=== PATIENT | female | born 2000 | race American Indian/Alaskan Native ===

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

== ENCOUNTER 2019-05-17 10:19 | Emergency (ER) | payer OTHER ==
[2019-05-17 11:22] LABS: Bacteria,Urine 1+ /HPF (Negative); Bilirubin,Urine NEG (Negative); Blood,Urine LG (Negative); Color,Urine Yellow (Yellow); Mucus,Urine 1+ /HPF; Urobilinogen,Urine < 2.0 mg/dL (<2.0)
[2019-05-17 11:28] LABS: HCG Qualitative,Urine Negative (Negative)
[2019-05-17 11:42] LABS: RBC,Urine > 182.0 /HPF (0.0-6.0)
[2019-05-17] MEDS ORDERED: TORADOL IM ONE (11:57)
[2019-05-17] MEDS ORDERED: PEPCID PO ONE (11:58)
[2019-05-17] MEDS ORDERED: CARAFATE PO ONE (11:58)
--- NOTE | 2019-05-17 11:59 | Emergency Department Report ---
ED Abdominal Pain HPI - General Chief Complaint: Extremity Injury, Lower Stated Complaint: PAIN/WEAKNESS Time Seen by Provider: 05/17/19 11:46 Source: patient, RN notes reviewed, old records reviewed Mode of arrival: Ambulatory Limitations: No Limitations - History of Present Illness Initial Comments: This is a 18-year-old female. Patient has been evaluated by myself in the past. The patient typically follows with "family practice." The patient presents to the ER today with a complaint of left lower quadrant pain. This pain is present since 4:00 in the morning. It is sharp and throbbing. It does not radiate anywhere. It does not have exacerbating or relieving factors. Patient reports seeing her final touch up painter yesterday, and reports having had a full gynecologic exam yesterday, including smears, and STI screening. She denies headache, neck pain, chest pain, right-sided abdominal pain, shortness of breath and urinary symptoms. The patient denies DVT, pulmonary embolus risk factors. Patient treated in the ER with intramuscular ketorolac, which improved her symptoms. In the past, patient has had pelvic ultrasounds, demonstrating co mplex cysts, with arterial blood flow present. MD Complaint: abdominal pain -: Gradual Location: LLQ Radiation: none Migration to: no migration Severity scale (0 -10): 0 Quality: cramping Consistency: intermittent Improves With: other Worsens With: other - Related Data Home Medications Medication Instructions Recorded Confirmed Last Taken Cetirizine HCl [Zyrtec] 10 mg PO DAILY 07/18/13 07/18/13 Unknown Previous Rx's Medication Instructions Recorded Last Taken Type Fluticasone Propionate [Flonase] 2 sprays NS QDAY #1 bottle 09/25/14 Unknown Rx predniSONE [Deltasone] 40 mg PO QDAY #10 tab 04/10/15 Unknown Rx Acetaminophen [Tylenol Arthritis] 650 mg PO Q6HR PRN #30 tablet.er 02/16/18 Unknown Rx Ibuprofen [Motrin] 600 mg PO Q8H PRN #30 tablet 02/16/18 Unknown Rx Ibuprofen [Motrin] 800 mg PO Q8HR PRN #20 tablet 03/17/18 Unknown Rx Ondansetron [Zofran Odt] 4 mg PO Q8HR PRN #10 tab.rapdis 03/17/18 Unknown Rx Dicyclomine [Bentyl] 10 mg PO BID #20 capsule 08/29/18 Unknown Rx Ondansetron [Zofran ODT TAB] 8 mg PO Q12HR #30 tab.rapdis 08/29/18 Unknown Rx Naproxen [Naprosyn] 500 mg PO BID #14 tablet 08/31/18 Unknown Rx 21/Iron Fu/Folic Acid 1 each PO DAILY #30 tablet 11/08/18 Unknown Rx [ Complete Caplet] Acetaminophen [Non-Aspirin Extra 500 mg PO Q6HR PRN #30 tablet 05/17/19 Unknown Rx Strength] Dicyclomine [Bentyl] 10 mg PO QID PRN #20 capsule 05/17/19 Unknown Rx Ibuprofen [Motrin] 600 mg PO Q8H PRN #30 tablet 05/17/19 Unknown Rx Allergies Allergy/AdvReac Type Severity Reaction Status Date / Time No Known Allergies Allergy Verified 09/24/14 20:10 ED Review of Systems ROS: Stated complaint: PAIN/WEAKNESS Other details as noted in HPI Constitutional: denies: fever, malaise Eyes: denies: vision change ENT: denies: epistaxis Respiratory: denies: cough Cardiovascular: denies: chest pain Gastrointestinal: abdominal pain. denies: nausea, vomiting Genitourinary: denies: dysuria Musculoskeletal: denies: back pain Skin: denies: lesions Psychiatric: denies: as per HPI Hematological/Lymphatic: denies: easy bleeding ED Past Medical Hx - Past Medical History Hx Asthma: Yes Additional medical history: sinus - Surgical History Past Surgical History?: No - Social History Smoking Status: Never Smoker Substance Use Type: None - Medications Home Medications: Home Medications Medication Instructions Recorded Confirmed Last Taken Type Cetirizine HCl [Zyrtec] 10 mg PO DAILY 07/18/13 07/18/13 Unknown History Fluticasone Propionate [Flonase] 2 sprays NS QDAY #1 bottle 09/25/14 Unknown Rx predniSONE [Deltasone] 40 mg PO QDAY #10 tab 04/10/15 Unknown Rx Acetaminophen [Tylenol Arthritis] 650 mg PO Q6HR PRN #30 tablet.er 02/16/18 Unknown Rx Ibuprofen [Motrin] 600 mg PO Q8H PRN #30 tablet 02/16/18 Unknown Rx Ibuprofen [Motrin] 800 mg PO Q8HR PRN #20 tablet 03/17/18 Unknown Rx Ondansetron [Zofran Odt] 4 mg PO Q8HR PRN #10 tab.rapdis 03/17/18 Unknown Rx Dicyclomine [Bentyl] 10 mg PO BID #20 capsule 08/29/18 Unknown Rx Ondansetron [Zofran ODT TAB] 8 mg PO Q12HR #30 tab.rapdis 08/29/18 Unknown Rx Naproxen [Naprosyn] 500 mg PO BID #14 tablet 08/31/18 Unknown Rx 21/Iron Fu/Folic Acid 1 each PO DAILY #30 tablet 11/08/18 Unknown Rx [ Complete Caplet] Acetaminophen [Non-Aspirin Extra 500 mg PO Q6HR PRN #30 tablet 05/17/19 Unknown Rx Strength] Dicyclomine [Bentyl] 10 mg PO QID PRN #20 capsule 05/17/19 Unknown Rx Ibuprofen [Motrin] 600 mg PO Q8H PRN #30 tablet 05/17/19 Unknown Rx ED Physical Exam - General Limitations: No Limitations General appearance: alert, in no apparent distress, obese - Head Head exam: Present: atraumatic, normocephalic - Eye Eye exam: Present: normal appearance, EOMI. Absent: nystagmus - ENT ENT exam: Present: normal exam, normal orophraynx, mucous membranes moist, normal external ear exam - Neck Neck exam: Present: normal inspection, full ROM. Absent: tenderness, meningismus - Respiratory Respiratory exam: Present: normal lung sounds bilaterally. Absent: respiratory distress - Cardiovascular Cardiovascular Exam: Present: regular rate, normal rhythm, normal heart sounds. Absent: bradycardia, tachycardia, irregular rhythm, systolic murmur, diastolic murmur, rubs, gallop - GI/Abdominal GI/Abdominal exam: Present: soft. Absent: distended, tenderness, guarding, rebound, rigid, pulsatile mass - Extremities Exam Extremities exam: Present: normal inspection, full ROM, other (2+ pulses noted in the bilateral upper, lower extremities. Compartments soft. No long bony tenderness. The pelvis is stable.). Absent: pedal edema, joint swelling, calf tenderness - Back Exam Back exam: Present: normal inspection, full ROM. Absent: tenderness, CVA tenderness (R), CVA tenderness (L), paraspinal tenderness, vertebral tenderness - Neurological Exam Neurological exam: Present: alert, other (Extraocular movements intact. Tongue midline. No facial droop. Facial sensation intact to light touch in the V1, V2, V3 distribution bilaterally. 5 and 5 strength in 4 extremities.. Sensation is intact to light touch in 4 extremities.). Absent: motor sensory deficit - Psychiatric Psychiatric exam: Present: normal affect, normal mood - Skin Skin exam: Present: warm, dry, intact, normal color. Absent: rash ED Course Vital Signs 05/17/19 05/17/19 05/17/19 10:28 11:40 13:22 Temperature 97.9 F Pulse Rate 109 H 87 68 Respiratory 22 16 18 Rate Blood Pressure 133/73 Blood Pressure 126/63 123/80 [Left] O2 Sat by Pulse 100 99 99 Oximetry - Reevaluation(s) Reevaluation #1: 05/17/19 14:07 Differential diagnosis, including but not limited to: Ovarian cyst, urinary tract infection, dysmenorrhea, dysfunctional uterine bleeding, constipation Assessment and plan: This is a 18-year-old female with recurrent abdominal pain. The patient is afebrile with reassuring vital signs. 08 tachycardia has resolved. I have evaluated this patient in the past for similar symptoms. Laboratory studies unremarkable. Patient nurses having a gynecologic examination yesterday. She is nontender, and does not appear to be in any acute distress, therefore, ovarian torsion is quite unlikely. X-ray of the abdomen negative for acute disease, pelvic ultrasound ordered and pending at this time. 14:10 Reevaluation #2: 05/17/19 14:22 Patient noted to be playing on cell phone, and perusing social media. She is requesting to eat and drink. Belly soft on repeat exam. Ultrasound negative for acute disease. ED Medical Decision Making - Lab Data Result diagrams: 05/17/19 12:27 05/17/19 12:27 Vital Signs 05/17/19 05/17/19 05/17/19 10: 11:40 13:22 Temperature 97.9 F Pulse Rate 109 H 87 68 Respiratory 22 16 18 Rate Blood Pressure 133/73 Blood Pressure 126/63 123/80 [Left] O2 Sat by Pulse 100 99 99 Oximetry Lab Results 05/17/19 05/17/19 05/17/19 Range/Units 10:41 12:27 12:27 WBC 9.6 (4.5-11.0) K/mm3 RBC 4.23 (3.65-5.03) M/mm3 Hgb 12.3 (10.1-14.3) gm/dl Hct 37.7 (30.3-42.9) % MCV 89 (79-97) fl MCH 29 (28-32) pg MCHC 33 (30-34) % RDW 13.4 (13.2-15.2) % Plt Count 349 (140-440) K/mm3 Sodium 143 (137-145) mmol/L Potassium 4.1 (3.6-5.0) mmol/L Chloride 103.5 (98-107) mmol/L Carbon Dioxide 28 (22-30) mmol/L Anion Gap 16 mmol/L BUN 10 (7-17) mg/dL Creatinine 0.7 (0.7-1.2) mg/dL Estimated GFR > 60 ml/min BUN/Creatinine Ratio 14 % Glucose 106 H (65-100) mg/dL Calcium 9.5 (8.4-10.2) mg/dL Magnesium (1.7-2.3) mg/dL Total Bilirubin 0.30 (0.1-1.2) mg/dL AST 15 (5-40) units/L ALT 10 (7-56) units/L Alkaline Phosphatase 86 (35-129) units/L Total Creatine Kinase (30-135) units/L Total Protein 8.0 (6.3-8.2) g/dL Albumin 4.4 (3.9-5) g/dL Albumin/Globulin Ratio 1.2 % Lipase 14 (13-60) units/L Urine Color Yellow (Yellow) Urine Turbidity Clear (Clear) Urine pH 6.0 (5.0-7.0) Ur Specific Cardale 1.012 (1.003-1.030) Urine Protein 30 mg/dl (Negative) mg/dL Urine Glucose (UA) Neg (Negative) mg/dL Urine Ketones Neg (Negative) mg/dL Urine Blood Lg (Negative) Urine Nitrite Neg (Negative) Urine Bilirubin Neg (Negative) Urine Urobilinogen < 2.0 (<2.0) mg/dL Ur Leukocyte Esterase Sm (Negative) Urine WBC (Auto) 5.0 (0.0-6.0) /HPF Urine RBC (Auto) > 182.0 (0.0-6.0) /HPF U Epithel Cells (Auto) 3.0 (0-13.0) /HPF Urine Bacteria (Auto) 1+ (Negative) /HPF Urine Mucus 1+ /HPF Urine HCG, Qual Negative (Negative) 05/17/19 Range/Units 12:27 WBC (4.5-11.0) K/mm3 RBC (3.65-5.03) M/mm3 Hgb (10.1-14.3) gm/dl Hct (30.3-42.9) % MCV (79-97) fl MCH (28-32) pg MCHC (30-34) % RDW (13.2-15.2) % Plt Count (140-440) K/mm3 Sodium (137-145) mmol/L Potassium (3.6-5.0) mmol/L Chloride (98-107) mmol/L Carbon Dioxide (22-30) mmol/L Anion Gap mmol/L BUN (7-17) mg/dL Creatinine (0.7-1.2) mg/dL Estimated GFR ml/min BUN/Creatinine Ratio % Glucose (65-100) mg/dL Calcium (8.4-10.2) mg/dL Magnesium 1.90 (1.7-2.3) mg/dL Total Bilirubin (0.1-1.2) mg/dL AST (5-40) units/L ALT (7-56) units/L Alkaline Phosphatase (35-129) units/L Total Creatine Kinase 220 H (30-135) units/L Total Protein (6.3-8.2) g/dL Albumin (3.9-5) g/dL Albumin/Globulin Ratio % Lipase (13-60) units/L Urine Color (Yellow) Urine Turbidity (Clear) Urine pH (5.0-7.0) Ur Specific Cardale (1.003-1.030) Urine Protein (Negative) mg/dL Urine Glucose (UA) (Negative) mg/dL Urine Ketones (Negative) mg/dL Urine Blood (Negative) Urine Nitrite (Negative) Urine Bilirubin (Negative) Urine Urobilinogen (<2.0) mg/dL Ur Leukocyte Esterase (Negative) Urine WBC (Auto) (0.0-6.0) /HPF Urine RBC (Auto) (0.0-6.0) /HPF U Epithel Cells (Auto) (0-13.0) /HPF Urine Bacteria (Auto) (Negative) /HPF Urine Mucus /HPF Urine HCG, Qual (Negative) - Radiology Data Radiology results: report reviewed, image reviewed Ordering Physician: MARIBEL ROMANO MD Date of Service: 05/17/19 Procedure(s): XR abdomen 2V Accession Number(s): [id number] cc: MARIBEL ROMANO MD Fluoro Time In Minutes: SUPINE AND UPRIGHT ABDOMEN 05/17/2019 12:10 PM HISTORY: Abdominal Pain. FINDINGS: There is a normal bowel gas pattern without evidence of obstruction. No free air is identified. No abnormal calcifications or organomegaly. No osseous abnormality. A metal piercing in the umbilicus. IMPRESSION: Negative 2 views of the abdomen. Signer Name: Ledy Frazier MD Signed: 05/17/2019 12:31 PM Workstation Name: [id number] Transcribed By: REF Dictated By: LEDY FRAZIER MD Electronically Authenticated By: LEDY FRAZIER MD Signed Date/Time: 05/17/19 1231 Patient Name: DUNIA WATT Gender: Female Date of : 2000 Referring Provider: MARIBEL ROMAON Organization: [facility] Accession Number: [id number] Requested Date: May 17, 2019 11:57 Report Status: Final Requested Procedure: 1 Procedure Description: US transvaginal Modality: US Findings Reporting MD: Nathan Patel Dictation Time: May 17, 2019 12:36 Parasitologist: Not available Regional [facility]ster Date: Pelvic Ultrasound HISTORY: lower abd pain. Acute lower abdominal pain TECHNIQUE: Grayscale and color Doppler imaging performed. COMPARISON: Pelvic ultrasound from 10/10/2018 FINDINGS: Transabdominal and endovaginal imaging was performed. Uterus measures 7.2 x 2.6 x 3.8 cm in AP, transverse, and craniocaudal dimensions. The endometrial echo complex measures 3 mm. Uterus appears normal in echogenicity. Both ovaries are normal in size with small bilateral ovarian follicles. No appreciable pelvic free fluid. There is retained normal blood flow within the ovaries. IMPRESSION: Unremarkable exam. Signer Name: Nathan Patel MD Signed: 05/17/2019 12:36 PM Workstation Name: [id number] HISTORY: lower abd pain. Acute lower abdominal pain TECHNIQUE: Grayscale and color Doppler imaging performed. COMPARISON: Pelvic ultrasound from 10/10/2018 FINDINGS: Transabdominal and endovaginal imaging was performed. Uterus measures 7.2 x 2.6 x 3.8 cm in AP, transverse, and craniocaudal dimensions. The endometrial echo complex measures 3 mm. Uterus appears normal in echogenicity. Both ovaries are normal in size with small bilateral ovarian follicles. No appreciable pelvic free fluid. There is retained normal blood flow within the ovaries. IMPRESSION: Unremarkable exam. Critical care attestation.: If time is entered above; I have spent that time in minutes in the direct care of this critically ill patient, excluding procedure time. ED Disposition Clinical Impression: Left sided abdominal pain Disposition: DC-01 TO HOME OR SELFCARE Is pt being admited?: No Does the pt Need Aspirin: No Condition: Stable Instructions: Abdominal Pain (ED) Additional Instructions: Take the pain medications as needed/directed. Rest, avoid heavy lifting, and avoid strenuous physical activities. Please follow up with a primary care doctor or [employer] physician within the next few weeks. Return to the emergency room right away with projectile vomiting, change in mental status, confusion, inability to tolerate liquid feeds, new, worsening or different symptoms not present on initial emergency room evaluation. Avoid consumption of heavy, spicy foods, drink 4-6 cups of water per day, and eat plenty of fiber and vegetables. Prescriptions: Dicyclomine [Bentyl] 10 mg PO QID PRN #20 capsule PRN Reason: Pain Ibuprofen [Motrin] 600 mg PO Q8H PRN #30 tablet PRN Reason: Pain Acetaminophen [Non-Aspirin Extra Strength] 500 mg PO Q6HR PRN #30 tablet PRN Reason: Pain , Severe (7-10) Referrals: CORY JEFF MD [Primary Care Provider] - 3-5 Days
--- NOTE | 2019-05-17 12:36 | XRay Report ---
SUPINE AND UPRIGHT ABDOMEN 05/17/2019 12:10 PM HISTORY: Abdominal Pain. FINDINGS: There is a normal bowel gas pattern without evidence of obstruction. No free air is identi fied. No abnormal calcifications or organomegaly. No osseous abnormality. A metal piercing in the umbilicus. IMPRESSION: Negative 2 views of the abdomen. Signer Name: Salvador Boudreaux MD Signed: 05/17/2019 12:31 PM Workstation Name: [id number]
[2019-05-17 12:43] LABS: Hematocrit 37.7 % (30.3-42.9); Hemoglobin 12.3 gm/dl (10.1-14.3); Mean Corpuscular HGB Conc 33 % (30-34); Mean Corpuscular Volume 89 fl (79-97); Platelet Count 349 K/mm3 (140-440); Red Blood Count 4.23 M/mm3 (3.65-5.03); Red Cell Distribution Width 13.4 % (13.2-15.2)
[2019-05-17 12:57] LABS: Alanine Aminotransferase 10 units/L (7-56); Albumin 4.4 g/dL (3.9-5); BUN/Creatinine Ratio 14; Blood Urea Nitrogen 10 mg/dL (7-17); Calcium 9.5 mg/dL (8.4-10.2); Hemolysis Index 4
[2019-05-17 14:30] VITALS: BP 102/53
--- NOTE | 2019-05-18 08:11 | Ultrasound Report ---
Pelvic Ultrasound HISTORY: lower abd pain. Acute lower abdominal pain TECHNIQUE: Grayscale and color Doppler imaging performed. COMPARISON: Pelvic ultrasound from 10/10/2018 FINDINGS: Transabdominal and endovaginal imaging was performed. Uterus measures 7.2 x 2.6 x 3.8 cm in AP, transverse, and craniocaudal dimensions. The endometrial ec ho complex measures 3 mm. Uterus appears normal in echogenicity. Both ovaries are normal in size with small bilateral ovarian follicles. No appreciable pelvic free fluid. There is retained normal blood flow within the ovaries. IMPRESSION: Unremarkable exam. Signer Name: Nathan Patel MD Signed: 05/17/2019 1:36 PM Workstation Name: [id number]
== END 2019-05-17 14:30 | disposition home or self-care (01) ==
LOC: ED 10:19
DX: R10.32 Left lower quadrant pain (principal); J45.909 Unspecified asthma, uncomplicated; Z79.1 Long term (current) use of non-steroidal anti-inflammatories (NSAID); Z79.899 Other long term (current) drug therapy
CPT/HCPCS: 36415; 74019; 76830; 80053; 81001; 81025; 82550; 83690; 83735; 85027; 93975; 96372; 99284; J1885

== ENCOUNTER 2019-07-16 16:33 | Emergency (ER) | payer OTHER ==
--- NOTE | 2019-07-16 16:39 | Event Note ---
ED Screening Note ED Screening Note: lower abd pain for a qweek lower back pain states having "heart burn" intermittent n/v no diarrhea +urinary frequency LNMP: june 11 PMHx asthma no allergies to meds This initial assessment/diagnostic orders/clinical plan/treatment(s) is/are subject to change based on patients health status, clinical progression and re- assessment by fellow clinical providers in the ED. Further treatment and workup at subsequent clinical providers discretion. Patient/guardian urged not to elope from the ED as their condition may be serious if not clinically assessed and managed. Initial orders include: labs, UA
[2019-07-16 17:05] LABS: Bacteria,Urine 1+ /HPF (Negative); Bilirubin,Urine NEG (Negative); Blood,Urine NEG (Negative); Color,Urine Yellow (Yellow); Mucus,Urine FEW /HPF; Protein,Urine <15 mg/dL mg/dL (Negative); Urobilinogen,Urine < 2.0 mg/dL (<2.0); WBC,Urine < 1.0 /HPF (0.0-6.0)
[2019-07-16 17:19] LABS: Basophils % (Auto) 0.4 % (0.0-1.8); Eosinophils # (Auto) 0.1 K/mm3 (0.0-0.4); Eosinophils % (Auto) 0.6 % (0.0-4.3); Hematocrit 34.5 % (30.3-42.9); Hemoglobin 11.4 gm/dl (10.1-14.3); Lymphocytes # (Auto) 3.7 K/mm3 (1.2-5.4); Mean Corpuscular HGB Conc 33 % (30-34); Mean Corpuscular Volume 91 fl (79-97); Monocytes # (Auto) 0.7 K/mm3 (0.0-0.8); Monocytes % (Auto) 6.2 % (0.0-7.3); Platelet Count 287 K/mm3 (140-440); Red Blood Count 3.81 M/mm3 (3.65-5.03); Red Cell Distribution Width 13.7 % (13.2-15.2)
[2019-07-16 17:37] LABS: Alanine Aminotransferase 10 units/L (7-56); Albumin 4.2 g/dL (3.9-5); BUN/Creatinine Ratio 11; Blood Urea Nitrogen 9 mg/dL (7-17); Calcium 9.1 mg/dL (8.4-10.2); Hemolysis Index 3
[2019-07-16] MEDS ORDERED: DICYCLOMINE 20 MG/2 ML INJ IM ONE (17:55)
[2019-07-16] MEDS ORDERED: ONDANSETRON 4 MG/2 ML INJ IM ONE (17:55)
[2019-07-16] MEDS ORDERED: KETOROLAC 60 MG/2 ML INJ IM ONE (17:55)
--- NOTE | 2019-07-16 18:19 | Emergency Department Report ---
ED Abdominal Pain HPI - General Chief Complaint: Abdominal Pain Stated Complaint: ABD PAIN/VOMITING Time Seen by Provider: 07/16/19 16:38 Source: patient Mode of arrival: Ambulatory Limitations: No Limitations - History of Present Illness MD Complaint: abdominal pain -: Gradual, week(s) (1) Location: RUQ, epigastric Radiation: back Migration to: no migration Severity scale (0 -10): 7 Quality: cramping, aching Consistency: intermittent, colicky Improves With: rest Worsens With: eating Context: other (patient believes that her symptoms are coming from eating spicy foods. Despite having worsening symptoms after eating potato chips patient is continued) Associated Symptoms: nausea, vomiting. denies: diarrhea, fever, chills, constipation, dysuria, hematemesis - Related Data Home Medications Medication Instructions Recorded Confirmed Last Taken Cetirizine HCl [Zyrtec] 10 mg PO DAILY 07/18/13 07/18/13 Unknown Previous Rx's Medication Instructions Recorded Last Taken Type Fluticasone Propionate [Flonase] 2 sprays NS QDAY #1 bottle 09/25/14 Unknown Rx predniSONE [Deltasone] 40 mg PO QDAY #10 tab 04/10/15 Unknown Rx Acetaminophen [Tylenol Arthritis] 650 mg PO Q6HR PRN #30 tablet.er 02/16/18 U nknown Rx Ibuprofen [Motrin] 600 mg PO Q8H PRN #30 tablet 02/16/18 Unknown Rx Ibuprofen [Motrin] 800 mg PO Q8HR PRN #20 tablet 03/17/18 Unknown Rx Ondansetron [Zofran Odt] 4 mg PO Q8HR PRN #10 tab.rapdis 03/17/18 Unknown Rx Dicyclomine [Bentyl] 10 mg PO BID #20 capsule 08/29/18 Unknown Rx Ondansetron [Zofran ODT TAB] 8 mg PO Q12HR #30 tab.rapdis 08/29/18 Unknown Rx Naproxen [Naprosyn] 500 mg PO BID #14 tablet 08/31/18 Unknown Rx 21/Iron Fu/Folic Acid 1 each PO DAILY #30 tablet 11/08/18 Unknown Rx [ Complete Caplet] Acetaminophen [Non-Aspirin Extra 500 mg PO Q6HR PRN #30 tablet 05/17/19 Unknown Rx Strength] Dicyclomine [Bentyl] 10 mg PO QID PRN #20 capsule 05/17/19 Unknown Rx Ibuprofen [Motrin] 600 mg PO Q8H PRN #30 tablet 05/17/19 Unknown Rx Ondansetron [Zofran Odt] 4 mg PO Q8HR #10 tab.rapdis 07/16/19 Unknown Rx Pantoprazole [Protonix] 40 mg PO QDAY #30 tablet 07/16/19 Unknown Rx traMADol [Ultram] 50 mg PO Q6HR PRN #12 tablet 07/16/19 Unknown Rx Allergies Allergy/AdvReac Type Severity Reaction Status Date / Time No Known Allergies Allergy Verified 09/24/14 20:10 ED Review of Systems ROS: Stated complaint: ABD PAIN/VOMITING Other details as noted in HPI ED Past Medical Hx - Past Medical History Previous Medical History?: Yes Hx Asthma: Yes Additional medical history: sinus - Surgical History Past Surgical History?: No - Social History Smoking Status: Never Smoker Substance Use Type: None - Medications Home Medications: Home Medications Medication Instructions Recorded Confirmed Last Taken Type Cetirizine HCl [Zyrtec] 10 mg PO DAILY 07/18/13 07/18/13 Unknown History Fluticasone Propionate [Flonase] 2 sprays NS QDAY #1 bottle 09/25/14 Unknown Rx predniSONE [Deltasone] 40 mg PO QDAY #10 tab 04/10/15 Unknown Rx Acetaminophen [Tylenol Arthritis] 650 mg PO Q6HR PRN #30 tablet.er 02/16/18 Unknown Rx Ibuprofen [Motrin] 600 mg PO Q8H PRN #30 tablet 02/16/18 Unknown Rx Ibuprofen [Motrin] 800 mg PO Q8HR PRN #20 tablet 03/17/18 Unknown Rx Ondansetron [Zofran Odt] 4 mg PO Q8HR PRN #10 tab.rapdis 03/17/18 Unknown Rx Dicyclomine [Bentyl] 10 mg PO BID #20 capsule 08/29/18 Unknown Rx Ondansetron [Zofran ODT TAB] 8 mg PO Q12HR #30 tab.rapdis 08/29/18 Unknown Rx Naproxen [Naprosyn] 500 mg PO BID #14 tablet 08/31/18 Unknown Rx 21/Iron Fu/Folic Acid 1 each PO DAILY #30 tablet 11/08/18 Unknown Rx [ Complete Caplet] Acetaminophen [Non-Aspirin Extra 500 mg PO Q6HR PRN #30 tablet 05/17/19 Unknown Rx Strength] Dicyclomine [Bentyl] 10 mg PO QID PRN #20 capsule 05/17/19 Unknown Rx Ibuprofen [Motrin] 600 mg PO Q8H PRN #30 tablet 05/17/19 Unknown Rx Ondansetron [Zofran Odt] 4 mg PO Q8HR #10 tab.rapdis 07/16/19 Unknown Rx Pantoprazole [Protonix] 40 mg PO QDAY #30 tablet 07/16/19 Unknown Rx traMADol [Ultram] 50 mg PO Q6HR PRN #12 tablet 07/16/19 Unknown Rx ED Physical Exam - General Limitations: No Limitations ED Course Vital Signs 07/16/19 16:35 Temperature 98.7 F Pulse Rate 98 H Respiratory 18 Rate Blood Pressure 152/93 O2 Sat by Pulse 96 Oximetry ED Medical Decision Making - Lab Data Result diagrams: 07/16/19 16:57 07/16/19 16:57 - Radiology Data [facility] [address] [place] [address] Ultrasound Report Signed Patient: DUNIA WATT MR#: [id number] : 2000 Acct:[id number] Age/Sex: 18 / F ADM Date: 07/16/19 Loc: ED Attending Dr: Ordering Physician: PRANEETH BRUNER MD Date of Service: 07/16/19 Procedure(s): US abdomen limited Accession Number(s): [id number] cc: PRANEETH BRUNER MD ULTRASOUND ABDOMEN, LIMITED (RIGHT UPPER QUADRANT) INDICATION: RUQ pain with nausea and vomiting for 1 week. COMPARISON: None available. FINDINGS: PANCREAS: Visualized portion shows no significant abnormality. LIVER: 15.5 cm in length with a normal echo pattern compared to the right renal cortex. No focal lesion. GALLBLADDER: Mildly contracted and thick-walled without visible gallstones. BILE DUCTS: No significant abnormality. Common bile duct measures 3.6 mm. FREE FLUID: None. ADDITIONAL FINDINGS: Images of the right kidney are unremarkable. IMPRESSION: Mildly contracted gallbladder without gallstones. Signer Name: Krzysztof Hurst MD Signed: 07/16/2019 7:52 PM Workstation Name: [id number] Transcribed By: RT Dictated By: Krzysztof Hurst MD Electronically Authenticated By: Krzysztof Hurst MD Signed Date/Time: 07/16/191951 - Medical Decision Making Patient's pleasant differential diagnosis which includes cholelithiasis cholecystitis pancreatitis gastric or duodenal ulcers hiatal hernia and GERD. Patient's ultrasound is not consistent with gallstones. Patient will be referred to gastroenterology for possible EGD. Patient will be discharged home with medications for symptomatic relief. Critical care attestation.: If time is entered above; I have spent that time in minutes in the direct care of this critically ill patient, excluding procedure time. ED Disposition Clinical Impression: PUD (peptic ulcer disease) Disposition: DC-01 TO HOME OR SELFCARE Is pt being admited?: No Does the pt Need Aspirin: No Condition: Stable Instructions: Abdominal Pain (ED), Peptic Ulcer (ED), Gastritis (ED) Referrals: [facility] [Provider Group] - 3-5 Days Time of Disposition: 20:18
--- NOTE | 2019-07-16 19:57 | Ultrasound Report ---
ULTRASOUND ABDOMEN, LIMITED (RIGHT UPPER QUADRANT) INDICATION: RUQ pain with nausea and vomiting for 1 week. COMPARISON: None available. FINDINGS: PANCREAS: Visualized portion shows no significant abnormality. LIVER: 15.5 cm in length with a normal echo pattern compared to the right renal cortex. No focal lesi on. GALLBLADDER: Mildly contracted and thick-walled without visible gallstones. BILE DUCTS: No significant abnormality. Common bile duct measures 3.6 mm. FREE FLUID: None. ADDITIONAL FINDINGS: Images of the right kidney are unremarkable. IMPRESSION: Mildly contracted gallbladder without gallstones. Signer Name: Krzysztof Hurst MD Signed: 07/16/2019 7:52 PM Workstation Name: [id number]
[2019-07-16 20:40] VITALS: BP 138/88
== END 2019-07-16 20:34 | disposition home or self-care (01) ==
LOC: ED 16:33
DX: K27.9 Peptic ulcer, site unspecified, unspecified as acute or chronic, without hemorrhage or perforation (principal); J45.909 Unspecified asthma, uncomplicated; Z79.899 Other long term (current) drug therapy
CPT/HCPCS: 36415; 76705; 80053; 81001; 83690; 84702; 85025; 96372; 99284; J0500; J1885; J2405

== ENCOUNTER 2019-08-29 03:33 | Emergency (ER) | payer SELFPAY ==
[2019-08-29] MEDS ORDERED: ACETAMINOPHEN 325 MG TAB PO ONE (04:00)
[2019-08-29 04:30] LABS: Basophils % (Auto) 0.2 % (0.0-1.8); Eosinophils % (Auto) 0.2 % (0.0-4.3); Hematocrit 36.2 % (30.3-42.9); Hemoglobin 12.1 gm/dl (10.1-14.3); Lymphocytes # (Auto) 2.5 K/mm3 (1.2-5.4); Lymphocytes % (Auto) 17.4 % (13.4-35.0); Mean Corpuscular HGB Conc 33 % (30-34); Mean Corpuscular Volume 90 fl (79-97); Monocytes # (Auto) 0.6 K/mm3 (0.0-0.8); Monocytes % (Auto) 4.5 % (0.0-7.3); Platelet Count 335 K/mm3 (140-440); Red Blood Count 4.05 M/mm3 (3.65-5.03); Red Cell Distribution Width 13.3 % (13.2-15.2)
[2019-08-29 04:30] LABS: Bacteria,Urine 1+ /HPF (Negative); Bilirubin,Urine NEG (Negative); Blood,Urine NEG (Negative); Color,Urine Yellow (Yellow); Mucus,Urine FEW /HPF; Protein,Urine <15 mg/dL mg/dL (Negative); Urobilinogen,Urine < 2.0 mg/dL (<2.0)
[2019-08-29 04:53] LABS: Alanine Aminotransferase 14 units/L (7-56); Albumin 4.5 g/dL (3.9-5); BUN/Creatinine Ratio 13; Blood Urea Nitrogen 9 mg/dL (7-17); Calcium 9.7 mg/dL (8.4-10.2); Hemolysis Index 4
[2019-08-29] MEDS ORDERED: SODIUM CHLORIDE 0.9% 1000 ML 1,000 ML IV ONE (05:58)
[2019-08-29] MEDS ORDERED: ONDANSETRON 4 MG/2 ML INJ IV ONE (05:58)
[2019-08-29] MEDS ORDERED: MORPHINE 4 MG/1 ML INJ IV ONE (05:58)
--- NOTE | 2019-08-29 06:12 | Emergency Department Report ---
ED Abdominal Pain HPI - General Chief Complaint: Abdominal Pain Stated Complaint: PAIN, UNABLE TO SLEEP Time Seen by Provider: 08/29/19 05:35 Source: patient Mode of arrival: Ambulatory Limitations: No Limitations - History of Present Illness Initial Comments: Patient is a 18-year-old female presents emergency room with complaints of right sided abdominal pain and right lower back pain that began last night. She states she has not had a bowel movement in approximately 4-5 days. She states she has associated nausea and 2 episodes of vomiting. She denies any diarrhea, fever, urinary symptoms, any other symptoms. She states her last menstrual cyc le was 08/14/2019. She denies any past medical history or allergies medications. - Related Data Home Medications Medication Instructions Recorded Confirmed Last Taken Cetirizine HCl [Zyrtec] 10 mg PO DAILY 07/18/13 07/18/13 Unknown Previous Rx's Medication Instructions Recorded Last Taken Type Fluticasone Propionate [Flonase] 2 sprays NS QDAY #1 bottle 09/25/14 Unknown Rx predniSONE [Deltasone] 40 mg PO QDAY #10 tab 04/10/15 Unknown Rx Acetaminophen [Tylenol Arthritis] 650 mg PO Q6HR PRN #30 tablet.er 02/16/18 Un known Rx Ibuprofen [Motrin] 600 mg PO Q8H PRN #30 tablet 02/16/18 Unknown Rx Ibuprofen [Motrin] 800 mg PO Q8HR PRN #20 tablet 03/17/18 Unknown Rx Ondansetron [Zofran Odt] 4 mg PO Q8HR PRN #10 tab.rapdis 03/17/18 Unknown Rx Dicyclomine [Bentyl] 10 mg PO BID #20 capsule 08/29/18 Unknown Rx Ondansetron [Zofran ODT TAB] 8 mg PO Q12HR #30 tab.rapdis 08/29/18 Unknown Rx Naproxen [Naprosyn] 500 mg PO BID #14 tablet 08/31/18 Unknown Rx 21/Iron Fu/Folic Acid 1 each PO DAILY #30 tablet 11/08/18 Unknown Rx [ Complete Caplet] Acetaminophen [Non-Aspirin Extra 500 mg PO Q6HR PRN #30 tablet 05/17/19 Unknown Rx Strength] Dicyclomine [Bentyl] 10 mg PO QID PRN #20 capsule 05/17/19 Unknown Rx Ibuprofen [Motrin] 600 mg PO Q8H PRN #30 tablet 05/17/19 Unknown Rx Ondansetron [Zofran Odt] 4 mg PO Q8HR #10 tab.rapdis 07/16/19 Unknown Rx Pantoprazole [Protonix] 40 mg PO QDAY #30 tablet 07/16/19 Unknown Rx traMADoL [Ultram] 50 mg PO Q6HR PRN #12 tablet 07/16/19 Unknown Rx Famotidine [Pepcid] 40 mg PO QHS #30 tablet 08/29/19 Unknown Rx Polyethylene Glycol 3350 [Miralax] 7 gm PO DAILY PRN #1 powder 08/29/19 Unknown Rx Sucralfate [Carafate] 1 gm PO ACHS #21 tablet 08/29/19 Unknown Rx Allergies Allergy/AdvReac Type Severity Reaction Status Date / Time No Known Allergies Allergy Verified 09/24/14 20:10 ED Review of Systems ROS: Stated complaint: PAIN, UNABLE TO SLEEP Other details as noted in HPI Comment: All other systems reviewed and negative ED Past Medical Hx - Past Medical History Previous Medical History?: Yes Hx Asthma: Yes Additional medical history: sinus - Surgical History Past Surgical History?: No - Social History Smoking Status: Never Smoker Substance Use Type: None - Medications Home Medications: Home Medications Medication Instructions Recorded Confirmed Last Taken Type Cetirizine HCl [Zyrtec] 10 mg PO DAILY 07/18/13 07/18/13 Unknown History Fluticasone Propionate [Flonase] 2 sprays NS QDAY #1 bottle 09/25/14 Unknown Rx predniSONE [Deltasone] 40 mg PO QDAY #10 tab 04/10/15 Unknown Rx Acetaminophen [Tylenol Arthritis] 650 mg PO Q6HR PRN #30 tablet.er 02/16/18 Unknown Rx Ibuprofen [Motrin] 600 mg PO Q8H PRN #30 tablet 02/16/18 Unknown Rx Ibuprofen [Motrin] 800 mg PO Q8HR PRN #20 tablet 03/17/18 Unknown Rx Ondansetron [Zofran Odt] 4 mg PO Q8HR PRN #10 tab.rapdis 03/17/18 Unknown Rx Dicyclomine [Bentyl] 10 mg PO BID #20 capsule 08/29/18 Unknown Rx Ondansetron [Zofran ODT TAB] 8 mg PO Q12HR #30 tab.rapdis 08/29/18 Unknown Rx Naproxen [Naprosyn] 500 mg PO BID #14 tablet 08/31/18 Unknown Rx 21/Iron Fu/Folic Acid 1 each PO DAILY #30 tablet 11/08/18 Unknown Rx [ Complete Caplet] Acetaminophen [Non-Aspirin Extra 500 mg PO Q6HR PRN #30 tablet 05/17/19 Unknown Rx Strength] Dicyclomine [Bentyl] 10 mg PO QID PRN #20 capsule 05/17/19 Unknown Rx Ibuprofen [Motrin] 600 mg PO Q8H PRN #30 tablet 05/17/19 Unknown Rx Ondansetron [Zofran Odt] 4 mg PO Q8HR #10 tab.rapdis 07/16/19 Unknown Rx Pantoprazole [Protonix] 40 mg PO QDAY #30 tablet 07/16/19 Unknown Rx traMADoL [Ultram] 50 mg PO Q6HR PRN #12 tablet 07/16/19 Unknown Rx Famotidine [Pepcid] 40 mg PO QHS #30 tablet 08/29/19 Unknown Rx Polyethylene Glycol 3350 [Miralax] 7 gm PO DAILY PRN #1 powder 08/29/19 Unknown Rx Sucralfate [Carafate] 1 gm PO ACHS #21 tablet 08/29/19 Unknown Rx ED Physical Exam - General Limitations: No Limitations General appearance: alert, in no apparent distress - Head Head exam: Present: atraumatic, normocephalic - Eye Eye exam: Present: normal appearance - ENT ENT exam: Present: mucous membranes moist - Respiratory Respiratory exam: Present: normal lung sounds bilaterally. Absent: respiratory distress, wheezes, rales, rhonchi, stridor, chest wall tenderness, accessory muscle use, decreased breath sounds, prolonged expiratory - Cardiovascular Cardiovascular Exam: Present: regular rate, normal rhythm, normal heart sounds. Absent: systolic murmur, diastolic murmur, rubs, gallop - GI/Abdominal GI/Abdominal exam: Present: soft, tenderness (mild generalized), normal bowel sounds. Absent: distended, guarding, rebound, rigid - Neurological Exam Neurological exam: Present: alert, oriented X3 - Psychiatric Psychiatric exam: Present: normal affect, normal mood - Skin Skin exam: Present: warm, dry, intact ED Course Vital Signs 08/29/19 08/29/1919 03:48 04:00 05:00 Temperature 98.6 F Pulse Rate 128 H Respiratory 18 18 18 Rate Blood Pressure 156/86 Blood Pressure [Right] O2 Sat by Pulse 98 Oximetry 08/29/19 06:37 Temperature Pulse Rate 84 Respiratory 16 Rate Blood Pressure Blood Pressure 111/68 [Right] O2 Sat by Pulse 100 Oximetry ED Medical Decision Making - Lab Data Result diagrams: 08/29/19 04:05 08/29/19 04:05 Lab Results 08/29/19 08/29/19 08/29/19 Range/Units 03:52 04:05 04:05 WBC 14.3 H (4.5-11.0) K/mm3 RBC 4.05 (3.65-5.03) M/mm3 Hgb 12.1 (10.1-14.3) gm/dl Hct 36.2 (30.3-42.9) % MCV 90 (79-97) fl MCH 30 (28-32) pg MCHC 33 (30-34) % RDW 13.3 (13.2-15.2) % Plt Count 335 (140-440) K/mm3 Lymph % (Auto) 17.4 (13.4-35.0) % [place] % (Auto) 4.5 (0.0-7.3) % Eos % (Auto) 0.2 (0.0-4.3) % Baso % (Auto) 0.2 (0.0-1.8) % Lymph # 2.5 (1.2-5.4) K/mm3 [place] # 0.6 (0.0-0.8) K/mm3 Eos # 0.0 (0.0-0.4) K/mm3 Baso # 0.0 (0.0-0.1) K/mm3 Seg Neutrophils % 77.7 H (40.0-70.0) % Seg Neutrophils # 11.1 H (1.8-7.7) K/mm3 Sodium 144 (137-145) mmol/L Potassium 4.2 (3.6-5.0) mmol/L Chloride 98.5 (98-107) mmol/L Carbon Dioxide 25 (22-30) mmol/L Anion Gap 25 mmol/L BUN 9 (7-17) mg/dL Creatinine 0.7 (0.7-1.2) mg/dL Estimated GFR > 60 ml/min BUN/Creatinine Ratio 13 % Glucose 126 H (65-100) mg/dL Calcium 9.7 (8.4-10.2) mg/dL Total Bilirubin 0.20 (0.1-1.2) mg/dL AST 15 (5-40) units/L ALT 14 (7-56) units/L Alkaline Phosphatase 84 (35-129) units/L Total Protein 7.8 (6.3-8.2) g/dL Albumin 4.5 (3.9-5) g/dL Albumin/Globulin Ratio 1.4 % HCG, Qual (Negative) Urine Color Yellow (Yellow) Urine Turbidity Slightly-cloudy (Clear) Urine pH 6.0 (5.0-7.0) Ur Specific [place] 1.016 (1.003-1.030) Urine Protein <15 mg/dl (Negative) mg/dL Urine Glucose (UA) Neg (Negative) mg/dL Urine Ketones Neg (Negative) mg/dL Urine Blood Neg (Negative) Urine Nitrite Neg (Negative) Urine Bilirubin Neg (Negative) Urine Urobilinogen < 2.0 (<2.0) mg/dL Ur Leukocyte Esterase Neg (Negative) Urine WBC (Auto) 1.0 (0.0-6.0) /HPF Urine RBC (Auto) 2.0 (0.0-6.0) /HPF U Epithel Cells (Auto) 14.0 H (0-13.0) /HPF Urine Bacteria (Auto) 1+ (Negative) /HPF Urine Mucus Few /HPF 08/29/19 Range/Units 04:05 WBC (4.5-11.0) K/mm3 RBC (3.65-5.03) M/mm3 Hgb (10.1-14.3) gm/dl Hct (30.3-42.9) % MCV (79-97) fl MCH (28-32) pg MCHC (30-34) % RDW (13.2-15.2) % Plt Count (140-440) K/mm3 Lymph % (Auto) (13.4-35.0) % [place] % (Auto) (0.0-7.3) % Eos % (Auto) (0.0-4.3) % Baso % (Auto) (0.0-1.8) % Lymph # (1.2-5.4) K/mm3 [place] # (0.0-0.8) K/mm3 Eos # (0.0-0.4) K/mm3 Baso # (0.0-0.1) K/mm3 Seg Neutrophils % (40.0-70.0) % Seg Neutrophils # (1.8-7.7) K/mm3 Sodium (137-145) mmol/L Potassium (3.6-5.0) mmol/L Chloride (98-107) mmol/L Carbon Dioxide (22-30) mmol/L Anion Gap mmol/L BUN (7-17) mg/dL Creatinine (0.7-1.2) mg/dL Estimated GFR ml/min BUN/Creatinine Ratio % Glucose (65-100) mg/dL Calcium (8.4-10.2) mg/dL Total Bilirubin (0.1-1.2) mg/dL AST (5-40) units/L ALT (7-56) units/L Alkaline Phosphatase (35-129) units/L Total Protein (6.3-8.2) g/dL Albumin (3.9-5) g/dL Albumin/Globulin Ratio % HCG, Qual Negative (Negative) Urine Color (Yellow) Urine Turbidity (Clear) Urine pH (5.0-7.0) Ur Specific [place] (1.003-1.030) Urine Protein (Negative) mg/dL Urine Glucose (UA) (Negative) mg/dL Urine Ketones (Negative) mg/dL Urine Blood (Negative) Urine Nitrite (Negative) Urine Bilirubin (Negative) Urine Urobilinogen (<2.0) mg/dL Ur Leukocyte Esterase (Negative) Urine WBC (Auto) (0.0-6.0) /HPF Urine RBC (Auto) (0.0-6.0) /HPF U Epithel Cells (Auto) (0-13.0) /HPF Urine Bacteria (Auto) (Negative) /HPF Urine Mucus /HPF - Radiology Data Radiology results: report reviewed CT ABDOMEN AND PELVIS WITH CONTRAST INDICATION: Right abdominal pain. Nausea with vomiting. Leukocytosis. COMPARISON: No relevant prior imaging study available. TECHNIQUE: Axial, coronal and sagittal CT imaging of the abdomen and pelvis was performed after injection of 100 cc Omnipaque [address] scans at this location are performed using CT dose reduction for ALARA by means of automated exposure control. FINDINGS: LOWER CHEST: No significant abnormality. LIVER: No significant abnormality. BILIARY: No significant abnormality. PANCREAS: No significant abnormality. SPLEEN: No significant abnormality. ADRENALS: No significant abnormality. KIDNEYS AND URETERS: No significant abnormality. GI TRACT: No significant abnormality of the stomach, small bowel or colon. Unremarkable appendix. PERITONEUM: No free fluid. No free air. No fluid collection. LYMPH NODES: No significant adenopathy. VASCULATURE: No significant abnormality. URINARY BLADDER: No significant abnormality. REPRODUCTIVE ORGANS: No significant abnormality. ADDITIONAL FINDINGS: None. SKELETAL SYSTEM: No significant abnormality. IMPRESSION: No acute abnormality of the abdomen or pelvis. Signer Name: Sean Akbar MD Signed: 08/29/2019 6:53 AM Workstation Name: [id number] Transcribed By: CIRILO Dictated By: Sean Akbar MD Electronically Authenticated By: Sean Akbar MD Signed Date/Time: 08/29/19 0653 - Medical Decision Making Patient is a 18-year-old female presents emergency room with complaints of right sided abdominal pain and right lower back pain that began last night. She states she has not had a bowel movement in approximately 4-5 days. She states she has associated nausea and 2 episodes of vomiting. She denies any diarrhea, fever, urinary symptoms, any other symptoms. She states her last menstrual cycle was 08/14/2019. She denies any past medical history or allergies medications. On exam mild generalized abdominal tenderness to palpation. Initial vitals with tachycardia which improved upon repeat. labs significant for white blood cell count of 14.3. UA without signs of UTI. CT abd pelvis: No acute abnormality of the abdomen or pelvis. Patient given fluids, nausea medication, pain medication which improved her symptoms. Patient given prescription for MiraLAX, Pepcid, Carafate. advised pt to please take medication as prescribed. Increase your water intake over the next several days. Follow- up with a primary care doctor in a GI doctor in the next 2-3 days. Return to the emergency room for any new or worsening symptoms. - Differential Diagnosis diverticulitis, appendicitis, colitis, cholecystitis, constipation Critical care attestation.: If time is entered above; I have spent that time in minutes in the direct care of this critically ill patient, excluding procedure time. ED Disposition Clinical Impression: Abdominal pain Qualifiers: Abdominal location: generalized Qualified Code(s): R10.84 - Generalized abdominal pain Constipation Qualifiers: Constipation type: unspecified constipation type Qualified Code(s): K59.00 - Constipation, unspecified Disposition: - TO HOME OR SELFCARE Is pt being admited?: No Does the pt Need Aspirin: No Condition: Stable Instructions: Constipation (ED), High Fiber Diet (ED), Abdominal Pain (ED) Additional Instructions: Please take medication as prescribed. Increase your water intake over the next several days. Follow-up with a primary care doctor in a GI doctor in the next 2-3 days. Return to the emergency room for any new or worsening symptoms. Prescriptions: Famotidine [Pepcid] 40 mg PO QHS #30 tablet Sucralfate [Carafate] 1 gm PO ACHS #21 tablet Polyethylene Glycol 3350 [Miralax] 7 gm PO DAILY PRN #1 powder PRN Reason: constipation Referrals: ALEXYS DURAN MD [Staff Physician] - 2-3 Days [facility] [Provider Group] - 2-3 Days Forms: Work/School Release Form(ED) Time of Disposition: 07:04 Print Language: PORTUGUESE
[2019-08-29 06:48] VITALS: BP 111/68
--- NOTE | 2019-08-29 06:57 | Cat Scan Report ---
CT ABDOMEN AND PELVIS WITH CONTRAST INDICATION: Right abdominal pain. Nausea with vomiting. Leukocytosis. COMPARISON: No relevant prior imaging study available. TECHNIQUE: Axial, coronal and sagittal CT imaging of the abdomen and pelvis was performed after inje ction of 100 cc Omnipaque [address] scans at this location are performed using CT dose re duction for ALARA by means of automated exposure control. FINDINGS: LOWER CHEST: No significant abnormality. LIVER: No significant abnormality. BILIARY: No significant abnormality. PANCREAS: No significant abnormality. SPLEEN: No significant abnormality. ADRENALS: No significant abnormality. KIDNEYS AND URETERS: No significant abnormality. GI TRACT: No significant abnormality of the stomach, small bowel or colon. Unremarkable appendix. PERITONEUM: No free fluid. No free air. No fluid collection. LYMPH NODES: No significant adenopathy. VASCULATURE: No significant abnormality. URINARY BLADDER: No significant abnormality. REPRODUCTIVE ORGANS: No significant abnormality. ADDITIONAL FINDINGS: None. SKELETAL SYSTEM: No significant abnormality. IMPRESSION: No acute abnormality of the abdomen or pelvis. Signer Name: Sean Akbar MD Signed: 08/29/2019 6:53 AM Workstation Name: [id number]
[2019-08-29] MEDS ORDERED: MAGNESIUM CITRATE 300 ML ORAL LIQD PO ONE (07:03)
== END 2019-08-29 07:33 | disposition home or self-care (01) ==
LOC: ED 03:33
DX: K59.00 Constipation, unspecified (principal); M54.5 Low back pain; R11.2 Nausea with vomiting, unspecified; J45.909 Unspecified asthma, uncomplicated; Z79.899 Other long term (current) drug therapy
CPT/HCPCS: 36415; 74177; 80053; 81001; 84703; 85025; 96361; 96374; 96375; 99284; J2270; J2405; J7030; Q9967

== ENCOUNTER 2019-09-21 16:15 | Emergency (ER) | payer SELFPAY ==
--- NOTE | 2019-09-21 19:33 | Event Note ---
ED Screening Note Date of service: 09/21/19 Time: 19:32 ED Screening Note: 18 y o female with n/v and flank pain x 2 days LMP: 08/01/19 This initial assessment/diagnostic orders/clinical plan/treatment(s) is/are subject to change based on patients health status, clinical progression and re-assessment by fellow clinical providers in the ED. Further treatment and workup at subsequent clinical providers discretion. Patient/guardian urged not to elope from the ED as their condition may be serious if not clinically assessed and managed. Initial orders include: ua,upt
[2019-09-21] MEDS ORDERED: ALUM-MAG HYDROXIDE-SIMETHICONE 200-200-20MG/5ML ORAL LIQD 30 ML PO ONE (21:44)
[2019-09-21] MEDS ORDERED: LIDOCAINE VISCOUS 2% 15 ML ORAL LIQD PO ONE (21:44)
--- NOTE | 2019-09-21 21:54 | Emergency Department Report ---
HPI - General Chief Complaint: Abdominal Pain Time Seen by Provider: 09/21/19 21:37 - HPI HPI: Room 35 The patient is a 18-year-old female presenting with chief complaint of abdominal pain. Patient states for one week she's had intermittent abdominal pain in the midepigastric and left side. Patient describes the pain as a pressure. Patient is to nausea and vomiting. Patient denies dysuria, hematuria or vaginal discharge. The patient states her LMP was 12 days late. The patient states she saw her career resource technician 2 days ago had a pelvic exam and was told her workup was negative. The patient gives her pain a score of 6/10 Location: [See above] Duration: [See above] Quality: [See above] Severity: [See above] Timing: [See above] Context: [See above] Modifying factors: [See above] Associated signs and symptoms: [see above] ED Past Medical Hx - Past Medical History Previous Medical History?: Yes Hx Asthma: Yes Additional medical history: sinus - Surgical History Past Surgical History?: No - Family History Family history: no significant - Social History Smoking Status: Never Smoker Substance Use Type: None (denies illicit drug use) - Medications Home Medications: Home Medications Medication Instructions Recorded Confirmed Last Taken Type Cetirizine HCl [Zyrtec] 10 mg PO DAILY 07/18/13 07/18/13 Unknown History Fluticasone Propionate [Flonase] 2 sprays NS QDAY #1 bottle 09/25/14 Unknown Rx predniSONE [Deltasone] 40 mg PO QDAY #10 tab 04/10/15 Unknown Rx Acetaminophen [Tylenol Arthritis] 650 mg PO Q6HR PRN #30 tablet.er 02/16/18 Unknown Rx Ibuprofen [Motrin] 600 mg PO Q8H PRN #30 tablet 02/16/18 Unknown Rx Ibuprofen [Motrin] 800 mg PO Q8HR PRN #20 tablet 03/17/18 Unknown Rx Ondansetron [Zofran Odt] 4 mg PO Q8HR PRN #10 tab.rapdis 03/17/18 Unknown Rx Dicyclomine [Bentyl] 10 mg PO BID #20 capsule 08/29/18 Unknown Rx Ondansetron [Zofran ODT TAB] 8 mg PO Q12HR #30 tab.rapdis 08/29/18 Unknown Rx Naproxen [Naprosyn] 500 mg PO BID #14 tablet 12/12/18 Unknown Rx 21/Iron Fu/Folic Acid 1 each PO DAILY #30 tablet 11/08/18 Unknown Rx [ Complete Caplet] Acetaminophen [Non-Aspirin Extra 500 mg PO Q6HR PRN #30 tablet 05/17/19 Unknown Rx Strength] Dicyclomine [Bentyl] 10 mg PO QID PRN #20 capsule 05/17/19 Unknown Rx Ibuprofen [Motrin] 600 mg PO Q8H PRN #30 tablet 05/17/19 Unknown Rx Ondansetron [Zofran Odt] 4 mg PO Q8HR #10 tab.rapdis 07/16/19 Unknown Rx Pantoprazole [Protonix] 40 mg PO QDAY #30 tablet 07/16/19 Unknown Rx traMADoL [Ultram] 50 mg PO Q6HR PRN #12 tablet 07/16/19 Unknown Rx Famotidine [Pepcid] 40 mg PO QHS #30 tablet 08/29/19 Unknown Rx Polyethylene Glycol 3350 [Miralax] 7 gm PO DAILY PRN #1 powder 08/29/19 Unknown Rx Sucralfate [Carafate] 1 gm PO ACHS #21 tablet 08/29/19 Unknown Rx Famotidine [Pepcid] 20 mg PO BID #30 tablet 09/22/19 Unknown Rx Ondansetron [Zofran ODT TAB] 8 mg PO Q8HR #20 tab.rapdis 09/22/19 Unknown Rx traMADoL [Ultram] 50 mg PO Q6HR PRN #10 tablet 09/22/19 Unknown Rx ED Review of Systems ROS: Stated complaint: LOW BACK/ABD PX/VOMITING Other details as noted in HPI Constitutional: denies: fever Eyes: denies: eye pain ENT: denies: throat pain Respiratory: no symptoms reported Cardiovascular: denies: chest pain Endocrine: no symptoms reported Gastrointestinal: abdominal pain, nausea, vomiting Genitourinary: abnormal menses. denies: dysuria, hematuria, discharge Musculoskeletal: back pain Neurological: denies: headache Physical Exam - Physical Exam Vital Signs: Vital Signs 09/21/19 19:29 Temperature 98 F Pulse Rate 85 Respiratory 18 Rate Blood Pressure 137/66 O2 Sat by Pulse 100 Oximetry Physical Exam: GENERAL: The patient is well-developed well-nourished female lying on stretcher not appearing to be in acute distress. [] HEENT: Normocephalic. Atraumatic. Extraocular motions are intact. Patient has moist mucous membranes. NECK: Supple. Trachea midline CHEST/LUNGS: Clear to auscultation. There is no respiratory distress noted. HEART/CARDIOVASCULAR: Regular. There is no tachycardia. There is no gallop rub or murmur. ABDOMEN: Abdomen is soft, with mild discomfort to palpation in the suprapubic region and left upper quadrant. Patient has normal bowel sounds. There is no abdominal distention. SKIN: There is no rash. There is no edema. There is no diaphoresis. NEURO: The patient is awake, alert, and oriented. The patient is cooperative. T he patient has normal speech MUSCULOSKELETAL: There is left CVA tenderness. There is no evidence of acute injury. ED Course Vital Signs 09/21/19 19:29 Temperature 98 F Pulse Rate 85 Respiratory 18 Rate Blood Pressure 137/66 O2 Sat by Pulse 100 Oximetry ED Medical Decision Making - Lab Data Result diagrams: 09/21/19 21:49 09/21/19 21:49 Laboratory Tests 09/21/19 09/21/19 09/21/19 19:50 21:49 21:49 WBC 12.5 H RBC 4.16 Hgb 12.2 Hct 36.9 MCV 89 MCH 29 MCHC 33 RDW 13.3 Plt Count 335 Lymph # Senior Planning Analyst Add Manual Diff Complete Total Counted 100 Seg Neuts % (Manual) 54.0 Band Neutrophils % 0 Lymphocytes % (Manual) 40.0 H Reactive Lymphs % (Man) 0 Monocytes % (Manual) 6.0 Eosinophils % (Manual) 0 Basophils % (Manual) 0 Metamyelocytes % 0 Myelocytes % 0 Promyelocytes % 0 Blast Cells % 0 Nucleated RBC % Not Reportable Seg Neutrophils # Man 6.8 Band Neutrophils # 0.0 Lymphocytes # (Manual) 5.0 Abs React Lymphs (Man) 0.0 Monocytes # (Manual) 0.8 Eosinophils # (Manual) 0.0 Basophils # (Manual) 0.0 Metamyelocytes # 0.0 Myelocytes # 0.0 Promyelocytes # 0.0 Blast Cells # 0.0 WBC Morphology Not Reportable Hypersegmented Neuts Not Reportable Hyposegmented Neuts Not Reportable Hypogranular Neuts Not Reportable Smudge Cells Not Reportable Toxic Granulation Not Reportable Toxic Vacuolation Not Reportable Dohle Bodies Not Reportable Pelger-Huet Anomaly Not Reportable Rolf Rods Not Reportable Platelet Estimate Not Reportable Clumped Platelets Not Reportable Plt Clumps, EDTA Not Reportable Large Platelets Not Reportable Giant Platelets Not Reportable Platelet Satelliting Not Reportable Plt Morphology Comment Not Reportable RBC Morphology Normal Dimorphic RBCs Not Reportable Polychromasia Not Reportable Hypochromasia Not Reportable Poikilocytosis Not Reportable Anisocytosis Not Reportable Microcytosis Not Reportable Macrocytosis Not Reportable Spherocytes Not Reportable Pappenheimer Bodies Not Reportable Sickle Cells Not Reportable Target Cells Not Reportable Tear Drop Cells Not Reportable Ovalocytes Not Reportable Helmet Cells Not Reportable Campbell-[place] Bodies Not Reportable Montchanin Rings Not Reportable Ovidio Cells Not Reportable Bite Cells Not Reportable Crenated Cell Not Reportable Elliptocytes Not Reportable Acanthocytes (Spur) Not Reportable Rouleaux Not Reportable Hemoglobin C Crystals Not Reportable Schistocytes Not Reportable Malaria parasites Not Reportable Ambrosio Bodies Not Reportable Hem Pathologist Commnt No Sodium 139 Potassium 4.3 Chloride 101.8 Carbon Dioxide 23 Anion Gap 19 BUN 9 Creatinine 0.6 L Estimated GFR > 60 BUN/Creatinine Ratio 15 Glucose 101 H Calcium 9.9 Total Bilirubin 0.20 AST 17 ALT 10 Alkaline Phosphatase 78 Total Protein 8.0 Albumin 4.4 Albumin/Globulin Ratio 1.2 Lipase HCG, Quant Urine Color Yellow Urine Turbidity Clear Urine pH 6.0 Ur Specific [place] 1.021 Urine Protein <15 mg/dl Urine Glucose (UA) Neg Urine Ketones Neg Urine Blood Neg Urine Nitrite Neg Urine Bilirubin Neg Urine Urobilinogen < 2.0 Ur Leukocyte Esterase Neg Urine WBC (Auto) < 1.0 Urine RBC (Auto) 1.0 U Epithel Cells (Auto) 4.0 Urine Mucus Few 09/21/19 09/21/19 21:49 21:49 WBC RBC Hgb Hct MCV MCH MCHC RDW Plt Count Lymph # Add Manual Diff Total Counted Seg Neuts % (Manual) Band Neutrophils % Lymphocytes % (Manual) Reactive Lymphs % (Man) Monocytes % (Manual) Eosinophils % (Manual) Basophils % (Manual) Metamyelocytes % Myelocytes % Promyelocytes % Blast Cells % Nucleated RBC % Seg Neutrophils # Man Band Neutrophils # Lymphocytes # (Manual) Abs React Lymphs (Man) Monocytes # (Manual) Eosinophils # (Manual) Basophils # (Manual) Metamyelocytes # Myelocytes # Promyelocytes # Blast Cells # WBC Morphology Hypersegmented Neuts Hyposegmented Neuts Hypogranular Neuts Smudge Cells Toxic Granulation Toxic Vacuolation Dohle Bodies Pelger-Huet Anomaly Rolf Rods Platelet Estimate Clumped Platelets Plt Clumps, EDTA Large Platelets Giant Platelets Platelet Satelliting Plt Morphology Comment RBC Morphology Dimorphic RBCs Polychromasia Hypochromasia Poikilocytosis Anisocytosis Microcytosis Macrocytosis Spherocytes Pappenheimer Bodies Sickle Cells Target Cells Tear Drop Cells Ovalocytes Helmet Cells Campbell-[place] Bodies Montchanin Rings Ovidio Cells Bite Cells Crenated Cell Elliptocytes Acanthocytes (Spur) Rouleaux Hemoglobin C Crystals Schistocytes Malaria parasites Ambrosio Bodies Hem Pathologist Commnt Sodium Potassium Chloride Carbon Dioxide Anion Gap BUN Creatinine Estimated GFR BUN/Creatinine Ratio Glucose Calcium Total Bilirubin AST ALT Alkaline Phosphatase Total Protein Albumin Albumin/Globulin Ratio Lipase 14 HCG, Quant < 2 Urine Color Urine Turbidity Urine pH Ur Specific [place] Urine Protein Urine Glucose (UA) Urine Ketones Urine Blood Urine Nitrite Urine Bilirubin Urine Urobilinogen Ur Leukocyte Esterase Urine WBC (Auto) Urine RBC (Auto) U Epithel Cells (Auto) Urine Mucus - Radiology Data Radiology results: report reviewed (CT abdomen and pelvis), image reviewed (CT abdomen and pelvis) [address] [address] Cat Scan Report Signed Patient: DUNIA WATT MR#: [id number] : 2000 Acct:[id number] Age/Sex: 18 / F ADM Date: 09/21/19 Loc: ED Attending Dr: Ordering Physician: PREET DAVIDSON MD Date of Service: 09/21/19 Procedure(s): CT abdomen pelvis w con Accession Number(s): [id number] cc: PREET DAVIDSON MD CT abdomen pelvis w con INDICATION: LEFT sided abdominal an epigastric pain w/ nausea and vomiting. TECHNIQUE: All CT scans at this location are performed using CT dose reduction for ALARA by means of automated exposure control. COMPARISON: 08/29/2019 FINDINGS: Lung bases are clear. Liver, gallbladder, spleen, pancreas, kidneys and adrenals are negative. Abdominal aorta is normal in size. No adenopathy. Pelvis Normal appendix. Uterus and ovaries are negative. Urinary bladder is mostly collapsed but unremarkable. No free fluid or inflammation. No significant bowel abnormalities. No acute skeletal lesions. IMPRESSION: 1. No acute abnormality and no interval change. Signer Name: Sai Kevin MD Signed: 09/22/2019 12:40 AM Workstation Name: [id number] Transcribed By: TM Dictated By: Sai Kevin MD Electronically Authenticated By: Sai Kevin MD Signed Date/Time: 09/22/1939 DD/ TD/TT: - Differential Diagnosis , peptic ulcer disease, pyelonephritis, UTI, Critical care attestation.: If time is entered above; I have spent that time in minutes in the direct care of this critically ill patient, excluding procedure time. ED Disposition Clinical Impression: Abdominal pain Disposition: DC- TO HOME OR SELFCARE Is pt being admited?: No Does the pt Need Aspirin: No Condition: Stable Instructions: Abdominal Pain (ED) Additional Instructions: Return to the emergency department should you develop worsening symptoms, inability to tolerate food or liquids, high fever or any other concerns Prescriptions: Famotidine [Pepcid] 20 mg PO BID #30 tablet traMADoL [Ultram] 50 mg PO Q6HR PRN #10 tablet PRN Reason: Pain Ondansetron [Zofran ODT TAB] 8 mg PO Q8HR #20 tab.rapdis Referrals: [facility] [place] MD SERENE [Primary Care Provider] - 3-5 Days WENDY GEORGE MD [Staff Physician] - 3-5 Days (Dr. George is a associate web developer. Please follow-up with him for further evaluation) Time of Disposition: 00:50
[2019-09-21 22:11] LABS: Bilirubin,Urine NEG (Negative); Blood,Urine NEG (Negative); Color,Urine Yellow (Yellow); Mucus,Urine FEW /HPF; Protein,Urine <15 mg/dL mg/dL (Negative); Urobilinogen,Urine < 2.0 mg/dL (<2.0); WBC,Urine < 1.0 /HPF (0.0-6.0)
[2019-09-21 22:14] LABS: Hematocrit 36.9 % (30.3-42.9); Hemoglobin 12.2 gm/dl (10.1-14.3); Mean Corpuscular HGB Conc 33 % (30-34); Mean Corpuscular Volume 89 fl (79-97); Platelet Count 335 K/mm3 (140-440); Red Blood Count 4.16 M/mm3 (3.65-5.03); Red Cell Distribution Width 13.3 % (13.2-15.2)
[2019-09-21 22:32] LABS: Alanine Aminotransferase 10 units/L (7-56); Albumin 4.4 g/dL (3.9-5); BUN/Creatinine Ratio 15; Blood Urea Nitrogen 9 mg/dL (7-17); Calcium 9.9 mg/dL (8.4-10.2); Hemolysis Index 5
[2019-09-21 22:57] LABS: Basophils % (Manual) 0 % (0.0-1.8); Eosinophils % (Manual) 0 % (0.0-4.3); RBC Morphology Normal; Total Cells Counted 100
--- NOTE | 2019-09-22 00:44 | Cat Scan Report ---
CT abdomen pelvis w con INDICATION: LEFT sided abdominal an epigastric pain w/ nausea and vomiting. TECHNIQUE: All CT scans at this location are performed using CT dose reduction for ALARA by means of automated e xposure control. COMPARISON: 08/29/2019 FINDINGS: Lung bases are clear. Liver, gallbladder, spleen, pancreas, kidneys and adrenals are negative. Abdomi nal aorta is normal in size. No adenopathy. Pelvis Normal appendix. Uterus and ovaries are negative. Urinary bladder is mostly collapsed but unremarkabl e. No free fluid or inflammation. No significant bowel abnormalities. No acute skeletal lesions. IMPRESSION: 1. No acute abnormality and no interval change. Signer Name: Sai Kevin MD Signed: 09/22/2019 12:40 AM Workstation Name: [id number]
[2019-09-22 01:05] VITALS: BP 130/74
== END 2019-09-22 01:01 | disposition home or self-care (01) ==
LOC: ED 16:15
DX: R10.13 Epigastric pain (principal); R11.2 Nausea with vomiting, unspecified; J45.909 Unspecified asthma, uncomplicated; Z79.899 Other long term (current) drug therapy
CPT/HCPCS: 36415; 74177; 80053; 81001; 83690; 84702; 85007; 85025; 99284; Q9967

== ENCOUNTER 2019-11-06 09:35 | Emergency (ER) | payer SELFPAY ==
[2019-11-06 09:50] VITALS: BP 126/77
[2019-11-06] MEDS ORDERED: IBUPROFEN 800 MG TAB PO ONE (11:17)
[2019-11-06] MEDS ORDERED: BENZONATATE 100 MG CAP PO ONE (11:17)
--- NOTE | 2019-11-06 11:49 | XRay Report ---
RIGHT ANKLE 3 VIEWS INDICATION: ankle pain. COMPARISON: None. IMPRESSION: Normal bone mineralization. On the AP view of the foot appears significantly inverted w ith respect to the ankle. Although this may be secondary to positioning, subluxation at the subtalar joint should be considered. The distal tibia and fibula and talar dome are intact and in appropriate alignment. There is no obvious fracture or bone lesion. Please correlate with the patient. Signer Name: Nicolas Lehman Jr, MD Signed: 11/06/2019 11:45 AM Workstation Name: [id number]
--- NOTE | 2019-11-06 11:55 | XRay Report ---
CHEST 2 VIEWS INDICATION: cough. COMPARISON: None FINDINGS: Support devices: None. Heart: Within normal limits. Lungs/pleura: No acute air space or interstitial disease. No pneumothorax. Additional findings: None. IMPRESSION: No acute findings. Signer Name: Nicolas Lehman Jr, MD Signed: 11/06/2019 11:51 AM Workstation Name: [id number]
--- NOTE | 2019-11-06 12:02 | Emergency Department Report ---
Upper Respiratory HPI - HPI Chief Complaint: Sore Throat Stated Complaint: CHEST PAIN,LEG PAIN, THROAT PAIN Time Seen by Provider: 11/06/19 11:05 URI Symptoms: Rhinorrhea: Yes, Sore Throat: Yes, Ear Pain: No, Cough: Yes, Shortness of Breath: No, Sick Contacts: No, Unable to Take Fluids: No, Urine Output Abnormal: No, Listless Behavior: No Other History: This is a 18-year-old female nontoxic, well nourished in [facility], no acute signs of distress presents to the ED with 2 complaints: 1)c/o of productive cough, sore throat, body aches, rhinorrhea, nasal congestion x3 days. Patient describes productive cough as yellow mucus production. Patient denies any sick contacts. Patient denies any recent travels, long car, recent hospital stays. Patient denies any calf pain or calf tenderness. Patient denies any ch est pain, short of breath, fever, chills, nausea, vomiting, hemoptysis, numbness, tingling, headache or stiff neck. 2) c/o of right ankle pain 1 week. Patient denies any trauma. Patient denies any numbness, tingling, fever, chills, nausea, vomiting, chest pain, shortness of breath, headache, stiff neck. Patient denies any joint swelling or joint redness. Patient denies decreased range of motion. Patient stated has decreased gait due to pain. Patient denies any allergies or signifcant PMH. - Home Meds and Allergies Home Medications: Home Medications Medication Instructions Recorded Confirmed Last Taken Cetirizine HCl [Zyrtec] 10 mg PO DAILY 07/18/13 07/18/13 Unknown Previous Rx's Medication Instructions Recorded Last Taken Type Fluticasone Propionate [Flonase] 2 sprays NS QDAY #1 bottle 09/25/14 Unknown Rx predniSONE [Deltasone] 40 mg PO QDAY #10 tab 04/10/15 Unknown Rx Acetaminophen [Tylenol Arthritis] 650 mg PO Q6HR PRN #30 tablet.er 02/16/18 Unknown Rx Ibuprofen [Motrin] 600 mg PO Q8H PRN #30 tablet 02/16/18 Unknown Rx Ibuprofen [Motrin] 800 mg PO Q8HR PRN #20 tablet 03/17/18 Unknown Rx Ondansetron [Zofran Odt] 4 mg PO Q8HR PRN #10 tab.rapdis 03/17/18 Unknown Rx Dicyclomine [Bentyl] 10 mg PO BID #20 capsule 08/29/18 Unknown Rx Ondansetron [Zofran ODT TAB] 8 mg PO Q12HR #30 tab.rapdis 08/29/18 Unknown Rx Naproxen [Naprosyn] 500 mg PO BID #14 tablet 08/31/18 Unknown Rx 21/Iron Fu/Folic Acid 1 each PO DAILY #30 tablet 11/08/18 Unknown Rx [ Complete Caplet] Acetaminophen [Non-Aspirin Extra 500 mg PO Q6HR PRN #30 tablet 05/17/19 Unknown Rx Strength] Dicyclomine [Bentyl] 10 mg PO QID PRN #20 capsule 05/17/19 Unknown Rx Ibuprofen [Motrin] 600 mg PO Q8H PRN #30 tablet 05/17/19 Unknown Rx Ondansetron [Zofran Odt] 4 mg PO Q8HR #10 tab.rapdis 07/16/19 Unknown Rx Pantoprazole [Protonix] 40 mg PO QDAY #30 tablet 07/16/19 Unknown Rx traMADoL [Ultram] 50 mg PO Q6HR PRN #12 tablet 07/16/19 Unknown Rx Famotidine [Pepcid] 40 mg PO QHS #30 tablet 08/29/19 Unknown Rx Polyethylene Glycol 3350 [Miralax] 7 gm PO DAILY PRN #1 powder 08/29/19 Unknown Rx Sucralfate [Carafate] 1 gm PO ACHS #21 tablet 08/29/19 Unknown Rx Famotidine [Pepcid] 20 mg PO BID #30 tablet 09/22/19 Unknown Rx Ondansetron [Zofran ODT TAB] 8 mg PO Q8HR #20 tab.rapdis 09/22/19 Unknown Rx traMADoL [Ultram] 50 mg PO Q6HR PRN #10 tablet 09/22/19 Unknown Rx Azithromycin [Zithromax Z-NELLI] 250 mg PO DAILY #6 tablet 11/06/19 Unknown Rx Benzonatate [Tessalon Perles] 100 mg PO Q8HR PRN #20 capsule 11/06/19 Unknown Rx Ibuprofen [Motrin] 600 mg PO Q8H PRN #20 tablet 11/06/19 Unknown Rx Allergies/Adverse Reactions: Allergies Allergy/AdvReac Type Severity Reaction Status Date / Time No Known Allergies Allergy Verified 09/24/14 20:10 ED Review of Systems ROS: Stated complaint: CHEST PAIN,LEG PAIN, THROAT PAIN Other details as noted in HPI Constitutional: denies: chills, fever Eyes: denies: eye pain, eye discharge, vision change ENT: throat pain, congestion. denies: ear pain Respiratory: cough. denies: shortness of breath, wheezing Cardiovascular: denies: chest pain, palpitations Endocrine: no symptoms reported Gastrointestinal: denies: abdominal pain, nausea, diarrhea Genitourinary: denies: urgency, dysuria, discharge Musculoskeletal: denies: back pain, joint swelling, arthralgia Skin: denies: rash, lesions Neurological: denies: headache, weakness, paresthesias Psychiatric: denies: anxiety, depression Hematological/Lymphatic: denies: easy bleeding, easy bruising ED Past Medical Hx - Past Medical History Previous Medical History?: Yes Hx Asthma: Yes Additional medical history: sinus - Surgical History Past Surgical History?: No - Social History Smoking Status: Never Smoker Substance Use Type: None - Medications Home Medications: Home Medications Medication Instructions Recorded Confirmed Last Taken Type Cetirizine HCl [Zyrtec] 10 mg PO DAILY 07/18/13 07/18/13 Unknown History Fluticasone Propionate [Flonase] 2 sprays NS QDAY #1 bottle 09/25/14 Unknown Rx predniSONE [Deltasone] 40 mg PO QDAY #10 tab 04/10/15 Unknown Rx Acetaminophen [Tylenol Arthritis] 650 mg PO Q6HR PRN #30 tablet.er 02/16/18 Unknown Rx Ibuprofen [Motrin] 600 mg PO Q8H PRN #30 tablet 02/16/18 Unknown Rx Ibuprofen [Motrin] 800 mg PO Q8HR PRN #20 tablet 03/17/18 Unknown Rx Ondansetron [Zofran Odt] 4 mg PO Q8HR PRN #10 tab.rapdis 03/17/18 Unknown Rx Dicyclomine [Bentyl] 10 mg PO BID #20 capsule 08/29/18 Unknown Rx Ondansetron [Zofran ODT TAB] 8 mg PO Q12HR #30 tab.rapdis 08/29/18 Unknown Rx Naproxen [Naprosyn] 500 mg PO BID #14 tablet 12/12/18 Unknown Rx 21/Iron Fu/Folic Acid 1 each PO DAILY #30 tablet 11/08/18 Unknown Rx [ Complete Caplet] Acetaminophen [Non-Aspirin Extra 500 mg PO Q6HR PRN #30 tablet 05/17/19 Unknown Rx Strength] Dicyclomine [Bentyl] 10 mg PO QID PRN #20 capsule 05/17/19 Unknown Rx Ibuprofen [Motrin] 600 mg PO Q8H PRN #30 tablet 05/17/19 Unknown Rx Ondansetron [Zofran Odt] 4 mg PO Q8HR #10 tab.rapdis 07/16/19 Unknown Rx Pantoprazole [Protonix] 40 mg PO QDAY #30 tablet 07/16/19 Unknown Rx traMADoL [Ultram] 50 mg PO Q6HR PRN #12 tablet 07/16/19 Unknown Rx Famotidine [Pepcid] 40 mg PO QHS #30 tablet 08/29/19 Unknown Rx Polyethylene Glycol 3350 [Miralax] 7 gm PO DAILY PRN #1 powder 08/29/19 Unknown Rx Sucralfate [Carafate] 1 gm PO ACHS #21 tablet 08/29/19 Unknown Rx Famotidine [Pepcid] 20 mg PO BID #30 tablet 09/22/19 Unknown Rx Ondansetron [Zofran ODT TAB] 8 mg PO Q8HR #20 tab.rapdis 09/22/19 Unknown Rx traMADoL [Ultram] 50 mg PO Q6HR PRN #10 tablet 09/22/19 Unknown Rx Azithromycin [Zithromax Z-NELLI] 250 mg PO DAILY #6 tablet 11/06/19 Unknown Rx Benzonatate [Tessalon Perles] 100 mg PO Q8HR PRN #20 capsule 11/06/19 Unknown Rx Ibuprofen [Motrin] 600 mg PO Q8H PRN #20 tablet 11/06/19 Unknown Rx ED Bronchiolitis Physical Exam - Exam General: Vital signs noted. No distress. Alert and acting appropriately. Neurologic: Alert and oriented, no deficits. Musculoskeletal: Unremarkable. ED Bronchiolitis Tests - Testing Testing: CXR: Normal/Negative ED Physical Exam - General Limitations: No Limitations General appearance: alert, in no apparent distress - Head Head exam: Present: atraumatic, normocephalic - Eye Eye exam: Present: normal appearance - Expanded ENT Exam Expanded Ear exam: Present: normal external inspection Mouth exam: Present: normal external inspection. Absent: drooling, trismus, muffled voice Teeth exam: Present: normal inspection Throat exam: Positive: tonsillar erythema, other (uvula midline). Negative: tonsillomegaly, tonsillar exudate, R peritonsillar mass, L peritonsillar mass - Neck Neck exam: Present: normal inspection, full ROM. Absent: tenderness, meningismus, lymphadenopathy - Respiratory Respiratory exam: Present: normal lung sounds bilaterally. Absent: respiratory distress, wheezes, rales, rhonchi, stridor, chest wall tenderness, accessory muscle use, decreased breath sounds, prolonged expiratory - Cardiovascular Cardiovascular Exam: Present: regular rate, normal rhythm, normal heart sounds. Absent: bradycardia, tachycardia, irregular rhythm, systolic murmur, diastolic murmur, rubs, gallop - GI/Abdominal GI/Abdominal exam: Present: soft, normal bowel sounds. Absent: distended, tenderness, guarding, rebound, rigid, diminished bowel sounds - Extremities Exam Extremities exam: Present: normal inspection, full ROM, tenderness, normal capillary refill. Absent: joint swelling - Expanded Lower Extremity Exam Right Hip exam: Present: normal inspection, full ROM. Absent: tenderness, swelling Upper Leg exam: Present: normal inspection, full ROM. Absent: tenderness, swelling Knee exam: Present: normal inspection, full ROM. Absent: tenderness, swelling Lower Leg exam: Present: normal inspection, full ROM. Absent: tenderness, swelling Ankle exam: Present: normal inspection, full ROM, tenderness. Absent: swelling, abrasion, laceration, ecchymosis, deformity, crepidus, dislocation, erythema, anterior draw sign Foot/Toe exam: Present: normal inspection, full ROM. Absent: tenderness, swelling Neuro vascular tendon exam: Present: no vascular compromise Gait: Positive: observed and limited by pain - Back Exam Back exam: Present: normal inspection, full ROM. Absent: tenderness, CVA tenderness (R), CVA tenderness (L), muscle spasm, paraspinal tenderness, vertebral tenderness, rash noted - Neurological Exam Neurological exam: Present: alert, oriented X3, normal gait - Psychiatric Psychiatric exam: Present: normal affect, normal mood - Skin Skin exam: Present: warm, dry, intact, normal color. Absent: rash ED Course Vital Signs 11/06/19 09:49 Temperature 98.2 F Pulse Rate 82 Respiratory 22 Rate Blood Pressure 126/77 O2 Sat by Pulse 100 Oximetry - Reevaluation(s) Reevaluation #1: 11/06/19 12:18 Patient is speaking in full sentences with no signs of distress noted. ED Medical Decision Making - Medical Decision Making This is a 18-year-old female that presents with right ankle strain, bronchitis, and pharyngitis. Patient is stable and was examined by me. I referred patient to an orthopedic doctor for further evaluation for possible MRI. X-rays has been obtained and dictated by the radiologist. Patient is notified of the x-ray report with noted by the patient. Patient does have normal gait with no tenderness and no joint swelling. No ecchymosis. no joint redness or swelling. Not warm to touch. No signs of cellulites present. Patient was instructed to increase hydration, rest and take Motrin for fever episodes. Vitals stable. Patient is nonfebrile and normal heart rate. Patient was instructed to RICE therapy. Patient is discharged with Motrin. At time of discharge, the patient does not seem toxic or ill in appearance. No acute signs of distress noted. Patient agrees to discharge treatment plan of care. No further questions noted by the patient. Critical care attestation.: If time is entered above; I have spent that time in minutes in the direct care of this critically ill patient, excluding procedure time. ED Disposition Clinical Impression: Bronchitis Right ankle sprain Qualifiers: Encounter type: initial encounter Pharyngitis Qualifiers: Pharyngitis/tonsillitis etiology: unspecified etiology Qualified Code(s): J02.9 - Acute pharyngitis, unspecified Disposition: DC-01 TO HOME OR SELFCARE Is pt being admited?: No Does the pt Need Aspirin: No Condition: Stable Instructions: Acute Bronchitis (ED), Ankle Sprain (ED), RICE Therapy (ED) Additional Instructions: Follow-up with a primary care and orthopedic doctor in 3-5 days or if symptoms w orsen and continue return to emergency room as soon as possible. Prescriptions: Ibuprofen [Motrin] 600 mg PO Q8H PRN #20 tablet PRN Reason: Pain Benzonatate [Tessalon Perles] 100 mg PO Q8HR PRN #20 capsule PRN Reason: Cough Azithromycin [Zithromax Z-NELLI] 250 mg PO DAILY #6 tablet Referrals: PRIMARY CAREMD [Primary Care Provider] - 3-5 Days ALEXYS DURAN MD [Staff Physician] - 3-5 Days [facility] [Outside] - 3-5 Days Forms: Work/School Release Form(ED)
== END 2019-11-06 13:05 | disposition home or self-care (01) ==
LOC: ED 09:35
DX: J40 Bronchitis, not specified as acute or chronic (principal); S93.401A Sprain of unspecified ligament of right ankle, initial encounter; X58.XXXA Exposure to other specified factors, initial encounter; Y93.89 Activity, other specified; Y92.89 Other specified places as the place of occurrence of the external cause; Y99.8 Other external cause status
CPT/HCPCS: 71046; 99283

== ENCOUNTER 2019-11-21 18:52 | Emergency (ER) | payer SELFPAY ==
--- NOTE | 2019-11-21 19:31 | Emergency Department Report ---
Blank Doc - Documentation Documentation: 18-year-old female that presents with vaginal bleeding and pelvic pain. Denies . This initial assessment/diagnostic orders/clinical plan/treatment(s) is/are subject to change based on patient's health status, clinical progression and re- assessment by fellow clinical providers in the ED. Further treatment and workup at subsequent clinical providers discretion. Patient/guardians urged not to elope from the ED as their condition may be serious if not clinically assessed and managed. Initial orders include: 1- Patient sent to [facility] for further evaluation and treatment 2- labs 3- UA
[2019-11-21 19:34] VITALS: BP 117/57
[2019-11-21 20:29] LABS: Basophils # (Auto) 0.1 K/mm3 (0.0-0.1); Eosinophils # (Auto) 0.1 K/mm3 (0.0-0.4); Eosinophils % (Auto) 0.6 % (0.0-4.3); Hematocrit 36.6 % (30.3-42.9); Lymphocytes % (Auto) 37.9 % (13.4-35.0); Mean Corpuscular HGB Conc 33 % (30-34); Mean Corpuscular Volume 88 fl (79-97); Monocytes # (Auto) 0.7 K/mm3 (0.0-0.8); Monocytes % (Auto) 6.5 % (0.0-7.3); Platelet Count 327 K/mm3 (140-440); Red Blood Count 4.14 M/mm3 (3.65-5.03); Red Cell Distribution Width 13.5 % (13.2-15.2)
[2019-11-21 20:49] LABS: BUN/Creatinine Ratio 13; Blood Urea Nitrogen 8 mg/dL (7-17); Calcium 9.3 mg/dL (8.4-10.2); Hemolysis Index 11
[2019-11-21] MEDS ORDERED: IBUPROFEN 600 MG TAB PO ONE (21:09)
[2019-11-22 01:11] LABS: Bilirubin,Urine NEG (Negative); Blood,Urine LG (Negative); Calcium Oxalate Crystals,Urine FEW; Color,Urine Amber (Yellow)
[2019-11-22 01:12] LABS: Bacteria,Urine 1+ /HPF (Negative); Mucus,Urine 1+ /HPF
[2019-11-22] MEDS ORDERED: KETOROLAC 30 MG/1 ML INJ IM ONE (01:33)
[2019-11-22] MEDS ORDERED: LIDOCAINE-MPF (1%) 10 MG/1 ML VIAL 5 ML INFILTRATI ONE (01:33)
[2019-11-22] MEDS ORDERED: oxyCODONE /ACETAMINOPHEN 5-325MG TAB PO ONE (01:33)
[2019-11-22] MEDS ORDERED: ONDANSETRON 4 MG ODT TAB PO ONE (01:33)
--- NOTE | 2019-11-22 01:33 | Emergency Department Report ---
ED Female HPI - General Chief complaint: Abdominal Pain Stated complaint: LIGHT BLEEDING/BAD PAIN Time Seen by Provider: 11/21/19 19:30 Source: patient Mode of arrival: Ambulatory Limitations: No Limitations - History of Present Illness Initial comments: Patient is a A0 18-year-old -[place] female with no past medical history except morbid obesity who presents to the ED with complaint of acute onset persistent severe suprapubic pain with dysuria, urinary frequency and urgency and vaginal discharge for the last 5 days. Patient denies vaginal bleeding, dizziness, chest pain, shortness of breath, dyspareunia, low back pain, diarrhea, nausea and vomiting. MD Complaint: dysuria, pelvic pain, other (Urinary frequency and urgency) -: Sudden, days(s) (5) Location: suprapubic Radiation: non-radiating Severity: severe Severity scale (0 -10): 8 Quality: sharp, crushing Consistency: constant Improves with: none Worsens with: none Are you Now?: No Associated Symptoms: denies other symptoms, abdominal pain, dysuria. denies: vaginal discharge, vaginal bleeding, nausea/vomiting, fever/chills, headaches, loss of appetite, hematuria, rash, seizure, shortness of breath, syncope, weakness - Related Data Sexually active: Yes : 1 Para: 1 A: 0 Home Medications Medication Instructions Recorded Confirmed Last Taken Cetirizine HCl [Zyrtec] 10 mg PO DAILY 07/18/13 07/18/13 Unknown Previous Rx's Medication Instructions Recorded Last Taken Type Fluticasone Propionate [Flonase] 2 sprays NS QDAY #1 bottle 09/25/14 Unknown Rx predniSONE [Deltasone] 40 mg PO QDAY #10 tab 04/10/15 Unknown Rx Acetaminophen [Tylenol Arthritis] 650 mg PO Q6HR PRN #30 tablet.er 02/16/18 Unknown Rx Ibuprofen [Motrin] 600 mg PO Q8H PRN #30 tablet 02/16/18 Unknown Rx Ondansetron [Zofran Odt] 4 mg PO Q8HR PRN #10 tab.rapdis 03/17/18 Unknown Rx Dicyclomine [Bentyl] 10 mg PO BID #20 capsule 08/29/18 Unknown Rx Ondansetron [Zofran ODT TAB] 8 mg PO Q12HR #30 tab.rapdis 08/29/18 Unknown Rx Naproxen [Naprosyn] 500 mg PO BID #14 tablet 08/31/18 Unknown Rx 21/Iron Fu/Folic Acid 1 each PO DAILY #30 tablet 11/08/18 Unknown Rx [ Complete Caplet] Acetaminophen [Non-Aspirin Extra 500 mg PO Q6HR PRN #30 tablet 05/17/19 Unknown Rx Strength] Dicyclomine [Bentyl] 10 mg PO QID PRN #20 capsule 05/17/19 Unknown Rx Ibuprofen [Motrin] 600 mg PO Q8H PRN #30 tablet 05/17/19 Unknown Rx Pantoprazole [Protonix] 40 mg PO QDAY #30 tablet 07/16/19 Unknown Rx traMADoL [Ultram] 50 mg PO Q6HR PRN #12 tablet 07/16/19 Unknown Rx Famotidine [Pepcid] 40 mg PO QHS #30 tablet 08/29/19 Unknown Rx Polyethylene Glycol 3350 [Miralax] 7 gm PO DAILY PRN #1 powder 08/29/19 Unknown Rx Sucralfate [Carafate] 1 gm PO ACHS #21 tablet 08/29/19 Unknown Rx Famotidine [Pepcid] 20 mg PO BID #30 tablet 09/22/19 Unknown Rx Ondansetron [Zofran ODT TAB] 8 mg PO Q8HR #20 tab.rapdis 09/22/19 Unknown Rx Azithromycin [Zithromax Z-NELLI] 250 mg PO DAILY #6 tablet 11/06/19 Unknown Rx Benzonatate [Tessalon Perles] 100 mg PO Q8HR PRN #20 capsule 11/06/19 Unknown Rx Ibuprofen [Motrin] 600 mg PO Q8H PRN #20 tablet 11/06/19 Unknown Rx Fluconazole [Diflucan TAB] 150 mg PO ONCE #1 tablet 11/22/19 Unknown Rx Ibuprofen [Motrin 800 MG tab] 800 mg PO Q8HR PRN #24 tablet 11/22/19 Unknown Rx Ondansetron [Zofran ODT TAB] 4 mg PO Q6HR PRN #15 tab.rapdis 11/22/19 Unknown Rx cephALEXin [Keflex] 500 mg PO Q6HR #40 capsule 11/22/19 Unknown Rx metroNIDAZOLE [Flagyl] 500 mg PO Q12HR #14 tab 11/22/19 Unknown Rx traMADoL [Ultram 50 MG tab] 50 mg PO Q6HR PRN #10 tablet 11/22/19 Unknown Rx Allergies Allergy/AdvReac Type Severity Reaction Status Date / Time No Known Allergies Allergy Verified 09/24/14 20:10 ED Review of Systems ROS: Stated complaint: LIGHT BLEEDING/BAD PAIN Other details as noted in HPI Constitutional: denies: chills, fever Eyes: denies: eye pain, eye discharge, vision change ENT: denies: ear pain, throat pain Respiratory: denies: cough, shortness of breath, wheezing Cardiovascular: denies: chest pain, palpitations Endocrine: no symptoms reported Gastrointestinal: abdominal pain (suprapubic). denies: nausea, diarrhea Genitourinary: urgency, dysuria, frequency. denies: discharge Musculoskeletal: denies: back pain, joint swelling, arthralgia Skin: denies: rash, lesions Neurological: denies: headache, weakness, paresthesias Psychiatric: denies: anxiety, depression Hematological/Lymphatic: denies: easy bleeding, easy bruising ED Past Medical Hx - Past Medical History Previous Medical History?: Yes Hx Asthma: Yes Additional medical history: sinus - Surgical History Past Surgical History?: No - Social History Smoking Status: Never Smoker Substance Use Type: None - Medications Home Medications: Home Medications Medication Instructions Recorded Confirmed Last Taken Type Cetirizine HCl [Zyrtec] 10 mg PO DAILY 07/18/13 07/18/13 Unknown History Fluticasone Propionate [Flonase] 2 sprays NS QDAY #1 bottle 09/25/14 Unknown Rx predniSONE [Deltasone] 40 mg PO QDAY #10 tab 04/10/15 Unknown Rx Acetaminophen [Tylenol Arthritis] 650 mg PO Q6HR PRN #30 tablet.er 02/16/18 Unknown Rx Ibuprofen [Motrin] 600 mg PO Q8H PRN #30 tablet 02/16/18 Unknown Rx Ondansetron [Zofran Odt] 4 mg PO Q8HR PRN #10 tab.rapdis 03/17/18 Unknown Rx Dicyclomine [Bentyl] 10 mg PO BID #20 capsule 08/29/18 Unknown Rx Ondansetron [Zofran ODT TAB] 8 mg PO Q12HR #30 tab.rapdis 08/29/18 Unknown Rx Naproxen [Naprosyn] 500 mg PO BID #14 tablet 08/31/18 Unknown Rx 21/Iron Fu/Folic Acid 1 each PO DAILY #30 tablet 11/08/18 Unknown Rx [ Complete Caplet] Acetaminophen [Non-Aspirin Extra 500 mg PO Q6HR PRN #30 tablet 05/17/19 Unknown Rx Strength] Dicyclomine [Bentyl] 10 mg PO QID PRN #20 capsule 05/17/19 Unknown Rx Ibuprofen [Motrin] 600 mg PO Q8H PRN #30 tablet 05/17/19 Unknown Rx Pantoprazole [Protonix] 40 mg PO QDAY #30 tablet 07/16/19 Unknown Rx traMADoL [Ultram] 50 mg PO Q6HR PRN #12 tablet 07/16/19 Unknown Rx Famotidine [Pepcid] 40 mg PO QHS #30 tablet 08/29/19 Unknown Rx Polyethylene Glycol 3350 [Miralax] 7 gm PO DAILY PRN #1 powder 08/29/19 Unknown Rx Sucralfate [Carafate] 1 gm PO ACHS #21 tablet 08/29/19 Unknown Rx Famotidine [Pepcid] 20 mg PO BID #30 tablet 09/22/19 Unknown Rx Ondansetron [Zofran ODT TAB] 8 mg PO Q8HR #20 tab.rapdis 09/22/19 Unknown Rx Azithromycin [Zithromax Z-NELLI] 250 mg PO DAILY #6 tablet 11/06/19 Unknown Rx Benzonatate [Tessalon Perles] 100 mg PO Q8HR PRN #20 capsule 11/06/19 Unknown Rx Ibuprofen [Motrin] 600 mg PO Q8H PRN #20 tablet 11/06/19 Unknown Rx Fluconazole [Diflucan TAB] 150 mg PO ONCE #1 tablet 11/22/19 Unknown Rx Ibuprofen [Motrin 800 MG tab] 800 mg PO Q8HR PRN #24 tablet 11/22/19 Unknown Rx Ondansetron [Zofran ODT TAB] 4 mg PO Q6HR PRN #15 tab.rapdis 11/22/19 Unknown Rx cephALEXin [Keflex] 500 mg PO Q6HR #40 capsule 11/22/19 Unknown Rx metroNIDAZOLE [Flagyl] 500 mg PO Q12HR #14 tab 11/22/19 Unknown Rx traMADoL [Ultram 50 MG tab] 50 mg PO Q6HR PRN #10 tablet 11/22/19 Unknown Rx ED Physical Exam - General Limitations: No Limitations General appearance: alert, in no apparent distress - Head Head exam: Present: atraumatic, normocephalic, normal inspection - Eye Eye exam: Present: normal appearance, PERRL, EOMI Pupils: Present: normal accommodation - ENT ENT exam: Present: normal exam, normal orophraynx, mucous membranes moist, TM's normal bilaterally, normal external ear exam - Neck Neck exam: Present: normal inspection, full ROM - Respiratory Respiratory exam: Present: normal lung sounds bilaterally. Absent: respiratory distress, wheezes, rales, rhonchi, stridor, decreased breath sounds, prolonged expiratory - Cardiovascular Cardiovascular Exam: Present: regular rate, normal rhythm, normal heart sounds. Absent: systolic murmur, diastolic murmur, rubs, gallop - GI/Abdominal GI/Abdominal exam: Present: soft, tenderness (suprapubic, mildly), normal bowel sounds. Absent: guarding, rebound, hyperactive bowel sounds, hypoactive bowel sounds, organomegaly - Bi-manual exam: Present: other (Pelvic exam deferred; patient declined) - Extremities Exam Extremities exam: Present: normal inspection, full ROM, normal capillary refill - Back Exam Back exam: Present: normal inspection, full ROM. Absent: tenderness, CVA tenderness (R), CVA tenderness (L), muscle spasm, paraspinal tenderness, vertebral tenderness - Neurological Exam Neurological exam: Present: alert, oriented X3, CN II-XII intact, normal gait, reflexes normal - Psychiatric Psychiatric exam: Present: normal affect, normal mood - Skin Skin exam: Present: warm, dry, intact, normal color. Absent: rash ED Course Vital Signs 11/21/19 19:30 Temperature 98.7 F Pulse Rate 79 Respiratory 18 Rate Blood Pressure 117/57 O2 Sat by Pulse 100 Oximetry ED Medical Decision Making - Lab Data Result diagrams: 11/21/19 20:15 11/21/19 20:15 - Medical Decision Making This is a 18-year-old A0 female with a history of morbid obesity presented to the ED with dysuria, urinary frequency and urgency and suprapubic pain for 5 days worse in the last 2 days. In the ED, patient is alert and oriented x3 and is not in distress but appears to be in pain. Patient was treated for pain in the ED and urinalysis shows significant urinary tract infection. The rest of the lab test results were unremarkable. Wet prep showed significant Gardnerella vaginalis consistent with bacterial vaginosis. Patient was discharged home on antibiotics and pain medications and advised to follow-up with her primary care physician in 7 to 10 days for reevaluation or return to the ED immediately if symptoms get worse. - Differential Diagnosis UTI; Bacterial vaginosis; Trichomonas; STD; Ovarian cyst Critical care attestation.: If time is entered above; I have spent that time in minutes in the direct care of this critically ill patient, excluding procedure time. ED Disposition Clinical Impression: Acute urinary tract infection, Acute suprapubic pain, Bacterial vaginosis Disposition: TO HOME OR SELFCARE Is pt being admited?: No Does the pt Need Aspirin: No Condition: Stable Instructions: Abdominal Pain (ED), Bacterial Vaginosis (ED) Additional Instructions: Your symptoms are consistent with acute urinary tract infection which appear to be significant. Therefore take medications as advised with food, drink plenty of fluids and follow-up with your primary care physician in 7 to 10 days for reevaluation. Return to the ED immediately if symptoms get worse. Prescriptions: Fluconazole [Diflucan TAB] 150 mg PO ONCE #1 tablet metroNIDAZOLE [Flagyl] 500 mg PO Q12HR #14 tab cephALEXin [Keflex] 500 mg PO Q6HR #40 capsule Ibuprofen [Motrin 800 MG tab] 800 mg PO Q8HR PRN #24 tablet PRN Reason: Pain traMADoL [Ultram 50 MG tab] 50 mg PO Q6HR PRN #10 tablet PRN Reason: Pain Ondansetron [Zofran ODT TAB] 4 mg PO Q6HR PRN #15 tab.rapdis PRN Reason: Nausea Referrals: [facility] [Outside] - 3-5 Days Forms: STI Treatment and Prevention Time of Disposition: : Print Language: ETHIOPIAN
== END 2019-11-22 02:00 | disposition home or self-care (01) ==
LOC: ED 18:52
DX: N39.0 Urinary tract infection, site not specified (principal); N76.0 Acute vaginitis; B96.89 Other specified bacterial agents as the cause of diseases classified elsewhere; J45.909 Unspecified asthma, uncomplicated; Z79.1 Long term (current) use of non-steroidal anti-inflammatories (NSAID); Z79.899 Other long term (current) drug therapy
CPT/HCPCS: 36415; 80048; 81001; 84702; 85025; 87210; 96372; 99284; J0696; J1885; Q0162

== ENCOUNTER 2020-05-19 21:09 | Emergency (ER) | payer SELFPAY ==
[2020-05-19 21:53] LABS: HCG Qualitative,Urine Negative (Negative)
[2020-05-19 21:56] LABS: Bilirubin,Urine NEG (Negative); Blood,Urine NEG (Negative); Color,Urine Yellow (Yellow); Mucus,Urine 1+ /HPF
[2020-05-19] MEDS ORDERED: SODIUM CHLORIDE 0.9% 1000 ML 1,000 ML IV ONE (22:31)
[2020-05-19] MEDS ORDERED: ONDANSETRON 4 MG/2 ML INJ IV ONE (22:31)
[2020-05-19] MEDS ORDERED: MORPHINE 4 MG/1 ML INJ IV ONE (22:31)
--- NOTE | 2020-05-19 22:36 | Emergency Department Report ---
ED Abdominal Pain HPI - General Chief Complaint: Abdominal Pain Stated Complaint: ABD PAIN Time Seen by Provider: 05/19/20 21:43 Source: patient Mode of arrival: Ambulatory Limitations: No Limitations - History of Present Illness Initial Comments: 19-year-old -[place] female patient without prior medical history presents with complaints of mid lower abdominal pain x2 weeks. She also reports some nausea and vomiting that started Wednesday and has been daily since. Patient denies any hematemesis/coffee-ground emesis, diarrhea/constipation/hemat ochezia/melena, urinary symptoms, vaginal discharge, prior abdominal surgeries, or fever/chills/sweats. She rates her current pain is 8/10 in severity and denies worsening of pain with food intake. Patient describes her pain as stabbing and aching and states it has become constant since its onset. She also states she was seen by her SKIP OPERATOR last week and had a pelvic exam and was negative for STIs. -: Gradual - Related Data Home Medications Medication Instructions Recorded Confirmed Last Taken Cetirizine HCl [Zyrtec] 10 mg PO DAILY 07/18/13 07/18/13 Unknown Previous Rx's Medication Instructions Recorded Last Taken Type Fluticasone Propionate [Flonase] 2 sprays NS QDAY #1 bottle 09/25/14 Unknown Rx predniSONE [Deltasone] 40 mg PO QDAY #10 tab 04/10/15 Unknown Rx Acetaminophen [Tylenol Arthritis] 650 mg PO Q6HR PRN #30 tablet.er 02/16/18 Unknown Rx Ibuprofen [Motrin] 600 mg PO Q8H PRN #30 tablet 02/16/18 Unknown Rx Ondansetron [Zofran Odt] 4 mg PO Q8HR PRN #10 tab.rapdis 03/17/18 Unknown Rx Dicyclomine [Bentyl] 10 mg PO BID #20 capsule 08/29/18 Unknown Rx Ondansetron [Zofran ODT TAB] 8 mg PO Q12HR #30 tab.rapdis 08/29/18 Unknown Rx Naproxen [Naprosyn] 500 mg PO BID #14 tablet 08/31/18 Unknown Rx 21/Iron Fu/Folic Acid 1 each PO DAILY #30 tablet 11/08/18 Unknown Rx [ Complete Caplet] Acetaminophen [Non-Aspirin Extra 500 mg PO Q6HR PRN #30 tablet 05/17/19 Unknown Rx Strength] Dicyclomine [Bentyl] 10 mg PO QID PRN #20 capsule 05/17/19 Unknown Rx Ibuprofen [Motrin] 600 mg PO Q8H PRN #30 tablet 05/17/19 Unknown Rx Pantoprazole [Protonix] 40 mg PO QDAY #30 tablet 07/16/19 Unknown Rx Famotidine [Pepcid] 40 mg PO QHS #30 tablet 08/29/19 Unknown Rx Polyethylene Glycol 3350 [Miralax] 7 gm PO DAILY PRN #1 powder 08/29/19 Unknown Rx Sucralfate [Carafate] 1 gm PO ACHS #21 tablet 08/29/19 Unknown Rx Famotidine [Pepcid] 20 mg PO BID #30 tablet 09/22/19 Unknown Rx Ondansetron [Zofran ODT TAB] 8 mg PO Q8HR #20 tab.rapdis 09/22/19 Unknown Rx Azithromycin [Zithromax Z-NELLI] 250 mg PO DAILY #6 tablet 11/06/19 Unknown Rx Benzonatate [Tessalon Perles] 100 mg PO Q8HR PRN #20 capsule 11/06/19 Unknown Rx Ibuprofen [Motrin] 600 mg PO Q8H PRN #20 tablet 11/06/19 Unknown Rx Fluconazole (Nf) [Diflucan TAB] 150 mg PO ONCE #1 tablet 11/22/19 Unknown Rx Ibuprofen [Motrin 800 MG tab] 800 mg PO Q8HR PRN #24 tablet 11/22/19 Unknown Rx Ondansetron [Zofran ODT TAB] 4 mg PO Q6HR PRN #15 tab.rapdis 11/22/19 Unknown Rx cephALEXin [Keflex] 500 mg PO Q6HR #40 capsule 11/22/19 Unknown Rx metroNIDAZOLE [Flagyl] 500 mg PO Q12HR #14 tab 11/22/19 Unknown Rx traMADoL [Ultram 50 MG tab] 50 mg PO Q6HR PRN #10 tablet 11/22/19 Unknown Rx Ibuprofen [Motrin 800 MG tab] 800 mg PO Q8HR PRN #21 tablet 05/20/20 Unknown Rx Ondansetron [Zofran Odt] 4 mg PO Q8HR #15 tab.rapdis 05/20/20 Unknown Rx traMADoL [Ultram 50 MG tab] 50 mg PO Q6HR PRN #10 tablet 05/20/20 Unknown Rx Allergies Allergy/AdvReac Type Severity Reaction Status Date / Time No Known Allergies Allergy Verified 09/24/14 20:10 ED Review of Systems ROS: Stated complaint: ABD PAIN Other details as noted in HPI Constitutional: denies: chills, diaphoresis, fever, malaise, weakness ENT: denies: throat pain Respiratory: denies: cough, shortness of breath Cardiovascular: denies: chest pain Gastrointestinal: abdominal pain, nausea, vomiting. denies: diarrhea, constipation, hematemesis, melena, hematochezia Genitourinary: abnormal menses. denies: urgency, dysuria, frequency, hematuria, discharge Skin: denies: rash, lesions Neurological: denies: headache, paresthesias Hematological/Lymphatic: denies: easy bleeding, easy bruising ED Past Medical Hx - Past Medical History Previous Medical History?: Yes Hx Asthma: Yes Additional medical history: sinus, Obesity - Surgical History Past Surgical History?: No - Social History Smoking Status: Never Smoker Substance Use Type: None - Medications Home Medications: Home Medications Medication Instructions Recorded Confirmed Last Taken Type Cetirizine HCl [Zyrtec] 10 mg PO DAILY 07/18/13 07/18/13 Unknown History Fluticasone Propionate [Flonase] 2 sprays NS QDAY #1 bottle 09/25/14 Unknown Rx predniSONE [Deltasone] 40 mg PO QDAY #10 tab 04/10/15 Unknown Rx Acetaminophen [Tylenol Arthritis] 650 mg PO Q6HR PRN #30 tablet.er 02/16/18 Unknown Rx Ibuprofen [Motrin] 600 mg PO Q8H PRN #30 tablet 02/16/18 Unknown Rx Ondansetron [Zofran Odt] 4 mg PO Q8HR PRN #10 tab.rapdis 03/17/18 Unknown Rx Dicyclomine [Bentyl] 10 mg PO BID #20 capsule 08/29/18 Unknown Rx Ondansetron [Zofran ODT TAB] 8 mg PO Q12HR #30 tab.rapdis 08/29/18 Unknown Rx Naproxen [Naprosyn] 500 mg PO BID #14 tablet 08/31/18 Unknown Rx 21/Iron Fu/Folic Acid 1 each PO DAILY #30 tablet 11/08/18 Unknown Rx [ Complete Caplet] Acetaminophen [Non-Aspirin Extra 500 mg PO Q6HR PRN #30 tablet 05/17/19 Unknown Rx Strength] Dicyclomine [Bentyl] 10 mg PO QID PRN #20 capsule 05/17/19 Unknown Rx Ibuprofen [Motrin] 600 mg PO Q8H PRN #30 tablet 05/17/19 Unknown Rx Pantoprazole [Protonix] 40 mg PO QDAY #30 tablet 07/16/19 Unknown Rx Famotidine [Pepcid] 40 mg PO QHS #30 tablet 08/29/19 Unknown Rx Polyethylene Glycol 3350 [Miralax] 7 gm PO DAILY PRN #1 powder 08/29/19 Unknown Rx Sucralfate [Carafate] 1 gm PO ACHS #21 tablet 08/29/19 Unknown Rx Famotidine [Pepcid] 20 mg PO BID #30 tablet 09/22/19 Unknown Rx Ondansetron [Zofran ODT TAB] 8 mg PO Q8HR #20 tab.rapdis 09/22/19 Unknown Rx Azithromycin [Zithromax Z-NELLI] 250 mg PO DAILY #6 tablet 11/06/19 Unknown Rx Benzonatate [Tessalon Perles] 100 mg PO Q8HR PRN #20 capsule 11/06/19 Unknown Rx Ibuprofen [Motrin] 600 mg PO Q8H PRN #20 tablet 11/06/19 Unknown Rx Fluconazole (Nf) [Diflucan TAB] 150 mg PO ONCE #1 tablet 11/22/19 Unknown Rx Ibuprofen [Motrin 800 MG tab] 800 mg PO Q8HR PRN #24 tablet 11/22/19 Unknown Rx Ondansetron [Zofran ODT TAB] 4 mg PO Q6HR PRN #15 tab.rapdis 11/22/19 Unknown Rx cephALEXin [Keflex] 500 mg PO Q6HR #40 capsule 11/22/19 Unknown Rx metroNIDAZOLE [Flagyl] 500 mg PO Q12HR #14 tab 11/22/19 Unknown Rx traMADoL [Ultram 50 MG tab] 50 mg PO Q6HR PRN #10 tablet 11/22/19 Unknown Rx Ibuprofen [Motrin 800 MG tab] 800 mg PO Q8HR PRN #21 tablet 05/20/20 Unknown Rx Ondansetron [Zofran Odt] 4 mg PO Q8HR #15 tab.rapdis 05/20/20 Unknown Rx traMADoL [Ultram 50 MG tab] 50 mg PO Q6HR PRN #10 tablet 05/20/20 Unknown Rx ED Physical Exam - General Limitations: No Limitations General appearance: alert, in no apparent distress, obese - Head Head exam: Present: atraumatic, normocephalic - Eye Eye exam: Present: normal appearance. Absent: scleral icterus - Neck Neck exam: Present: normal inspection - Respiratory Respiratory exam: Present: normal lung sounds bilaterally. Absent: respiratory distress - Cardiovascular Cardiovascular Exam: Present: regular rate, normal rhythm. Absent: systolic murmur, diastolic murmur, rubs, gallop - GI/Abdominal GI/Abdominal exam: Present: soft, tenderness (Periumbilical, suprapubic ), normal bowel sounds. Absent: distended, guarding, rebound, rigid - Extremities Exam Extremities exam: Present: normal inspection - Back Exam Back exam: Present: normal inspection - Neurological Exam Neurological exam: Present: alert, oriented X3, normal gait. Absent: motor sensory deficit - Psychiatric Psychiatric exam: Present: normal affect, normal mood - Skin Skin exam: Present: warm, dry, intact, normal color. Absent: rash, cyanosis, diaphoretic ED Course Vital Signs 05/19/20 21:31 Temperature 98.0 F Pulse Rate 104 H Respiratory 18 Rate Blood Pressure 155/73 O2 Sat by Pulse 98 Oximetry - Reevaluation(s) Reevaluation #1: 05/19/20 23:45 Blood work is normal. UA is negative for infection. After reporting normal labs to patient, patient states she forgot to inform me that she had a positive blood test earlier today; hCG quantitative ordered, if positive will add OB ultrasound given vaginal spotting and pain 05/19/20 23:46 ED Medical Decision Making - Lab Data Result diagrams: 05/19/20 22:41 05/19/20 22:41 Lab Results 05/19/20 05/19/20 05/19/20 Range/Units 22:41 22:41 23:45 WBC 10.3 (4.5-11.0) K/mm3 RBC 3.90 (3.65-5.03) M/mm3 Hgb 11.9 (10.1-14.3) gm/dl Hct 34.3 (30.3-42.9) % MCV 88 (79-97) fl MCH 31 (28-32) pg MCHC 35 H (30-34) % RDW 13.5 (13.2-15.2) % Plt Count 299 (140-440) K/mm3 Sodium 141 (137-145) mmol/L Potassium 3.9 (3.6-5.0) mmol/L Chloride 99.7 (98-107) mmol/L Carbon Dioxide 25 (22-30) mmol/L Anion Gap 20 mmol/L BUN 9 (7-17) mg/dL Creatinine 0.8 (0.6-1.2) mg/dL Estimated GFR > 60 ml/min BUN/Creatinine Ratio 11 % Glucose 101 H (65-100) mg/dL Calcium 9.9 (8.4-10.2) mg/dL Total Bilirubin 0.30 (0.1-1.2) mg/dL AST 19 (5-40) units/L ALT 15 (7-56) units/L Alkaline Phosphatase 80 (35-129) units/L Total Protein 7.9 (6.3-8.2) g/dL Albumin 4.7 (3.9-5) g/dL Albumin/Globulin Ratio 1.5 % Lipase 18 (13-60) units/L HCG, Quant 0.521 (0-4) mIU/mL Urine Color (Yellow) Urine Turbidity (Clear) Urine pH (5.0-7.0) Ur Specific [place] (1.003-1.030) Urine Protein (Negative) mg/dL Urine Glucose (UA) (Negative) mg/dL Urine Ketones (Negative) mg/dL Urine Blood (Negative) Urine Nitrite (Negative) Ur Reducing Substances Urine Bilirubin (Negative) Urine Ictotest Urine Urobilinogen (<2.0) mg/dL Ur Leukocyte Esterase (Negative) Urine WBC (Auto) (0.0-6.0) /HPF Urine RBC (Auto) (0.0-6.0) /HPF U Epithel Cells (Auto) (0-13.0) /HPF Urine Mucus /HPF Urine HCG, Qual (Negative) 05/19/ Range/Units Unknown WBC (4.5-11.0) K/mm3 RBC (3.65-5.03) M/mm3 Hgb (10.1-14.3) gm/dl Hct (30.3-42.9) % MCV (79-97) fl MCH (28-32) pg MCHC (30-34) % RDW (13.2-15.2) % Plt Count (140-440) K/mm3 Sodium (137-145) mmol/L Potassium (3.6-5.0) mmol/L Chloride (98-107) mmol/L Carbon Dioxide (22-30) mmol/L Anion Gap mmol/L BUN (7-17) mg/dL Creatinine (0.6-1.2) mg/dL Estimated GFR ml/min BUN/Creatinine Ratio % Glucose (65-100) mg/dL Calcium (8.4-10.2) mg/dL Total Bilirubin (0.1-1.2) mg/dL AST (5-40) units/L ALT (7-56) units/L Alkaline Phosphatase (35-129) units/L Total Protein (6.3-8.2) g/dL Albumin (3.9-5) g/dL Albumin/Globulin Ratio % Lipase (13-60) units/L HCG, Quant (0-4) mIU/mL Urine Color Yellow (Yellow) Urine Turbidity Cloudy (Clear) Urine pH 6.0 (5.0-7.0) Ur Specific [place] 1.026 (1.003-1.030) Urine Protein 30 mg/dl (Negative) mg/dL Urine Glucose (UA) Neg (Negative) mg/dL Urine Ketones Neg (Negative) mg/dL Urine Blood Neg (Negative) Urine Nitrite Neg (Negative) Ur Reducing Substances Not Reportable Urine Bilirubin Neg (Negative) Urine Ictotest Not Reportable Urine Urobilinogen 4.0 (<2.0) mg/dL Ur Leukocyte Esterase Tr (Negative) Urine WBC (Auto) 1.0 (0.0-6.0) /HPF Urine RBC (Auto) 3.0 (0.0-6.0) /HPF U Epithel Cells (Auto) 50.0 H (0-13.0) /HPF Urine Mucus 1+ /HPF Urine HCG, Qual Negative (Negative) - Radiology Data Radiology results: report reviewed Patient here for mid lower abdominal pain for 2 weeks. CBC, CMP, lipase, UA, and urine prior tests are negative. Patient states that she has been having vaginal spotting and states she had a positive blood test at her primary care doctor's office today. hCG quantitative added and is negative for . Patient also reports she had STI testing done 1 week ago by her SKIP OPERATOR which was negative. No rebound or guarding of abdomen is noted on exam. Initial BP was 155/73, on repeat noted to be 163/110-she denies history of hypertension or any symptoms of her pressure being high at this time. Patient instructed to have her blood pressure rechecked by her primary care provider in 2 days. Patient is stable for discharge home and follow-up with SKIP OPERATOR and PCP. Strict return precautions were discussed in detail with patient who verbalizes understanding. Critical care attestation.: If time is entered above; I have spent that time in minutes in the direct care of this critically ill patient, excluding procedure time. ED Disposition Clinical Impression: Lower abdominal pain, Elevated blood pressure reading Disposition: TO HOME OR SELFCARE Is pt being admited?: No Condition: Stable Instructions: Abdominal Pain (ED) Additional Instructions: Please follow-up with your SKIP OPERATOR within 3 days for further evaluation Prescriptions: Ibuprofen [Motrin 800 MG tab] 800 mg PO Q8HR PRN #21 tablet PRN Reason: pain traMADoL [Ultram 50 MG tab] 50 mg PO Q6HR PRN #10 tablet PRN Reason: Pain Ondansetron [Zofran Odt] 4 mg PO Q8HR #15 tab.[email or web address] Referrals: PRIMARY MD ARTI [Primary Care Provider] - 05/21/20
[2020-05-19 23:10] LABS: Hematocrit 34.3 % (30.3-42.9); Hemoglobin 11.9 gm/dl (10.1-14.3); Mean Corpuscular HGB Conc 35 % (30-34); Mean Corpuscular Volume 88 fl (79-97); Platelet Count 299 K/mm3 (140-440); Red Cell Distribution Width 13.5 % (13.2-15.2)
[2020-05-19 23:33] LABS: Alanine Aminotransferase 15 units/L (7-56); Albumin 4.7 g/dL (3.9-5); BUN/Creatinine Ratio 11; Blood Urea Nitrogen 9 mg/dL (7-17); Calcium 9.9 mg/dL (8.4-10.2); Hemolysis Index 1
[2020-05-20 01:08] VITALS: BP 163/110
[2020-05-20 02:18] LABS: Anisocytosis 1+; Band Neutrophils # (Manual) 0.1 K/mm3; Basophils % (Manual) 0 % (0.0-1.8); Eosinophils % (Manual) 0 % (0.0-4.3); Platelet Estimate Consistent w Auto; Total Cells Counted 100
== END 2020-05-20 01:16 | disposition home or self-care (01) ==
LOC: ED 21:09
DX: R10.30 Lower abdominal pain, unspecified (principal); I10 Essential (primary) hypertension; J45.909 Unspecified asthma, uncomplicated; Z79.899 Other long term (current) drug therapy
CPT/HCPCS: 36415; 80053; 81001; 81025; 83690; 84702; 85007; 85025; 96361; 96374; 96375; 99283; J2270; J2405; J7030

== ENCOUNTER 2020-09-19 05:48 | Emergency (ER) | payer SELFPAY ==
[2020-09-19 07:11] VITALS: BP 122/74
[2020-09-19] MEDS ORDERED: ONDANSETRON 4 MG ODT TAB PO ONE (09:06)
--- NOTE | 2020-09-19 09:08 | Emergency Department Report ---
ED General Adult HPI - General Chief complaint: Upper Respiratory Infection Stated complaint: URI Time Seen by Provider: 09/19/20 09:03 Source: patient Mode of arrival: Ambulatory Limitations: No Limitations - History of Present Illness Initial comments: 19-year-old female with history of asthma presenting with chief complaint of cough, congestion, sore throat, shortness of breath for the past few days. This was gradual in onset. Denies fever but does have low-grade fever here. She states that on Wednesday she saw her primary doctor who prescribed her an antibiotic and gave her a steroid injection. She states that she still does not feel better so she called his office and was advised to come get a chest x-ray. Symptoms are moderate, no alleviating or exacerbating factors. - Related Data Home Medications Medication Instructions Recorded Confirmed Last Taken Cetirizine HCl [Zyrtec] 10 mg PO DAILY 07/18/13 07/18/13 Unknown Previous Rx's Medication Instructions Recorded Last Taken Type Fluticasone Propionate [Flonase] 2 sprays NS QDAY #1 bottle 09/25/14 Unknown Rx Acetaminophen [Tylenol Arthritis] 650 mg PO Q6HR PRN #30 tablet.er 02/16/18 Unknown Rx Ibuprofen [Motrin] 600 mg PO Q8H PRN #30 tablet 02/16/18 Unknown Rx Ondansetron [Zofran Odt] 4 mg PO Q8HR PRN #10 tab.rapdis 03/17/18 Unknown Rx Dicyclomine [Bentyl] 10 mg PO BID #20 capsule 08/29/18 Unknown Rx Ondansetron [Zofran ODT TAB] 8 mg PO Q12HR #30 tab.rapdis 08/29/18 Unknown Rx Naproxen [Naprosyn] 500 mg PO BID #14 tablet 08/31/18 Unknown Rx 21/Iron Fu/Folic Acid 1 each PO DAILY #30 tablet 11/08/18 Unknown Rx [ Complete Caplet] Acetaminophen [Non-Aspirin Extra 500 mg PO Q6HR PRN #30 tablet 05/17/19 Unknown Rx Strength] Dicyclomine [Bentyl] 10 mg PO QID PRN #20 capsule 05/17/19 Unknown Rx Ibuprofen [Motrin] 600 mg PO Q8H PRN #30 tablet 05/17/19 Unknown Rx Pantoprazole [Protonix] 40 mg PO QDAY #30 tablet 10/27/19 Unknown Rx Famotidine [Pepcid] 40 mg PO QHS #30 tablet 08/29/19 Unknown Rx Polyethylene Glycol 3350 [Miralax] 7 gm PO DAILY PRN #1 powder 08/29/19 Unknown Rx Sucralfate [Carafate] 1 gm PO ACHS #21 tablet 08/29/19 Unknown Rx Famotidine [Pepcid] 20 mg PO BID #30 tablet 09/22/19 Unknown Rx Ondansetron [Zofran ODT TAB] 8 mg PO Q8HR #20 tab.rapdis 09/22/19 Unknown Rx Azithromycin [Zithromax Z-NELLI] 250 mg PO DAILY #6 tablet 11/06/19 Unknown Rx Ibuprofen [Motrin] 600 mg PO Q8H PRN #20 tablet 11/06/19 Unknown Rx Fluconazole (Nf) [Diflucan TAB] 150 mg PO ONCE #1 tablet 11/22/19 Unknown Rx Ibuprofen [Motrin 800 MG tab] 800 mg PO Q8HR PRN #24 tablet 11/22/19 Unknown Rx Ondansetron [Zofran ODT TAB] 4 mg PO Q6HR PRN #15 tab.rapdis 11/22/19 Unknown Rx cephALEXin [Keflex] 500 mg PO Q6HR #40 capsule 11/22/19 Unknown Rx metroNIDAZOLE [Flagyl] 500 mg PO Q12HR #14 tab 11/22/19 Unknown Rx traMADoL [Ultram 50 MG tab] 50 mg PO Q6HR PRN #10 tablet 11/22/19 Unknown Rx Ibuprofen [Motrin 800 MG tab] 800 mg PO Q8HR PRN #21 tablet 05/20/20 Unknown Rx Ondansetron [Zofran Odt] 4 mg PO Q8HR #15 tab.rapdis 05/20/20 Unknown Rx traMADoL [Ultram 50 MG tab] 50 mg PO Q6HR PRN #10 tablet 05/20/20 Unknown Rx Albuterol Sulfate [Proventil Hfa] 2 puff IH Q4HR #1 hfa.aer.ad 09/19/20 Unknown Rx Benzonatate [Tessalon Perles] 100 mg PO Q8HR PRN #20 capsule 09/19/20 Unknown Rx predniSONE [Deltasone] 40 mg PO QDAY #10 tab 09/19/20 Unknown Rx Allergies Allergy/AdvReac Type Severity Reaction Status Date / Time No Known Allergies Allergy Verified 09/19/20 07:07 ED Review of Systems ROS: Stated complaint: URI Other details as noted in HPI Comment: All other systems reviewed and negative ENT: as per HPI Respiratory: see HPI ED Past Medical Hx - Past Medical History Hx Asthma: Yes Additional medical history: sinus, Obesity/ALLERGICS - Surgical History Past Surgical History?: No - Social History Smoking Status: Never Smoker Substance Use Type: None - Medications Home Medications: Home Medications Medication Instructions Recorded Confirmed Last Taken Type Cetirizine HCl [Zyrtec] 10 mg PO DAILY 07/18/13 07/18/13 Unknown History Fluticasone Propionate [Flonase] 2 sprays NS QDAY #1 bottle 09/25/14 Unknown Rx Acetaminophen [Tylenol Arthritis] 650 mg PO Q6HR PRN #30 tablet.er 02/16/18 Unknown Rx Ibuprofen [Motrin] 600 mg PO Q8H PRN #30 tablet 02/16/18 Unknown Rx Ondansetron [Zofran Odt] 4 mg PO Q8HR PRN #10 tab.rapdis 03/17/18 Unknown Rx Dicyclomine [Bentyl] 10 mg PO BID #20 capsule 08/29/18 Unknown Rx Ondansetron [Zofran ODT TAB] 8 mg PO Q12HR #30 tab.rapdis 08/29/18 Unknown Rx Naproxen [Naprosyn] 500 mg PO BID #14 tablet 08/31/18 Unknown Rx 21/Iron Fu/Folic Acid 1 each PO DAILY #30 tablet 11/08/18 Unknown Rx [ Complete Caplet] Acetaminophen [Non-Aspirin Extra 500 mg PO Q6HR PRN #30 tablet 05/17/19 Unknown Rx Strength] Dicyclomine [Bentyl] 10 mg PO QID PRN #20 capsule 05/17/19 Unknown Rx Ibuprofen [Motrin] 600 mg PO Q8H PRN #30 tablet 05/17/19 Unknown Rx Pantoprazole [Protonix] 40 mg PO QDAY #30 tablet 07/16/19 Unknown Rx Famotidine [Pepcid] 40 mg PO QHS #30 tablet 08/29/19 Unknown Rx Polyethylene Glycol 3350 [Miralax] 7 gm PO DAILY PRN #1 powder 08/29/19 Unknown Rx Sucralfate [Carafate] 1 gm PO ACHS #21 tablet 08/29/19 Unknown Rx Famotidine [Pepcid] 20 mg PO BID #30 tablet 09/22/19 Unknown Rx Ondansetron [Zofran ODT TAB] 8 mg PO Q8HR #20 tab.rapdis 09/22/19 Unknown Rx Azithromycin [Zithromax Z-NELLI] 250 mg PO DAILY #6 tablet 11/06/19 Unknown Rx Ibuprofen [Motrin] 600 mg PO Q8H PRN #20 tablet 11/06/19 Unknown Rx Fluconazole (Nf) [Diflucan TAB] 150 mg PO ONCE #1 tablet 11/22/19 Unknown Rx Ibuprofen [Motrin 800 MG tab] 800 mg PO Q8HR PRN #24 tablet 11/22/19 Unknown Rx Ondansetron [Zofran ODT TAB] 4 mg PO Q6HR PRN #15 tab.rapdis 11/22/19 Unknown Rx cephALEXin [Keflex] 500 mg PO Q6HR #40 capsule 11/22/19 Unknown Rx metroNIDAZOLE [Flagyl] 500 mg PO Q12HR #14 tab 11/22/19 Unknown Rx traMADoL [Ultram 50 MG tab] 50 mg PO Q6HR PRN #10 tablet 11/22/19 Unknown Rx Ibuprofen [Motrin 800 MG tab] 800 mg PO Q8HR PRN #21 tablet 05/20/20 Unknown Rx Ondansetron [Zofran Odt] 4 mg PO Q8HR #15 tab.rapdis 05/20/20 Unknown Rx traMADoL [Ultram 50 MG tab] 50 mg PO Q6HR PRN #10 tablet 05/20/20 Unknown Rx Albuterol Sulfate [Proventil Hfa] 2 puff IH Q4HR #1 hfa.aer.ad 09/19/20 Unknown Rx Benzonatate [Tessalon Perles] 100 mg PO Q8HR PRN #20 capsule 09/19/20 Unknown Rx predniSONE [Deltasone] 40 mg PO QDAY #10 tab 09/19/20 Unknown Rx ED Physical Exam - General Limitations: No Limitations General appearance: alert, in no apparent distress - Head Head exam: Present: atraumatic, normocephalic - Eye Eye exam: Present: normal appearance - ENT ENT exam: Present: normal orophraynx, mucous membranes moist - Neck Neck exam: Present: normal inspection. Absent: meningismus - Respiratory Respiratory exam: Present: decreased breath sounds. Absent: respiratory distress, wheezes, rales, rhonchi - Cardiovascular Cardiovascular Exam: Present: normal rhythm, tachycardia. Absent: systolic murmur, diastolic murmur, rubs, gallop - GI/Abdominal GI/Abdominal exam: Present: soft, normal bowel sounds - Extremities Exam Extremities exam: Present: normal inspection - Back Exam Back exam: Present: normal inspection - Neurological Exam Neurological exam: Present: alert, oriented X3 - Psychiatric Psychiatric exam: Present: normal affect, normal mood - Skin Skin exam: Present: warm, dry, intact, normal color. Absent: rash ED Course Vital Signs 09/19/20 07:10 Temperature 100.0 F H Pulse Rate 119 H Respiratory 20 Rate Blood Pressure 122/74 O2 Sat by Pulse 97 Oximetry ED Medical Decision Making - Radiology Data Radiology results: report reviewed Negative chest x-ray - Medical Decision Making Patient presenting with cough and congestion along with some shortness of breath over the past few days. On my exam she is nontoxic in appearance, no distress, mildly diminished breath sounds but no wheezing or rhonchi. Differential diagnoses include sinusitis, bronchitis, pneumonia. X-ray pending. Chest x-ray negative, heart rate improved, O2 normal. Will discharge on steroids, inhaler. Follow-up PCP return if worse. - Differential Diagnosis Bronchitis, pneumonia, sinusitis Critical care attestation.: If time is entered above; I have spent that time in minutes in the direct care of this critically ill patient, excluding procedure time. ED Disposition Clinical Impression: Acute bronchitis Qualifiers: Bronchitis organism: unspecified organism Qualified Code(s): J20.9 - Acute bronchitis, unspecified Disposition: - TO HOME OR SELFCARE Is pt being admited?: No Condition: Good Instructions: Acute Bronchitis (ED), Acute Bronchitis, Adult, [id number] Prescriptions: predniSONE [Deltasone] 40 mg PO QDAY #10 tab Albuterol Sulfate [Proventil Hfa] 2 puff IH Q4HR #1 hfa.aer.ad Benzonatate [Tessalon Perles] 100 mg PO Q8HR PRN #20 capsule PRN Reason: Cough Referrals: PRIMARY CARE, [Primary Care Provider] - 3-5 Days Time of Disposition: 11:12
[2020-09-19 10:25] LABS: HCG Qualitative,Urine Negative (Negative)
--- NOTE | 2020-09-19 11:00 | XRay Report ---
CHEST 2 VIEWS INDICATION / CLINICAL INFORMATION: Cough, shortness of breath. COMPARISON: 11/06/2019 FINDINGS: SUPPORT DEVICES: None. HEART / MEDIASTINUM: No significant abnormality. LUNGS / PLEURA: No significant pulmonary or pleural abnormality. No pneumothorax. ADDITIONAL FINDINGS: No significant additional findings. IMPRESSION: 1. No acute findings. Signer Name: Ozzie Stapleton MD Signed: 09/19/2020 10:56 AM Workstation Name: [id number]
== END 2020-09-19 11:29 | disposition home or self-care (01) ==
LOC: ED 05:48
DX: J20.9 Acute bronchitis, unspecified (principal); J45.909 Unspecified asthma, uncomplicated; E66.9 Obesity, unspecified; Z79.899 Other long term (current) drug therapy; Z68.43 Body mass index [BMI] 50.0-59.9, adult
CPT/HCPCS: 71046; 81025; 93005; Q0162

== ENCOUNTER 2020-11-06 16:15 | Emergency (ER) | payer SELFPAY ==
[2020-11-06 17:18] VITALS: BP 132/78
[2020-11-06 17:42] LABS: Basophils # (Auto) 0.1 K/mm3 (0.0-0.1); Basophils % (Auto) 0.7 % (0.0-1.8); Eosinophils # (Auto) 0.1 K/mm3 (0.0-0.4); Hematocrit 36.8 % (30.3-42.9); Hemoglobin 12.2 gm/dl (10.1-14.3); Lymphocytes # (Auto) 3.5 K/mm3 (1.2-5.4); Lymphocytes % (Auto) 29.6 % (13.4-35.0); Mean Corpuscular HGB Conc 33 % (30-34); Mean Corpuscular Volume 91 fl (79-97); Monocytes # (Auto) 0.8 K/mm3 (0.0-0.8); Monocytes % (Auto) 6.9 % (0.0-7.3); Platelet Count 307 K/mm3 (140-440); Red Blood Count 4.04 M/mm3 (3.65-5.03)
[2020-11-06 18:10] LABS: Alanine Aminotransferase 16 units/L (7-56); Albumin 4.5 g/dL (3.9-5); Blood Urea Nitrogen 6 mg/dL (7-17); Calcium 9.6 mg/dL (8.4-10.2); Hemolysis Index 3
[2020-11-06 18:11] LABS: BUN/Creatinine Ratio 10
[2020-11-06 18:17] LABS: Bilirubin,Urine NEG (Negative); Blood,Urine NEG (Negative); Color,Urine Yellow (Yellow); Mucus,Urine FEW /HPF; Protein,Urine <15 mg/dL mg/dL (Negative); Urobilinogen,Urine < 2.0 mg/dL (<2.0); WBC,Urine < 1.0 /HPF (0.0-6.0)
--- NOTE | 2020-11-06 19:12 | Emergency Department Report ---
ED Abdominal Pain HPI - General Chief Complaint: Abdominal Pain Stated Complaint: STOMACH PAIN Time Seen by Provider: 11/06/20 17:23 Source: patient Mode of arrival: Ambulatory Limitations: No Limitations - History of Present Illness Initial Comments: 19-year-old obese -[place] female presents emergency department complaining of reemergence of abdominal pain associated with nausea and occasional vomiting. Pain is across the top of abdomen primarily associated when she eats fatty, greasy foods or dairy products. States that she was followed up by gastroenterology for peptic ulcer disease in the past but did not follow-up for her endoscopy due to a lapse of insurance which is now been corrected. States she does plan to follow-up to complete the course but also wanted to get treated to hold over until her appointment date. States that her mom had had gallstones and she was told that she may have gallstones will but is not sure. She had an ultrasound done previously which did not reveal any gallstones. Ms. Clifton states that she likes to eat fried foods and and and and fatty foods and request medication help her to be able to do so MD Complaint: abdominal pain Radiation: none Severity: mild Quality: cramping, aching Consistency: constant Improves With: nothing Worsens With: nothing - Related Data Home Medications Medication Instructions Recorded Confirmed Last Taken Cetirizine HCl [Zyrtec] 10 mg PO DAILY 07/18/13 07/18/13 Unknown Previous Rx's Medication Instructions Recorded Last Taken Type Fluticasone Propionate [Flonase] 2 sprays NS QDAY #1 bottle 09/25/14 Unknown Rx Acetaminophen [Tylenol Arthritis] 650 mg PO Q6HR PRN #30 tablet.er 02/16/18 Unknown Rx Ibuprofen [Motrin] 600 mg PO Q8H PRN #30 tablet 02/16/18 Unknown Rx Ondansetron [Zofran Odt] 4 mg PO Q8HR PRN #10 tab.rapdis 03/17/18 Unknown Rx Dicyclomine [Bentyl] 10 mg PO BID #20 capsule 08/29/18 Unknown Rx Ondansetron [Zofran ODT TAB] 8 mg PO Q12HR #30 tab.rapdis 08/29/18 Unknown Rx Naproxen [Naprosyn] 500 mg PO BID #14 tablet 08/31/18 Unknown Rx 21/Iron Fu/Folic Acid 1 each PO DAILY #30 tablet 11/08/18 Unknown Rx [ Complete Caplet] Acetaminophen [Non-Aspirin Extra 500 mg PO Q6HR PRN #30 tablet 05/17/19 Unknown Rx Strength] Dicyclomine [Bentyl] 10 mg PO QID PRN #20 capsule 05/17/19 Unknown Rx Ibuprofen [Motrin] 600 mg PO Q8H PRN #30 tablet 05/17/19 Unknown Rx Pantoprazole [Protonix] 40 mg PO QDAY #30 tablet 07/16/19 Unknown Rx Famotidine [Pepcid] 40 mg PO QHS #30 tablet 08/29/19 Unknown Rx Polyethylene Glycol 3350 [Miralax] 7 gm PO DAILY PRN #1 powder 08/29/19 Unknown Rx Sucralfate [Carafate] 1 gm PO ACHS #21 tablet 08/29/19 Unknown Rx Famotidine [Pepcid] 20 mg PO BID #30 tablet 09/22/19 Unknown Rx Ondansetron [Zofran ODT TAB] 8 mg PO Q8HR #20 tab.rapdis 09/22/19 Unknown Rx Azithromycin [Zithromax Z-NELLI] 250 mg PO DAILY #6 tablet 11/06/19 Unknown Rx Ibuprofen [Motrin] 600 mg PO Q8H PRN #20 tablet 11/06/19 Unknown Rx Fluconazole (Nf) [Diflucan TAB] 150 mg PO ONCE #1 tablet 11/22/19 Unknown Rx Ibuprofen [Motrin 800 MG tab] 800 mg PO Q8HR PRN #24 tablet 11/22/19 Unknown Rx Ondansetron [Zofran ODT TAB] 4 mg PO Q6HR PRN #15 tab.rapdis 11/22/19 Unknown Rx cephALEXin [Keflex] 500 mg PO Q6HR #40 capsule 11/22/19 Unknown Rx metroNIDAZOLE [Flagyl] 500 mg PO Q12HR #14 tab 11/22/19 Unknown Rx traMADoL [Ultram 50 MG tab] 50 mg PO Q6HR PRN #10 tablet 11/22/19 Unknown Rx Ibuprofen [Motrin 800 MG tab] 800 mg PO Q8HR PRN #21 tablet 05/20/20 Unknown Rx Ondansetron [Zofran Odt] 4 mg PO Q8HR #15 tab.rapdis 05/20/20 Unknown Rx traMADoL [Ultram 50 MG tab] 50 mg PO Q6HR PRN #10 tablet 05/20/20 Unknown Rx Albuterol Sulfate [Proventil Hfa] 2 puff IH Q4HR #1 hfa.aer.ad 09/19/20 Unknown Rx Benzonatate [Tessalon Perles] 100 mg PO Q8HR PRN #20 capsule 09/19/20 Unknown Rx predniSONE [Deltasone] 40 mg PO QDAY #10 tab 09/19/20 Unknown Rx Famotidine [Pepcid] 40 mg PO QHS #30 tablet 11/06/20 Unknown Rx Hyoscyamine Subl [Levsin Sl 0.125 0.125 mg SL Q6HR PRN #30 tab 11/06/20 Unknown Rx TAB] Ondansetron [Zofran Odt] 4 mg PO Q8HR #20 tab.rapdis 11/06/20 Unknown Rx Allergies Allergy/AdvReac Type Severity Reaction Status Date / Time No Known Allergies Allergy Verified 09/19/20 07:07 ED Review of Systems ROS: Stated complaint: STOMACH PAIN Other details as noted in HPI Comment: All other systems reviewed and negative ED Past Medical Hx - Past Medical History Hx Asthma: Yes Additional medical history: sinus, Obesity/ALLERGICS - Surgical History Past Surgical History?: No - Social History Smoking Status: Never Smoker - Medications Home Medications: Home Medications Medication Instructions Recorded Confirmed Last Taken Type Cetirizine HCl [Zyrtec] 10 mg PO DAILY 07/18/13 07/18/13 Unknown History Fluticasone Propionate [Flonase] 2 sprays NS QDAY #1 bottle 09/25/14 Unknown Rx Acetaminophen [Tylenol Arthritis] 650 mg PO Q6HR PRN #30 tablet.er 02/16/18 Unknown Rx Ibuprofen [Motrin] 600 mg PO Q8H PRN #30 tablet 02/16/18 Unknown Rx Ondansetron [Zofran Odt] 4 mg PO Q8HR PRN #10 tab.rapdis 03/17/18 Unknown Rx Dicyclomine [Bentyl] 10 mg PO BID #20 capsule 08/29/18 Unknown Rx Ondansetron [Zofran ODT TAB] 8 mg PO Q12HR #30 tab.rapdis 08/29/18 Unknown Rx Naproxen [Naprosyn] 500 mg PO BID #14 tablet 08/31/18 Unknown Rx 21/Iron Fu/Folic Acid 1 each PO DAILY #30 tablet 11/08/18 Unknown Rx [ Complete Caplet] Acetaminophen [Non-Aspirin Extra 500 mg PO Q6HR PRN #30 tablet 05/17/19 Unknown Rx Strength] Dicyclomine [Bentyl] 10 mg PO QID PRN #20 capsule 05/17/19 Unknown Rx Ibuprofen [Motrin] 600 mg PO Q8H PRN #30 tablet 05/17/19 Unknown Rx Pantoprazole [Protonix] 40 mg PO QDAY #30 tablet 07/16/19 Unknown Rx Famotidine [Pepcid] 40 mg PO QHS #30 tablet 08/29/19 Unknown Rx Polyethylene Glycol 3350 [Miralax] 7 gm PO DAILY PRN #1 powder 08/29/19 Unknown Rx Sucralfate [Carafate] 1 gm PO ACHS #21 tablet 08/29/19 Unknown Rx Famotidine [Pepcid] 20 mg PO BID #30 tablet 09/22/19 Unknown Rx Ondansetron [Zofran ODT TAB] 8 mg PO Q8HR #20 tab.rapdis 09/22/19 Unknown Rx Azithromycin [Zithromax Z-NELLI] 250 mg PO DAILY #6 tablet 11/06/19 Unknown Rx Ibuprofen [Motrin] 600 mg PO Q8H PRN #20 tablet 11/06/19 Unknown Rx Fluconazole (Nf) [Diflucan TAB] 150 mg PO ONCE #1 tablet 11/22/19 Unknown Rx Ibuprofen [Motrin 800 MG tab] 800 mg PO Q8HR PRN #24 tablet 11/22/19 Unknown Rx Ondansetron [Zofran ODT TAB] 4 mg PO Q6HR PRN #15 tab.rapdis 11/22/19 Unknown Rx cephALEXin [Keflex] 500 mg PO Q6HR #40 capsule 11/22/19 Unknown Rx metroNIDAZOLE [Flagyl] 500 mg PO Q12HR #14 tab 11/22/19 Unknown Rx traMADoL [Ultram 50 MG tab] 50 mg PO Q6HR PRN #10 tablet 11/22/19 Unknown Rx Ibuprofen [Motrin 800 MG tab] 800 mg PO Q8HR PRN #21 tablet 05/20/20 Unknown Rx Ondansetron [Zofran Odt] 4 mg PO Q8HR #15 tab.rapdis 05/20/20 Unknown Rx traMADoL [Ultram 50 MG tab] 50 mg PO Q6HR PRN #10 tablet 05/20/20 Unknown Rx Albuterol Sulfate [Proventil Hfa] 2 puff IH Q4HR #1 hfa.aer.ad 09/19/20 Unknown Rx Benzonatate [Tessalon Perles] 100 mg PO Q8HR PRN #20 capsule 09/19/20 Unknown Rx predniSONE [Deltasone] 40 mg PO QDAY #10 tab 09/19/20 Unknown Rx Famotidine [Pepcid] 40 mg PO QHS #30 tablet 11/06/20 Unknown Rx Hyoscyamine Subl [Levsin Sl 0.125 0.125 mg SL Q6HR PRN #30 tab 11/06/20 Unknown Rx TAB] Ondansetron [Zofran Odt] 4 mg PO Q8HR #20 tab.rapdis 11/06/20 Unknown Rx ED Physical Exam - General Limitations: No Limitations General appearance: alert, in no apparent distress - Head Head exam: Present: atraumatic, normocephalic - Eye Eye exam: Present: normal appearance, PERRL, EOMI Pupils: Present: normal accommodation - ENT ENT exam: Present: mucous membranes moist - Neck Neck exam: Present: normal inspection - Respiratory Respiratory exam: Present: normal lung sounds bilaterally. Absent: respiratory distress - Cardiovascular Cardiovascular Exam: Present: regular rate, normal rhythm. Absent: systolic mu rmur, diastolic murmur, rubs, gallop - GI/Abdominal GI/Abdominal exam: Present: soft, tenderness, normal bowel sounds. Absent: guarding (Right upper quadrant with palpation.), rebound - Extremities Exam Extremities exam: Present: normal inspection - Back Exam Back exam: Present: normal inspection - Neurological Exam Neurological exam: Present: alert, oriented X3 - Psychiatric Psychiatric exam: Present: normal affect, normal mood - Skin Skin exam: Present: warm, dry, intact, normal color. Absent: rash ED Course Vital Signs 11/06/20 17:14 Temperature 98.2 F Pulse Rate 102 H Respiratory 18 Rate Blood Pressure 132/78 O2 Sat by Pulse 99 Oximetry ED Medical Decision Making - Lab Data Result diagrams: 11/06/20 17:25 11/06/20 17:25 - Medical Decision Making This patient presents with abdominal pain of unclear etiology. Their evaluation has not identified a emergent etiology for the abdominal pain. Specifically, given the very benign exam, normal laboratory studies, and lack of significant risk factors, I have a very low suspicion for appendicitis, ischemic bowel, bowel perforation, or any other life threatening disease. I have discussed with the patient the level of uncertainty with undifferentiated abdominal pain and clearly explained the need to follow-up as noted on the discharge instructions, or return to the Emergency Department immediately if the pain worsens, develops fever, persistent and uncontrollable vomiting, or for any new symptoms or concerns. I discussed with the patient that this presentation today for abdominal pain could represent a significant risk for an acute abdominal process. Although the tests in the ED were essentially normal, there is still a possibility of a process such as appendicitis, diverticulitis, cholecystitis, ulcer, early bowel obstruction, mesenteric ischemia, kidney stone, or even kidney infection which could subsequently cause disability or . Ms. Clifton does report having been told she has some type of a gallbladder issue in the past she was following up with gastroenterology was supposed to get a scope and another test but she has not followed up because of insurance now the patient is back active she states she plans to follow-up with GI to complete the process. the patient understands that they must return within 24 hours for a recheck or see their physician within 24 hours for re-exam due to the possibility of significant surgical or medical process. Critical care attestation.: If time is entered above; I have spent that time in minutes in the direct care of this critically ill patient, excluding procedure time. ED Disposition Clinical Impression: Abdominal pain, Nausea Disposition: DC-01 TO HOME OR SELFCARE Is pt being admited?: No Does the pt Need Aspirin: No Condition: Stable Instructions: Abdominal Pain (ED), Nausea and Vomiting, Adult, Abdominal Pain, Adult, Gallbladder Nuclear Scan Prescriptions: Hyoscyamine Subl [Levsin Sl 0.125 TAB] 0.125 mg SL Q6HR PRN #30 tab PRN Reason: abdominal Famotidine [Pepcid] 40 mg PO QHS #30 tablet Ondansetron [Zofran Odt] 4 mg PO Q8HR #20 tab.rosalia Referrals: [facility] [Provider Group] - 3-5 Days
== END 2020-11-06 18:00 | disposition home or self-care (01) ==
LOC: ED 16:15
DX: R10.9 Unspecified abdominal pain (principal); R11.0 Nausea; J45.909 Unspecified asthma, uncomplicated; E66.9 Obesity, unspecified; Z79.899 Other long term (current) drug therapy; Z68.43 Body mass index [BMI] 50.0-59.9, adult
CPT/HCPCS: 36415; 80053; 81001; 83690; 84702; 85025; 99283

== ENCOUNTER 2020-11-08 01:49 | Emergency (ER) | payer SELFPAY ==
[2020-11-08 02:05] VITALS: BP 144/74
--- NOTE | 2020-11-08 02:09 | Emergency Department Report ---
ED Asthma HPI - General Chief Complaint: Adult Asthma Stated Complaint: MARISSA Time Seen by Provider: 11/08/20 02:04 Source: patient Mode of arrival: Ambulatory Limitations: No Limitations - History of Present Illness Initial Comments: Patient is a 19-year-old -[place] female with history of asthma. Patient states she is out of albuterol inhaler. Patient did go to a family member's house and use their albuterol tonight. Patient advises symptoms are improved at this time. There is no wheezing, stridor, fever, chills there is no cough noted at this time. Patient states symptoms are exacerbated by environmental exposure. Symptoms are relieved by albuterol inhaler as needed. Patient does have follow-up appointment with PCP in 2 weeks. MD Complaint: wheezing - Related Data Home Medications Medication Instructions Recorded Confirmed Last Taken Cetirizine HCl [Zyrtec] 10 mg PO DAILY 07/18/13 07/18/13 Unknown Previous Rx's Medication Instructions Recorded Last Taken Type Fluticasone Propionate [Flonase] 2 sprays NS QDAY #1 bottle 09/25/14 Unknown Rx Acetaminophen [Tylenol Arthritis] 650 mg PO Q6HR PRN #30 tablet.er 02/16/18 Unknown Rx Ibuprofen [Motrin] 600 mg PO Q8H PRN #30 tablet 02/16/18 Unknown Rx Ondansetron [Zofran Odt] 4 mg PO Q8HR PRN #10 tab.rapdis 03/17/18 Unknown Rx Dicyclomine [Bentyl] 10 mg PO BID #20 capsule 08/29/18 Unknown Rx Ondansetron [Zofran ODT TAB] 8 mg PO Q12HR #30 tab.rapdis 08/29/18 Unknown Rx Naproxen [Naprosyn] 500 mg PO BID #14 tablet 08/31/18 Unknown Rx 21/Iron Fu/Folic Acid 1 each PO DAILY #30 tablet 11/08/18 Unknown Rx [ Complete Caplet] Acetaminophen [Non-Aspirin Extra 500 mg PO Q6HR PRN #30 tablet 05/17/19 Unknown Rx Strength] Dicyclomine [Bentyl] 10 mg PO QID PRN #20 capsule 05/17/19 Unknown Rx Ibuprofen [Motrin] 600 mg PO Q8H PRN #30 tablet 05/17/19 Unknown Rx Pantoprazole [Protonix] 40 mg PO QDAY #30 tablet 07/16/19 Unknown Rx Famotidine [Pepcid] 40 mg PO QHS #30 tablet 08/29/19 Unknown Rx Polyethylene Glycol 3350 [Miralax] 7 gm PO DAILY PRN #1 powder 08/29/19 Unknown Rx Sucralfate [Carafate] 1 gm PO ACHS #21 tablet 08/29/19 Unknown Rx Famotidine [Pepcid] 20 mg PO BID #30 tablet 09/22/19 Unknown Rx Ondansetron [Zofran ODT TAB] 8 mg PO Q8HR #20 tab.rapdis 09/22/19 Unknown Rx Azithromycin [Zithromax Z-NELLI] 250 mg PO DAILY #6 tablet 11/06/19 Unknown Rx Ibuprofen [Motrin] 600 mg PO Q8H PRN #20 tablet 11/06/19 Unknown Rx Fluconazole (Nf) [Diflucan TAB] 150 mg PO ONCE #1 tablet 11/22/19 Unknown Rx Ibuprofen [Motrin 800 MG tab] 800 mg PO Q8HR PRN #24 tablet 11/22/19 Unknown Rx Ondansetron [Zofran ODT TAB] 4 mg PO Q6HR PRN #15 tab.rapdis 11/22/19 Unknown Rx cephALEXin [Keflex] 500 mg PO Q6HR #40 capsule 11/22/19 Unknown Rx metroNIDAZOLE [Flagyl] 500 mg PO Q12HR #14 tab 11/22/19 Unknown Rx traMADoL [Ultram 50 MG tab] 50 mg PO Q6HR PRN #10 tablet 11/22/19 Unknown Rx Ibuprofen [Motrin 800 MG tab] 800 mg PO Q8HR PRN #21 tablet 05/20/20 Unknown Rx Ondansetron [Zofran Odt] 4 mg PO Q8HR #15 tab.rapdis 05/20/20 Unknown Rx traMADoL [Ultram 50 MG tab] 50 mg PO Q6HR PRN #10 tablet 05/20/20 Unknown Rx Albuterol Sulfate [Proventil Hfa] 2 puff IH Q4HR #1 hfa.aer.ad 09/19/20 Unknown Rx Benzonatate [Tessalon Perles] 100 mg PO Q8HR PRN #20 capsule 09/19/20 Unknown Rx predniSONE [Deltasone] 40 mg PO QDAY #10 tab 09/19/20 Unknown Rx Famotidine [Pepcid] 40 mg PO QHS #30 tablet 11/06/20 Unknown Rx Hyoscyamine Subl [Levsin Sl 0.125 0.125 mg SL Q6HR PRN #30 tab 11/06/20 Unknown Rx TAB] Ondansetron [Zofran Odt] 4 mg PO Q8HR #20 tab.rapdis 11/06/20 Unknown Rx Albuterol Mdi (or & Nicu Only) 2 puff IH QID PRN #8.5 gram 11/08/20 Unknown Rx [ProAir HFA Inhaler] predniSONE [Deltasone] 40 mg PO DAILY 5 Days #10 tablet 11/08/20 Unknown Rx Allergies Allergy/AdvReac Type Severity Reaction Status Date / Time No Known Allergies Allergy Verified 09/19/20 07:07 ED Review of Systems ROS: Stated complaint: MARISSA Other details as noted in HPI Constitutional: denies: chills, fever Eyes: denies: eye pain, eye discharge, vision change ENT: denies: ear pain, throat pain Respiratory: cough, wheezing Cardiovascular: denies: chest pain, palpitations Endocrine: no symptoms reported Gastrointestinal: denies: abdominal pain, nausea, diarrhea Genitourinary: denies: urgency, dysuria, discharge Musculoskeletal: denies: back pain, joint swelling, arthralgia Skin: denies: rash, lesions Neurological: denies: headache, weakness, paresthesias Psychiatric: denies: anxiety, depression Hematological/Lymphatic: denies: easy bleeding, easy bruising ED Past Medical Hx - Past Medical History Previous Medical History?: Yes Hx Asthma: Yes Additional medical history: sinus, Obesity/ALLERGICS - Surgical History Past Surgical History?: No - Social History Smoking Status: Never Smoker Substance Use Type: None - Medications Home Medications: Home Medications Medication Instructions Recorded Confirmed Last Taken Type Cetirizine HCl [Zyrtec] 10 mg PO DAILY 07/18/13 07/18/13 Unknown History Fluticasone Propionate [Flonase] 2 sprays NS QDAY #1 bottle 09/25/14 Unknown Rx Acetaminophen [Tylenol Arthritis] 650 mg PO Q6HR PRN #30 tablet.er 02/16/18 Unknown Rx Ibuprofen [Motrin] 600 mg PO Q8H PRN #30 tablet 02/16/18 Unknown Rx Ondansetron [Zofran Odt] 4 mg PO Q8HR PRN #10 tab.rapdis 03/17/18 Unknown Rx Dicyclomine [Bentyl] 10 mg PO BID #20 capsule 08/29/18 Unknown Rx Ondansetron [Zofran ODT TAB] 8 mg PO Q12HR #30 tab.rapdis 08/29/18 Unknown Rx Naproxen [Naprosyn] 500 mg PO BID #14 tablet 08/31/18 Unknown Rx 21/Iron Fu/Folic Acid 1 each PO DAILY #30 tablet 11/08/18 Unknown Rx [ Complete Caplet] Acetaminophen [Non-Aspirin Extra 500 mg PO Q6HR PRN #30 tablet 05/17/19 Unknown Rx Strength] Dicyclomine [Bentyl] 10 mg PO QID PRN #20 capsule 05/17/19 Unknown Rx Ibuprofen [Motrin] 600 mg PO Q8H PRN #30 tablet 05/17/19 Unknown Rx Pantoprazole [Protonix] 40 mg PO QDAY #30 tablet 07/16/19 Unknown Rx Famotidine [Pepcid] 40 mg PO QHS #30 tablet 08/29/19 Unknown Rx Polyethylene Glycol 3350 [Miralax] 7 gm PO DAILY PRN #1 powder 08/29/19 Unknown Rx Sucralfate [Carafate] 1 gm PO ACHS #21 tablet 08/29/19 Unknown Rx Famotidine [Pepcid] 20 mg PO BID #30 tablet 09/22/19 Unknown Rx Ondansetron [Zofran ODT TAB] 8 mg PO Q8HR #20 tab.rapdis 09/22/19 Unknown Rx Azithromycin [Zithromax Z-NELLI] 250 mg PO DAILY #6 tablet 11/06/19 Unknown Rx Ibuprofen [Motrin] 600 mg PO Q8H PRN #20 tablet 11/06/19 Unknown Rx Fluconazole (Nf) [Diflucan TAB] 150 mg PO ONCE #1 tablet 11/22/19 Unknown Rx Ibuprofen [Motrin 800 MG tab] 800 mg PO Q8HR PRN #24 tablet 11/22/19 Unknown Rx Ondansetron [Zofran ODT TAB] 4 mg PO Q6HR PRN #15 tab.rapdis 11/22/19 Unknown Rx cephALEXin [Keflex] 500 mg PO Q6HR #40 capsule 11/22/19 Unknown Rx metroNIDAZOLE [Flagyl] 500 mg PO Q12HR #14 tab 11/22/19 Unknown Rx traMADoL [Ultram 50 MG tab] 50 mg PO Q6HR PRN #10 tablet 11/22/19 Unknown Rx Ibuprofen [Motrin 800 MG tab] 800 mg PO Q8HR PRN #21 tablet 05/20/20 Unknown Rx Ondansetron [Zofran Odt] 4 mg PO Q8HR #15 tab.rapdis 05/20/20 Unknown Rx traMADoL [Ultram 50 MG tab] 50 mg PO Q6HR PRN #10 tablet 05/20/20 Unknown Rx Albuterol Sulfate [Proventil Hfa] 2 puff IH Q4HR #1 hfa.aer.ad 09/19/20 Unknown Rx Benzonatate [Tessalon Perles] 100 mg PO Q8HR PRN #20 capsule 09/19/20 Unknown Rx predniSONE [Deltasone] 40 mg PO QDAY #10 tab 09/19/20 Unknown Rx Famotidine [Pepcid] 40 mg PO QHS #30 tablet 11/06/20 Unknown Rx Hyoscyamine Subl [Levsin Sl 0.125 0.125 mg SL Q6HR PRN #30 tab 11/06/20 Unknown Rx TAB] Ondansetron [Zofran Odt] 4 mg PO Q8HR #20 tab.rapdis 11/06/20 Unknown Rx Albuterol Mdi (or & Nicu Only) 2 puff IH QID PRN #8.5 gram 11/08/20 Unknown Rx [ProAir HFA Inhaler] predniSONE [Deltasone] 40 mg PO DAILY 5 Days #10 tablet 11/08/20 Unknown Rx ED Physical Exam - General Limitations: No Limitations General appearance: alert, in no apparent distress - Head Head exam: Present: atraumatic, normocephalic - Eye Eye exam: Present: PERRL, EOMI Pupils: Present: normal accommodation - ENT ENT exam: Present: normal exam, normal orophraynx, mucous membranes moist, TM's normal bilaterally, normal external ear exam - Neck Neck exam: Present: normal inspection, full ROM. Absent: tenderness, lymphadenopathy, thyromegaly - Respiratory Respiratory exam: Present: normal lung sounds bilaterally. Absent: respiratory distress, wheezes, stridor, chest wall tenderness - Cardiovascular Cardiovascular Exam: Present: regular rate, normal rhythm, normal heart sounds. Absent: systolic murmur, diastolic murmur, rubs, gallop - GI/Abdominal GI/Abdominal exam: Present: soft, normal bowel sounds. Absent: distended, tenderness, guarding, rebound, rigid, bruit, hernia - Rectal Rectal exam: Present: deferred - Extremities Exam Extremities exam: Present: normal inspection, full ROM. Absent: tenderness - Back Exam Back exam: Present: normal inspection, full ROM. Absent: tenderness, CVA tenderness (R), CVA tenderness (L) - Neurological Exam Neurological exam: Present: alert, oriented X3, CN II-XII intact, normal gait - Psychiatric Psychiatric exam: Present: normal affect, normal mood - Skin Skin exam: Present: warm, dry, intact, normal color ED Course Vital Signs 11/08/20 01:59 Temperature 98.5 F Pulse Rate 95 H Blood Pressure 144/74 O2 Sat by Pulse 100 Oximetry ED Medical Decision Making - Medical Decision Making There is no wheezing no stridor no respiratory distress at this time. Plan refill albuterol inhaler. Prednisone short burst. Follow-up with primary care doctor as scheduled. Patient verbalized agreement and understanding with discharge plan. Patient DC'd home in stable condition at this time. Critical care attestation.: If time is entered above; I have spent that time in minutes in the direct care of this critically ill patient, excluding procedure time. ED Disposition Clinical Impression: Asthma Qualifiers: Asthma severity: mild Asthma persistence: intermittent Asthma complication type: with acute exacerbation Qualified Code(s): J45.21 - Mild intermittent asthma with (acute) exacerbation Disposition: DC-01 TO HOME OR SELFCARE Is pt being admited?: No Does the pt Need Aspirin: No Condition: Stable Instructions: Asthma (ED), Asthma, Adult Prescriptions: predniSONE [Deltasone] 40 mg PO DAILY 5 Days #10 tablet Albuterol Mdi (or & Nicu Only) [ProAir HFA Inhaler] 2 puff IH QID PRN #8.5 gram PRN Reason: Shortness Of Breath Referrals: [facility]N [facility]IL[facility] MD [Staff Physician] - 3-5 Days Forms: Work/School Release Form(ED) Time of Disposition: 02:10
== END 2020-11-08 02:25 | disposition home or self-care (01) ==
LOC: ED 01:49
DX: J45.909 Unspecified asthma, uncomplicated (principal); Z79.899 Other long term (current) drug therapy
CPT/HCPCS: 99281

== ENCOUNTER 2020-11-26 14:41 | Emergency (ER) | payer SELFPAY ==
[2020-11-26 14:52] VITALS: BP 156/92
[2020-11-26] MEDS ORDERED: PROMETHAZINE 25 MG TAB PO ONE (15:07)
[2020-11-26] MEDS ORDERED: BUTALB/ACETAMINOPHEN/CAFFEINE TAB PO ONE (15:07)
--- NOTE | 2020-11-26 15:28 | Emergency Department Report ---
ED Headache HPI - General Chief Complaint: Headache Stated Complaint: POSS HYPERTENSION Time Seen by Provider: 11/26/20 15:07 - History of Present Illness Initial Comments: 19-year-old female with a history of obesity, asthma and bronchitis presents to the ER today with complaints of bitemporal headache. She states has been constant for the past 3 days. She states that over the past 3 days she has vomited twice and she has been nauseous. She denies any head injury. She states that she has tried multiple gylm-gsr-pfmcaxb medications without relief. She states that she even took one of her mother's blood pressure medication because she thought it could be related to her blood pressure. She denies history of hypertension. She states that she called her primary care doctor's office today and told her it could be possibly sinus infection. She reports ear pain and sore throat but denies any rhinorrhea, nasal congestion, or cough. Denies any fever or chills. She denies any neck pain. Denies any apparent ill contacts or recent travel. Her last menstrual cycle was November 18. Timing/Duration: constant (Gradual onset), other (3 days ) Quality: moderate Head Injury Location: temporal Recent Head Trauma: no recent headache/trauma Modifying Factors: improves with: other (None) Associated Symptoms: nausea/vomiting Allergies/Adverse Reactions: Allergies No Known Allergies Allergy (Verified 09/19/20 07:07) Home Medications: Ambulatory Orders Pantoprazole [Protonix] 40 mg PO QDAY #30 tablet 07/16/19 Albuterol Sulfate [Proventil Hfa] 2 puff IH Q4HR #1 hfa.aer.ad 09/19/20 Famotidine [Pepcid] 40 mg PO QHS #30 tablet 11/06/20 Albuterol Mdi (or & Nicu Only) [ProAir HFA Inhaler] 2 puff IH QID PRN #8.5 gram 11/08/20 Amoxicillin/Potassium Clav [Augmentin 875-125 Tablet] 1 each PO BID #14 tablet 11/26/20 Butalb/Acetamin/Caff 50-325-40 [Fioricet 50-325-40] 1 each PO Q4H PRN #12 tablet 11/26/20 Promethazine [Phenergan] 25 mg PO Q6HR PRN #12 tab 11/26/20 ED Review of Systems ROS: Stated complaint: POSS HYPERTENSION Other details as noted in HPI Comment: All other systems reviewed and negative Constitutional: denies: chills, fever Eyes: denies: eye pain, eye discharge, vision change ENT: ear pain, throat pain Respiratory: denies: cough, orthopnea, shortness of breath, SOB with exertion, SOB at rest, wheezing Cardiovascular: denies: chest pain, palpitations Endocrine: no symptoms reported Gastrointestinal: nausea, vomiting. denies: abdominal pain, diarrhea Genitourinary: denies: urgency, dysuria, discharge Musculoskeletal: denies: back pain, joint swelling, arthralgia Skin: denies: rash, lesions Neurological: headache. denies: weakness, numbness, paresthesias, confusion, abnormal gait, vertigo Psychiatric: denies: anxiety, depression Hematological/Lymphatic: as per HPI ED Past Medical Hx - Past Medical History Hx Asthma: Yes Additional medical history: sinus, Obesity/ALLERGICS - Surgical History Past Surgical History?: No - Social History Smoking Status: Never Smoker Substance Use Type: None - Medications Home Medications: Home Medications Medication Instructions Recorded Confirmed Last Taken Type Pantoprazole [Protonix] 40 mg PO QDAY #30 tablet 07/16/19 Unknown Rx Albuterol Sulfate [Proventil Hfa] 2 puff IH Q4HR #1 hfa.aer.ad 09/19/20 Unknown Rx Famotidine [Pepcid] 40 mg PO QHS #30 tablet 11/06/20 Unknown Rx Albuterol Mdi (or & Nicu Only) 2 puff IH QID PRN #8.5 gram 11/08/20 Unknown Rx [ProAir HFA Inhaler] Amoxicillin/Potassium Clav 1 each PO BID #14 tablet 11/26/20 Unknown Rx [Augmentin 875-125 Tablet] Butalb/Acetamin/Caff 50-325-40 1 each PO Q4H PRN #12 tablet 11/26/20 Unknown Rx [Fioricet 50-325-40] Promethazine [Phenergan] 25 mg PO Q6HR PRN #12 tab 11/26/20 Unknown Rx ED Physical Exam - General Limitations: No Limitations General appearance: alert, in no apparent distress, anxious, obese - Head Head exam: Present: atraumatic, normocephalic, normal inspection - Eye Eye exam: Present: normal appearance, PERRL, EOMI Pupils: Present: normal accommodation - ENT ENT exam: Present: normal exam, mucous membranes moist, other (+frontal sinus tenderness) - Expanded ENT Exam Expanded TM/Canal exam: Erythema: Left TM, Effusion: Right TM, Left TM Throat exam: Positive: tonsillar erythema. Negative: tonsillomegaly, tonsillar exudate, R peritonsillar mass, L peritonsillar mass - Respiratory Respiratory exam: Present: normal lung sounds bilaterally. Absent: respiratory distress - Cardiovascular Cardiovascular Exam: Present: regular rate, normal rhythm, normal heart sounds - Neurological Exam Neurological exam: Present: alert, oriented X3, CN II-XII intact, normal gait - Psychiatric Psychiatric exam: Present: normal affect, anxious (tearful) - Skin Skin exam: Present: intact ED Course Vital Signs 11/26/20 11/26/20 11/26/20 14:49 16:23 16:43 Temperature 98.5 F Pulse Rate 109 H Respiratory 18 16 16 Rate Blood Pressure 156/92 O2 Sat by Pulse 100 Oximetry ED Medical Decision Making - Medical Decision Making The patient presented to the emergency department with a headache. The patient is resting comfortably and is alert, talkative, interactive and in no distress. The patient appears well and has been observed scrolling on her phone during stay. The repeat examination is unremarkable and benign. The patient is neurologically intact, has a normal mental status, and is ambulatory in the ER. The history, exam, diagnostic testing and the patient's current condition does not suggest meningitis, stroke, sepsis, subarachnoid hemorrhage, intracranial bleeding, encephalitis, temporal arteritis or other significant pathology to warrant further testing, continued ED treatment, admission, neurological consultation or other specialist evaluation at this point. The patient's condition is stable and appropriate for discharge. The patient will pursue further outpatient evaluation with the primary care physician. Critical care attestation.: If time is entered above; I have spent that time in minutes in the direct care of this critically ill patient, excluding procedure time. ED Disposition Clinical Impression: Sinusitis, Headache, Left otitis media Disposition: -01 TO HOME OR SELFCARE Is pt being admited?: No Does the pt Need Aspirin: No Condition: Stable Instructions: Otitis Media, Adult, Goqv-zu-Gzbj, Sinusitis, Adult, Xbfz-gb-Occw Additional Instructions: Take the medications as prescribed. Continue claritin,and flonase. Follow up with your PCP this week. Return to ED if your symptoms changes or worsens in any way. Prescriptions: Amoxicillin/Potassium Clav [Augmentin 875-125 Tablet] 1 each PO BID #14 tablet Butalb/Acetamin/Caff 50-325-40 [Fioricet 50-325-40] 1 each PO Q4H PRN #12 tablet PRN Reason: Headache Promethazine [Phenergan] 25 mg PO Q6HR PRN #12 tab PRN Reason: Nausea Referrals: PRIMARY CARE,MD [Primary Care Provider] - 3-5 Days Forms: Work/School Release Form(ED) Time of Disposition: 16:38
== END 2020-11-26 16:50 | disposition home or self-care (01) ==
LOC: ED 14:41
DX: H66.92 Otitis media, unspecified, left ear (principal); J32.9 Chronic sinusitis, unspecified; R51.9 Headache, unspecified; J45.909 Unspecified asthma, uncomplicated; E66.9 Obesity, unspecified; Z68.43 Body mass index [BMI] 50.0-59.9, adult; Z79.899 Other long term (current) drug therapy
CPT/HCPCS: 99282; Q0169

== ENCOUNTER 2021-01-07 20:25 | Emergency (ER) | payer SELFPAY ==
[2021-01-07] MEDS ORDERED: methylPREDNISolone Sod Succinate 125 MG/2 ML INJ IV ONE (21:17)
[2021-01-07] MEDS ORDERED: IPRATROPIUM/ALBUTEROL SULFATE 3 ML AMPUL.NEB IH ONE (21:17)
[2021-01-07] MEDS ORDERED: ALBUTEROL 2.5 MG/3 ML NEBU IH ONE (21:17)
[2021-01-07] MEDS ORDERED: MAGNESIUM SULFATE 2 GM/50 ML BAG IV ONE (21:18)
[2021-01-07] MEDS ORDERED: SODIUM CHLORIDE 0.9% 1000 ML 1,000 ML IV ONE (21:21)
--- NOTE | 2021-01-07 21:21 | Emergency Department Report ---
ED Shortness of Breath HPI - General Chief Complaint: Adult Asthma Stated Complaint: ASTHMA/NOSE HURTS Source: patient Mode of arrival: Ambulatory Limitations: No Limitations - History of Present Illness Initial Comments: Patient is a 20-year-old -Iranian female with a history of morbid obesity and asthma who presents to the ED with complaint of acute onset persistent shortness of breath, dry cough and chest tightness for the last 2 hours. Patient states that she last used her albuterol inhaler 2 hours ago and used multiple times until the medication ran out and since then shortness of breath, wheezing and cough have worsened. Patient states that her symptoms are typical of her chronic asthma attacks. Patient denies dizziness, syncope, chest pain, nausea, vomiting, fever, chills, abdominal pain, neck pain, sore throat, headache, seizures, diarrhea, lightheadedness or change in vision. MD Complaint: shortness of breath, cough, "asthma attack" -: Sudden, hour(s) (2) Severity: severe Pain Scale: 7 Quality: other (Tightness) Consistency: constant Improves With: nothing Worsens With: nothing Known History Of: asthma Context: recent URI, anxiety Associated Symptoms: denies other symptoms, chest pain (tightness), cough Treatments Prior to Arrival: bronchodilator - Related Data Home Oxygen Therapy: No Previous Rx's Medication Instructions Recorded Last Taken Type Pantoprazole [Protonix] 40 mg PO QDAY #30 tablet 07/16/19 Unknown Rx Albuterol Sulfate [Proventil Hfa] 2 puff IH Q4HR #1 hfa.aer.ad 09/19/20 Unknown Rx Famotidine [Pepcid] 40 mg PO QHS #30 tablet 11/06/20 Unknown Rx Amoxicillin/Potassium Clav 1 each PO BID #14 tablet 11/26/20 Unknown Rx [Augmentin 875-125 Tablet] Butalb/Acetamin/Caff 50-325-40 1 each PO Q4H PRN #12 tablet 11/26/20 Unknown Rx [Fioricet 50-325-40] Promethazine [Phenergan] 25 mg PO Q6HR PRN #12 tab 11/26/20 Unknown Rx Albuterol Mdi (or & Nicu Only) 2 puff IH QID PRN #8.5 gram 01/07/21 Unknown Rx [ProAir HFA Inhaler] Benzonatate [Tessalon Perles] 100 mg PO Q8HR #30 capsule 01/07/21 Unknown Rx hydrOXYzine PAMOATE [Vistaril] 25 mg PO Q6HR PRN #30 capsule 01/07/21 Unknown Rx methylPREDNISolone [Medrol 4MG 4 mg PO 21 #21 tab.ds.pk 01/07/21 Unknown Rx DOSEPAK (21 tabs)] Allergies Allergy/AdvReac Type Severity Reaction Status Date / Time No Known Allergies Allergy Verified 09/19/20 07:07 ED Review of Systems ROS: Stated complaint: ASTHMA/NOSE HURTS Other details as noted in HPI Constitutional: denies: chills, fever Eyes: denies: eye pain, eye discharge, vision change ENT: congestion. denies: ear pain, throat pain Respiratory: cough, shortness of breath, wheezing Cardiovascular: denies: chest pain, palpitations Endocrine: no symptoms reported Gastrointestinal: denies: abdominal pain, nausea, diarrhea Genitourinary: denies: urgency, dysuria, discharge Musculoskeletal: denies: back pain, joint swelling, arthralgia Skin: denies: rash, lesions Neurological: denies: headache, weakness, paresthesias Psychiatric: anxiety. denies: depression Hematological/Lymphatic: denies: easy bleeding, easy bruising ED Past Medical Hx - Past Medical History Previous Medical History?: Yes Hx Asthma: Yes Additional medical history: sinus, Obesity/ALLERGICS - Surgical History Past Surgical History?: No - Social History Smoking Status: Never Smoker Substance Use Type: None - Medications Home Medications: Home Medications Medication Instructions Recorded Confirmed Last Taken Type Pantoprazole [Protonix] 40 mg PO QDAY #30 tablet 07/16/19 Unknown Rx Albuterol Sulfate [Proventil Hfa] 2 puff IH Q4HR #1 hfa.aer.ad 09/19/20 Unknown Rx Famotidine [Pepcid] 40 mg PO QHS #30 tablet 11/06/20 Unknown Rx Amoxicillin/Potassium Clav 1 each PO BID #14 tablet 11/26/20 Unknown Rx [Augmentin 875-125 Tablet] Butalb/Acetamin/Caff 50-325-40 1 each PO Q4H PRN #12 tablet 11/26/20 Unknown Rx [Fioricet 50-325-40] Promethazine [Phenergan] 25 mg PO Q6HR PRN #12 tab 11/26/20 Unknown Rx Albuterol Mdi (or & Nicu Only) 2 puff IH QID PRN #8.5 gram 01/07/21 Unknown Rx [ProAir HFA Inhaler] Benzonatate [Tessalon Perles] 100 mg PO Q8HR #30 capsule 01/07/21 Unknown Rx hydrOXYzine PAMOATE [Vistaril] 25 mg PO Q6HR PRN #30 capsule 01/07/21 Unknown Rx methylPREDNISolone [Medrol 4MG 4 mg PO 21 #21 tab.ds.pk 01/07/21 Unknown Rx DOSEPAK (21 tabs)] ED Physical Exam - General Limitations: No Limitations General appearance: alert, in no apparent distress, anxious, obese - Head Head exam: Present: atraumatic, normocephalic, normal inspection - Eye Eye exam: Present: normal appearance, PERRL, EOMI Pupils: Present: normal accommodation - ENT ENT exam: Present: normal exam, normal orophraynx, mucous membranes moist, TM's normal bilaterally, normal external ear exam - Neck Neck exam: Present: normal inspection, full ROM - Respiratory Respiratory exam: Present: wheezes (Diffuse coarse wheezes throughout). Absent: respiratory distress, chest wall tenderness, accessory muscle use, decreased breath sounds - Cardiovascular Cardiovascular Exam: Present: normal rhythm, tachycardia, normal heart sounds. Absent: systolic murmur, diastolic murmur, rubs, gallop - GI/Abdominal GI/Abdominal exam: Present: soft, normal bowel sounds. Absent: tenderness, guarding, hyperactive bowel sounds, hypoactive bowel sounds, organomegaly - Extremities Exam Extremities exam: Present: normal inspection, full ROM, normal capillary refill - Back Exam Back exam: Present: normal inspection, full ROM. Absent: tenderness, CVA tenderness (R), CVA tenderness (L), muscle spasm, paraspinal tenderness, vertebral tenderness - Neurological Exam Neurological exam: Present: alert, oriented X3, CN II-XII intact, normal gait, reflexes normal - Psychiatric Psychiatric exam: Present: normal affect, normal mood, anxious - Skin Skin exam: Present: warm, dry, intact, normal color. Absent: rash ED Course Vital Signs 01/07/21 01/07/21 01/07/21 21:15 21:51 22:19 Temperature 98.9 F Pulse Rate 129 H Pulse Rate [ 85 Anterior Bilateral] Respiratory 28 H 18 Rate Respiratory 20 Rate [Anterior Bilateral] Blood Pressure 132/86 [Right] O2 Sat by Pulse 99 Oximetry ED Medical Decision Making - Radiology Data Radiology results: report reviewed, image reviewed [facility] [address] [place] [address] XRay Report Signed Patient: DUNIA WATT MR#: [id number] : 2000 Acct:[id number] Age/Sex: 20 / F ADM Date: 01/07/21 Loc: ED Attending Dr: Ordering Physician: KYLAH STEPHENS Date of Service: 01/07/21 Procedure(s): XR chest 1V ap Accession Number(s): [id number] cc: KYLAH STEPHENS Fluoro Time In Minutes: CHEST 1 VIEW 01/07/2021 9:50 PM INDICATION / CLINICAL INFORMATION: Dyspnea, asthma. COMPARISON: 09/19/2020. FINDINGS: SUPPORT DEVICES: None. HEART / MEDIASTINUM: Stable. LUNGS / PLEURA: There are low lung volumes. No significant pulmonary or pleural abnormality. No pneumothorax. ADDITIONAL FINDINGS: No significant additional findings. IMPRESSION: Low lung volumes without acute cardiopulmonary abnormality. Signer Name: Deya Collins MD Signed: 01/07/2021 9:58 PM Workstation Name: [id number] Transcribed By: SS Dictated By: DEYA COLLINS Electronically Authenticated By: DEYA COLLINS Signed Date/Time: 01/07/212157 DD/ 57 TD/TT: - Medical Decision Making This is a 20-year-old -Iranian female with a history of morbid obesity and asthma who presents to the ED with complaint of acute onset persistent shortness of breath, dry cough and chest tightness for the last 2 hours. Patient states that she last used her albuterol inhaler 2 hours ago and drain out and since then shortness of breath, wheezing and cough have worsened. Patient states that her symptoms are typical of her chronic asthma attacks. In the ED, patient is alert and oriented x3 and is not in distress but anxious and tachycardic following multiple albuterol inhaler treatment prior to arrival in the ED. Patient is however febrile with normal blood pressure. Chest x-ray shows no acute cardiopulmonary abnormalities or pneumonitis. Patient received DuoNeb treatment, Solu-Medrol, magnesium sulfate 2 g IV and normal saline 1 L IV bolus x1. On reevaluation, the wheezing resolved, tachycardia improved significantly after the DuoNeb treatment. Patient was therefore discharged home on medications and advised to follow-up with her primary care physician in 3 to 5 days for reevaluation. Patient is advised return to the ED immediately if symptoms get worse. - Differential Diagnosis Asthma; bronchitis; pneumonia; anxiety; URI Critical care attestation.: If time is entered above; I have spent that time in minutes in the direct care of this critically ill patient, excluding procedure time. ED Disposition Clinical Impression: Acute bronchitis with asthma with acute exacerbation, Shortness of breath, Anxiety as acute reaction to exceptional stress Disposition: DC-01 TO HOME OR SELFCARE Is pt being admited?: No Does the pt Need Aspirin: No Condition: Stable Instructions: Acute Bronchitis (ED), Shortness of Breath, Adult, Wimo-js-Vjsi, Cough, Adult, Vqbm-xo-Gjzb, Asthma, Adult, Tuvu-ft-Ksxd, Acute Bronchitis, Adult, Crsy-bh-Vwgc Additional Instructions: Chest x-ray shows no acute cardiopulmonary abnormalities or pneumonitis. Your symptoms are due to acute asthma exacerbations. Therefore take medications with food, drink plenty of fluids and follow-up with your primary care physician in 3 to 5 days for reevaluation. Return to the ED immediately if symptoms get worse. Prescriptions: methylPREDNISolone [Medrol 4MG DOSEPAK (21 tabs)] 4 mg PO 21 #21 tab.ds.pk Albuterol Mdi (or & Nicu Only) [ProAir HFA Inhaler] 2 puff IH QID PRN #8.5 gram PRN Reason: Shortness Of Breath Benzonatate [Tessalon Perles] 100 mg PO Q8HR #30 capsule hydrOXYzine PAMOATE [Vistaril] 25 mg PO Q6HR PRN #30 capsule PRN Reason: Anxiety Referrals: [facility] [Provider Group] - 3-5 Days Time of Disposition: 23:38 Print Language: HUNGARIAN
--- NOTE | 2021-01-07 22:03 | XRay Report ---
CHEST 1 VIEW 01/07/2021 9:50 PM INDICATION / CLINICAL INFORMATION: Dyspnea, asthma. COMPARISON: 09/19/2020. FINDINGS: SUPPORT DEVICES: None. HEART / MEDIASTINUM: Stable. LUNGS / PLEURA: There are low lung volumes. No significant pulmonary or pleural abnormality. No pneum othorax. ADDITIONAL FINDINGS: No significant additional findings. IMPRESSION: Low lung volumes without acute cardiopulmonary abnormality. Signer Name: James Collins MD Signed: 01/07/2021 9:58 PM Workstation Name: [id number]
[2021-01-07 23:37] VITALS: BP 135/75
== END 2021-01-07 23:47 | disposition home or self-care (01) ==
LOC: ED 20:25
DX: J45.901 Unspecified asthma with (acute) exacerbation (principal); F41.9 Anxiety disorder, unspecified; J45.909 Unspecified asthma, uncomplicated; Z79.899 Other long term (current) drug therapy
CPT/HCPCS: 71045; 94640; 96374; 96375; 99283; J2930; J3475; J7030; 94644

== ENCOUNTER 2021-03-15 22:57 | Emergency (ER) | payer MEDICAID, SELFPAY ==
[2021-03-16] MEDS ORDERED: DICYCLOMINE 20 MG TAB PO ONE (00:24)
[2021-03-16] MEDS ORDERED: FAMOTIDINE 20 MG TAB PO ONE (00:24)
[2021-03-16] MEDS ORDERED: ONDANSETRON 4 MG ODT TAB PO ONE (00:24)
[2021-03-16 01:01] VITALS: BP 155/78
[2021-03-16 01:17] LABS: Hematocrit 35.8 % (30.3-42.9); Hemoglobin 11.5 gm/dl (10.1-14.3); Mean Corpuscular HGB Conc 32 % (30-34); Mean Corpuscular Volume 90 fl (79-97); Platelet Count 305 K/mm3 (140-440); Red Blood Count 3.99 M/mm3 (3.65-5.03); Red Cell Distribution Width 14.1 % (13.2-15.2)
[2021-03-16 01:23] LABS: Alanine Aminotransferase 16 units/L (7-56); Albumin 4.4 g/dL (3.9-5); Blood Urea Nitrogen 8 mg/dL (7-17); Calcium 9.4 mg/dL (8.4-10.2); Hemolysis Index 3
[2021-03-16 01:31] LABS: BUN/Creatinine Ratio 11
[2021-03-16 01:45] LABS: Bacteria,Urine 1+ /HPF (Negative); Calcium Oxalate Crystals,Urine 2+; Mucus,Urine FEW /HPF
[2021-03-16 01:46] LABS: Bilirubin,Urine NEG (Negative); Blood,Urine NEG (Negative); Color,Urine Yellow (Yellow)
--- NOTE | 2021-03-16 02:09 | Emergency Department Report ---
ED Abdominal Pain HPI - General Chief Complaint: Abdominal Pain Stated Complaint: STOMACH PAIN Source: patient Mode of arrival: Ambulatory Limitations: No Limitations - History of Present Illness Initial Comments: Patient is a A1 20-year-old -Filipino female with a history of asthma who presents to the ED with complaint of acute onset persistent intermittent diffuse abdominal pain and nausea and vomiting for the last 1 month. Patient states that her LMP was 2 months ago and that this month years she has not had her menstrual cycle although she adds that her cycles are irregular. Patient denies dizziness, syncope, diarrhea, chest pain, shortness of breath, fever, chills, dysuria, urinary frequency and urgency, vaginal bleeding, vaginal discharge, low back pain, cough or sore throat. MD Complaint: abdominal pain, other -: Sudden (Nausea and vomiting), month(s) (1 month) Location: epigastric Migration to: no migration Severity: moderate Severity scale (0 -10): 5 Quality: cramping, aching Consistency: intermittent Improves With: nothing Worsens With: nothing Associated Symptoms: denies other symptoms, nausea, vomiting. denies: diarrhea, fever, chills, constipation, dysuria, hematemesis, hematochezia, melena, hematuria, anorexia, other - Related Data LMP Date: 01/19/21 Previous Rx's Medication Instructions Recorded Last Taken Type Pantoprazole [Protonix] 40 mg PO QDAY #30 tablet 07/16/19 Unknown Rx Albuterol Sulfate [Proventil Hfa] 2 puff IH Q4HR #1 hfa.aer.ad 09/19/20 Unknown Rx Famotidine [Pepcid] 40 mg PO QHS #30 tablet 11/06/20 Unknown Rx Amoxicillin/Potassium Clav 1 each PO BID #14 tablet 11/26/20 Unknown Rx [Augmentin 875-125 Tablet] Butalb/Acetamin/Caff 50-325-40 1 each PO Q4H PRN #12 tablet 11/26/20 Unknown Rx [Fioricet 50-325-40] Promethazine [Phenergan] 25 mg PO Q6HR PRN #12 tab 11/26/20 Unknown Rx Albuterol Mdi (or & Nicu Only) 2 puff IH QID PRN #8.5 gram 01/07/21 Unknown Rx [ProAir HFA Inhaler] Benzonatate [Tessalon Perles] 100 mg PO Q8HR #30 capsule 01/07/21 Unknown Rx hydrOXYzine PAMOATE [Vistaril] 25 mg PO Q6HR PRN #30 capsule 01/07/21 Unknown Rx methylPREDNISolone [Medrol 4MG 4 mg PO 21 #21 tab.ds.pk 01/07/21 Unknown Rx DOSEPAK (21 tabs)] Dicyclomine [Bentyl] 20 mg PO Q6H PRN #30 tablet 03/16/21 Unknown Rx Famotidine [Pepcid] 20 mg PO BID #60 tablet 03/16/21 Unknown Rx Ondansetron [Zofran Odt] 4 mg PO Q6HR PRN #20 tab.rapdis 03/16/21 Unknown Rx Allergies Allergy/AdvReac Type Severity Reaction Status Date / Time No Known Allergies Allergy Verified 09/19/20 07:07 ED Review of Systems ROS: Stated complaint: STOMACH PAIN Other details as noted in HPI Constitutional: denies: chills, fever Eyes: denies: eye pain, eye discharge, vision change ENT: denies: ear pain, throat pain Respiratory: denies: cough, shortness of breath, wheezing Cardiovascular: denies: chest pain, palpitations Endocrine: no symptoms reported Gastrointestinal: abdominal pain, nausea, vomiting. denies: diarrhea Genitourinary: denies: urgency, dysuria, discharge Musculoskeletal: denies: back pain, joint swelling, arthralgia Skin: denies: rash, lesions Neurological: denies: headache, weakness, paresthesias Psychiatric: denies: anxiety, depression Hematological/Lymphatic: denies: easy bleeding, easy bruising ED Past Medical Hx - Past Medical History Previous Medical History?: Yes Hx Asthma: Yes Additional medical history: sinus, Obesity/ALLERGICS - Surgical History Past Surgical History?: Yes - Social History Smoking Status: Never Smoker Substance Use Type: None - Medications Home Medications: Home Medications Medication Instructions Recorded Confirmed Last Taken Type Pantoprazole [Protonix] 40 mg PO QDAY #30 tablet 07/16/19 Unknown Rx Albuterol Sulfate [Proventil Hfa] 2 puff IH Q4HR #1 hfa.aer.ad 09/19/20 Unknown Rx Famotidine [Pepcid] 40 mg PO QHS #30 tablet 11/06/20 Unknown Rx Amoxicillin/Potassium Clav 1 each PO BID #14 tablet 11/26/20 Unknown Rx [Augmentin 875-125 Tablet] Butalb/Acetamin/Caff 50-325-40 1 each PO Q4H PRN #12 tablet 11/26/20 Unknown Rx [Fioricet 50-325-40] Promethazine [Phenergan] 25 mg PO Q6HR PRN #12 tab 11/26/20 Unknown Rx Albuterol Mdi (or & Nicu Only) 2 puff IH QID PRN #8.5 gram 01/07/21 Unknown Rx [ProAir HFA Inhaler] Benzonatate [Tessalon Perles] 100 mg PO Q8HR #30 capsule 01/07/21 Unknown Rx hydrOXYzine PAMOATE [Vistaril] 25 mg PO Q6HR PRN #30 capsule 01/07/21 Unknown Rx methylPREDNISolone [Medrol 4MG 4 mg PO 21 #21 tab.ds.pk 01/07/21 Unknown Rx DOSEPAK (21 tabs)] Dicyclomine [Bentyl] 20 mg PO Q6H PRN #30 tablet 03/16/21 Unknown Rx Famotidine [Pepcid] 20 mg PO BID #60 tablet 03/16/21 Unknown Rx Ondansetron [Zofran Odt] 4 mg PO Q6HR PRN #20 tab.rapdis 03/16/21 Unknown Rx ED Physical Exam - General Limitations: No Limitations General appearance: alert, in no apparent distress - Head Head exam: Present: atraumatic, normocephalic, normal inspection - Eye Eye exam: Present: normal appearance, PERRL, EOMI Pupils: Present: normal accommodation - ENT ENT exam: Present: normal exam, normal orophraynx, mucous membranes moist, TM's normal bilaterally, normal external ear exam - Neck Neck exam: Present: normal inspection, full ROM - Respiratory Respiratory exam: Present: normal lung sounds bilaterally. Absent: respiratory distress, wheezes, rales, stridor, chest wall tenderness, decreased breath sounds, prolonged expiratory - Cardiovascular Cardiovascular Exam: Present: regular rate, normal rhythm, normal heart sounds. Absent: systolic murmur, diastolic murmur, rubs, gallop - GI/Abdominal GI/Abdominal exam: Present: soft, normal bowel sounds. Absent: tenderness, guarding, rebound, hyperactive bowel sounds, hypoactive bowel sounds, organomegaly - Extremities Exam Extremities exam: Present: normal inspection, full ROM, normal capillary refill - Back Exam Back exam: Present: normal inspection, full ROM. Absent: tenderness, CVA tenderness (R), CVA tenderness (L), muscle spasm, paraspinal tenderness, vertebral tenderness - Neurological Exam Neurological exam: Present: alert, oriented X3, CN II-XII intact, normal gait, reflexes normal - Psychiatric Psychiatric exam: Present: normal affect, normal mood, anxious - Skin Skin exam: Present: warm, dry, intact, normal color. Absent: rash ED Course Vital Signs 03/15/21 23:56 Temperature 98.3 F Pulse Rate 83 Respiratory 18 Rate Blood Pressure 155/78 O2 Sat by Pulse 96 Oximetry ED Medical Decision Making - Lab Data Result diagrams: 03/16/21 00:33 03/16/21 00:33 - Medical Decision Making This is a A1 20-year-old -Filipino female with a history of asthma who presents to the ED with complaint of acute onset persistent intermittent diffuse abdominal pain and nausea and vomiting for the last 1 month. Patient states that her LMP was 2 months ago and that this month years she has not had her menstrual cycle although she adds that her cycles are irregular. In the ED, patient is alert and oriented x3 and is not in any distress. Patient is hemodynamically stable. Patient is currently on azithromycin for acute upper respiratory infection and sinusitis. Lab test results were reviewed and are all nonactionable except for mild leukocytosis of 11,900. All other lab test results are nonactionable including urinalysis. Patient was discharged home on medications for suspected GERD complications and was advised to follow-up with her primary care physician in 5 to 7 days for reevaluation or return to the ED immediately if symptoms get worse. - Differential Diagnosis GERD; UTI; ; gastroenteritis Critical care attestation.: If time is entered above; I have spent that time in minutes in the direct care of this critically ill patient, excluding procedure time. ED Disposition Clinical Impression: Generalized abdominal pain, Nausea and vomiting in adult patient GERD (gastroesophageal reflux disease) Qualifiers: Esophagitis presence: esophagitis presence not specified Qualified Code(s): K21.9 - Gastro-esophageal reflux disease without esophagitis Disposition: TO HOME OR SELFCARE Is pt being admited?: No Does the pt Need Aspirin: No Condition: Stable Instructions: Abdominal Pain (ED), Abdominal Pain, Adult, [id number], Nausea and Vomiting, Adult, [id number], Gastroesophageal Reflux Disease, Adult, [id number] Additional Instructions: All lab test results were reviewed and are all nonactionable. Therefore take medications with food, drink plenty of fluids and follow-up with your primary care physician in 5 to 7 days for reevaluation. Return to the ED immediately if symptoms get worse. Prescriptions: Dicyclomine [Bentyl] 20 mg PO Q6H PRN #30 tablet PRN Reason: Abdominal pain Famotidine [Pepcid] 20 mg PO BID #60 tablet Ondansetron [Zofran Odt] 4 mg PO Q6HR PRN #20 tab.rapdis PRN Reason: Nausea Referrals: [facility] [Provider Group] - 3-5 Days Forms: Work/School Release Form(ED) Time of Disposition: 02:10 Print Language: ROMANIAN
[2021-03-16 07:06] LABS: Total Cells Counted 100
[2021-03-16 07:07] LABS: Anisocytosis 1+; Platelet Estimate Consistent w Auto
== END 2021-03-16 02:32 | disposition home or self-care (01) ==
LOC: ED 22:57
DX: K21.9 Gastro-esophageal reflux disease without esophagitis (principal); J45.909 Unspecified asthma, uncomplicated; E66.8 Other obesity; Z79.899 Other long term (current) drug therapy
CPT/HCPCS: 36415; 80053; 81001; 83690; 84703; 85007; 85025; 99283; Q0162

== ENCOUNTER 2021-04-02 16:08 | Emergency (ER) | payer SELFPAY ==
[2021-04-02 16:53] VITALS: BP 138/73
--- NOTE | 2021-04-02 17:03 | Emergency Department Report ---
Chief Complaint: Medical Clearance Stated Complaint: RX REFILL Time Seen by Provider: 04/02/21 16:53 - HPI History of Present Illness: Patient is a 20-year-old female presents emergency room for a prescription for vitamins. She states that she went to [facility] and could not find any vitamin so she reported to the emergency room for prescription for vitamins. she has an appointment with [facility] on Wednesday (04/04/21) at 8 AM. She denies any abdominal pain or vaginal bleeding. She states occasionally she feels morning sickness in the morning. She is currently drinking a Sprite without any difficulty. She states this is her first . PMHx asthma. No allergies to medications. Vitals are stable On exam: Non toxic appearing, no acute distress atraumatic, normocephalic normal appearance of the eyes, PERRL, EOMI, no periorbital edema or ecchymosis moist mucus membranes regular heart rate and rhythm, no gallops, no rubs, no murmurs breath sounds are clear bilaterally, no w/r/r, no respiratory distress, no accessory muscle use, no stridor No abdominal tenderness on exam, abdomen is soft, nondistended, no guarding, no rebound, rigidity A&O x4, no focal neuro deficit skin is warm, dry, intact Patient is presenting for a prescription for vitamins She denies any symptoms at all currently does states that occasionally she feels morning sickness She is tolerating p.o. intake without difficulty she has no abdominal tenderness or vaginal bleeding advised pt Please take a vitamin [id number], may get vitamins from any pharmacy including [facility], [facility], [facility], [facility]. Increase your water intake. May take gingerroot [id number]-[id number] to help with nausea. May also take meclizine/Antivert nmjx-hwc-jdyeiia to help with nausea. Follow- up with your ROOFER and please keep your appointment for Wednesday. Return to emergency room for any severe abdominal pain or vaginal bleeding or if unable to tolerate PO intake Medical screening examination performed and there is no threat to life or limb at this time Discussed strict return precautions with patient - Exam Vital Signs: Vital Signs 04/02/21 16:52 Temperature 98 F Pulse Rate 100 H Respiratory 16 Rate Blood Pressure 138/73 [Right] O2 Sat by Pulse 96 Oximetry MSE screening note: Focused history and physical exam performed. Due to findings the following was ordered: ED Disposition for MSE Clinical Impression: Encounter for medical screening examination Disposition: - TO HOME OR SELFCARE Is pt being admited?: No Does the pt Need Aspirin: No Condition: Stable Additional Instructions: Please take a vitamin [id number], may get vitamins from any pharmacy including [facility], [facility], [facility], [facility]. Increase your water intake. May take gingerroot [id number] to help with nausea. May also take meclizine/Antivert uqpn-eyo-titipae to help with nausea. Follow-up with your ROOFER and please keep your appointment for Wednesday. Return to emergency room for any severe abdominal pain or vaginal bleeding or if unable to tolerate PO intake Referrals: [facility] [Provider Group] - 2-3 Days Time of Disposition: 17:02 Print Language: KHMER
== END 2021-04-02 17:49 | disposition home or self-care (01) ==
LOC: ED 16:08
DX: Z00.00 Encounter for general adult medical examination without abnormal findings (principal); Z53.21 Procedure and treatment not carried out due to patient leaving prior to being seen by health care provider
CPT/HCPCS: 99281

== ENCOUNTER 2021-04-10 07:49 | Emergency (ER) | payer MEDICAID ==
[2021-04-10 08:56] VITALS: BP 138/96
[2021-04-10 11:33] LABS: Alanine Aminotransferase 20 units/L (7-56); Albumin 4.9 g/dL (3.9-5); Blood Urea Nitrogen 7 mg/dL (7-17); Calcium 10.4 mg/dL (8.4-10.2); Hemolysis Index 9
[2021-04-10 11:39] LABS: Hematocrit 38.1 % (30.3-42.9); Hemoglobin 12.5 gm/dl (10.1-14.3); Mean Corpuscular HGB Conc 33 % (30-34); Mean Corpuscular Volume 91 fl (79-97); Platelet Count 322 K/mm3 (140-440); Red Blood Count 4.21 M/mm3 (3.65-5.03); Red Cell Distribution Width 13.8 % (13.2-15.2)
[2021-04-10 11:40] LABS: BUN/Creatinine Ratio 14
[2021-04-10] MEDS ORDERED: ONDANSETRON 4 MG ODT TAB PO ONE (11:48)
--- NOTE | 2021-04-10 12:07 | Emergency Department Report ---
ED Abdominal Pain HPI - General Chief Complaint: Nausea/Vomiting/Diarrhea Stated Complaint: , CANT KEEP FOOD OR WATER DOWN 2 DAYS PUI?: No Time Seen by Provider: 04/10/21 08:57 Source: patient Mode of arrival: Ambulatory Limitations: No Limitations - History of Present Illness Initial Comments: Patient is a 20-year-old -[place]wegian female that comes to the emergency room [facility] told her she was . She comes in with nausea and vomiting. Patient is ambulatory, [id number]-[id number] nontoxic on arrival to [facility]. She denies any constipation or diarrhea. She denies any fever or chills. She denies any coughing. She reports her last menstrual cycle to be 2 months ago. She denies vaginal bleeding or discharge. She denies back pain or abdominal pain -: Gradual, days(s) Improves With: nothing Worsens With: nothing Associated Symptoms: nausea, vomiting - Related Data Previous Rx's Medication Instructions Recorded Last Taken Type Pantoprazole [Protonix] 40 mg PO QDAY #30 tablet 07/16/19 Unknown Rx Albuterol Sulfate [Proventil Hfa] 2 puff IH Q4HR #1 hfa.aer.ad 09/19/20 Unknown Rx Famotidine [Pepcid] 40 mg PO QHS #30 tablet 11/06/20 Unknown Rx Amoxicillin/Potassium Clav 1 each PO BID #14 tablet 11/26/20 Unknown Rx [Augmentin 875-125 Tablet] Butalb/Acetamin/Caff 50-325-40 1 each PO Q4H PRN #12 tablet 11/26/20 Unknown Rx [Fioricet 50-325-40] Promethazine [Phenergan] 25 mg PO Q6HR PRN #12 tab 11/26/20 Unknown Rx Albuterol Mdi (or & Nicu Only) 2 puff IH QID PRN #8.5 gram 01/07/21 Unknown Rx [ProAir HFA Inhaler] Benzonatate [Tessalon Perles] 100 mg PO Q8HR #30 capsule 01/07/21 Unknown Rx hydrOXYzine PAMOATE [Vistaril] 25 mg PO Q6HR PRN #30 capsule 01/07/21 Unknown Rx methylPREDNISolone [Medrol 4MG 4 mg PO 21 #21 tab.ds.pk 01/07/21 Unknown Rx DOSEPAK (21 tabs)] Dicyclomine [Bentyl] 20 mg PO Q6H PRN #30 tablet 03/16/21 Unknown Rx Famotidine [Pepcid] 20 mg PO BID #60 tablet 03/16/21 Unknown Rx Ondansetron [Zofran Odt] 4 mg PO Q6HR PRN #20 tab.rapdis 03/16/21 Unknown Rx Allergies Allergy/AdvReac Type Severity Reaction Status Date / Time SOME ANTIBOTIC Allergy Unknown Uncoded 04/10/21 08:53 ED Review of Systems ROS: Stated complaint: , CANT KEEP FOOD OR WATER DOWN 2 DAYS Other details as noted in HPI Comment: All other systems reviewed and negative ED Past Medical Hx - Past Medical History Previous Medical History?: Yes Hx Asthma: Yes Additional medical history: sinus, Obesity/ALLERGICS/ ANXIETY - Surgical History Past Surgical History?: No - Family History Family history: no significant - Social History Smoking Status: Never Smoker Substance Use Type: None - Medications Home Medications: Home Medications Medication Instructions Recorded Confirmed Last Taken Type Pantoprazole [Protonix] 40 mg PO QDAY #30 tablet 07/16/19 Unknown Rx Albuterol Sulfate [Proventil Hfa] 2 puff IH Q4HR #1 hfa.aer.ad 09/19/20 Unknown Rx Famotidine [Pepcid] 40 mg PO QHS #30 tablet 11/06/20 Unknown Rx Amoxicillin/Potassium Clav 1 each PO BID #14 tablet 11/26/20 Unknown Rx [Augmentin 875-125 Tablet] Butalb/Acetamin/Caff 50-325-40 1 each PO Q4H PRN #12 tablet 11/26/20 Unknown Rx [Fioricet 50-325-40] Promethazine [Phenergan] 25 mg PO Q6HR PRN #12 tab 11/26/20 Unknown Rx Albuterol Mdi (or & Nicu Only) 2 puff IH QID PRN #8.5 gram 01/07/21 Unknown Rx [ProAir HFA Inhaler] Benzonatate [Tessalon Perles] 100 mg PO Q8HR #30 capsule 01/07/21 Unknown Rx hydrOXYzine PAMOATE [Vistaril] 25 mg PO Q6HR PRN #30 capsule 01/07/21 Unknown Rx methylPREDNISolone [Medrol 4MG 4 mg PO 21 #21 tab.ds.pk 01/07/21 Unknown Rx DOSEPAK (21 tabs)] Dicyclomine [Bentyl] 20 mg PO Q6H PRN #30 tablet 03/16/21 Unknown Rx Famotidine [Pepcid] 20 mg PO BID #60 tablet 03/16/21 Unknown Rx Ondansetron [Zofran Odt] 4 mg PO Q6HR PRN #20 tab.rapdis 03/16/21 Unknown Rx ED Physical Exam - General Limitations: No Limitations General appearance: alert, in no apparent distress - Head Head exam: Present: atraumatic, normocephalic - Eye Eye exam: Present: normal appearance - ENT ENT exam: Present: mucous membranes moist - Neck Neck exam: Present: normal inspection - Respiratory Respiratory exam: Present: normal lung sounds bilaterally. Absent: respiratory distress - Cardiovascular Cardiovascular Exam: Present: regular rate, normal rhythm. Absent: systolic murmur, diastolic murmur, rubs, gallop - GI/Abdominal GI/Abdominal exam: Present: soft, normal bowel sounds - Extremities Exam Extremities exam: Present: normal inspection - Back Exam Back exam: Present: normal inspection - Neurological Exam Neurological exam: Present: alert, oriented X3 - Psychiatric Psychiatric exam: Present: normal affect, normal mood - Skin Skin exam: Present: warm, dry, intact, normal color. Absent: rash ED Course Vital Signs 04/10/21 08:54 Temperature 98.3 F Pulse Rate 90 Respiratory 18 Rate Blood Pressure 138/96 O2 Sat by Pulse 96 Oximetry ED Medical Decision Making - Lab Data Result diagrams: 04/10/21 10:53 04/10/21 10:55 - Medical Decision Making Labs 04/10/21 04/10/21 04/10/21 10:53 10:53 10:53 WBC 8.6 RBC 4.21 Hgb 12.5 Hct 38.1 MCV 91 MCH 30 MCHC 33 RDW 13.8 Plt Count 322 Sodium Potassium Chloride Carbon Dioxide Anion Gap BUN Creatinine Estimated GFR BUN/Creatinine Ratio Glucose Calcium Magnesium Total Bilirubin AST ALT Alkaline Phosphatase Total Protein Albumin Albumin/Globulin Ratio Lipase 13 HCG, Quant < 2 Urine Color Urine Turbidity Urine pH Ur Specific [place] Urine Protein Urine Glucose (UA) Urine Ketones Urine Blood Urine Nitrite Urine Bilirubin Urine Urobilinogen Ur Leukocyte Esterase Urine WBC (Auto) Urine RBC (Auto) U Epithel Cells (Auto) Urine Mucus Blood Type Ord Rhogam Gestat Weeks 04/10/21 04/10/21 04/10/21 10:55 10:55 Unknown WBC RBC Hgb Hct MCV MCH MCHC RDW Plt Count Sodium 141 Potassium 4.3 Chloride 102.3 Carbon Dioxide 29 Anion Gap 14 BUN 7 Creatinine 0.5 L Estimated GFR > 60 BUN/Creatinine Ratio 14 Glucose 96 Calcium 10.4 H Magnesium 2.00 Total Bilirubin 0.50 AST 26 ALT 20 Alkaline Phosphatase 83 Total Protein 7.6 Albumin 4.9 Albumin/Globulin Ratio 1.8 Lipase HCG, Quant Urine Color Yellow Urine Turbidity Cloudy Urine pH 7.0 Ur Specific [place] 1.021 Urine Protein 30 mg/dl Urine Glucose (UA) Neg Urine Ketones Neg Urine Blood Neg Urine Nitrite Neg Urine Bilirubin Neg Urine Urobilinogen 2.0 Ur Leukocyte Esterase Neg Urine WBC (Auto) 2.0 Urine RBC (Auto) 5.0 U Epithel Cells (Auto) 30.0 H Urine Mucus 1+ Blood Type A POSITIVE Ord Rhogam Gestat Weeks Rh pos Vital Signs 04/10/21 08:54 Temperature 98.3 F Pulse Rate 90 Respiratory 18 Rate Blood Pressure 138/96 O2 Sat by Pulse 96 Oximetry Labs noted. Rh+. Quant less than 2. I discussed the findings of the negative test with the patient. She states she does not understand why the health department will do blood ingested her urine. She did not seem surprised by the findings. Patient has been in the ER several hours waiting for her labs. During this time she has been taking p.o. without difficulty. She has been ambulatory. She is in no acute distress. She has had no nausea or vomiting. Patient being discharged home with discharge plan of care including PCP and LOAN SECRETARY follow-up. Patient verbalizes understanding of discharge plan of care - Differential Diagnosis RO PREG/EMESIS OF PREG Critical care attestation.: If time is entered above; I have spent that time in minutes in the direct care of this critically ill patient, excluding procedure time. ED Disposition Clinical Impression: Negative test Disposition: TO HOME OR SELFCARE Is pt being admited?: No Does the pt Need Aspirin: No Condition: Stable Additional Instructions: FOLLOW UP WITH PCP OR OB REFERRALS BELOW Referrals: KANCHAN PACHECO MD [Staff Physician] - 3-5 Days ALEXYS DURAN MD [Staff Physician] - 3-5 Days Time of Disposition: 13:09
[2021-04-10 12:57] LABS: Bilirubin,Urine NEG (Negative); Blood,Urine NEG (Negative); Color,Urine Yellow (Yellow); Mucus,Urine 1+ /HPF
== END 2021-04-10 13:15 | disposition home or self-care (01) ==
LOC: ED 07:49
DX: R11.2 Nausea with vomiting, unspecified (principal); Z32.02 Encounter for pregnancy test, result negative; J45.909 Unspecified asthma, uncomplicated; F41.8 Other specified anxiety disorders; L98.8 Other specified disorders of the skin and subcutaneous tissue; E66.9 Obesity, unspecified; Z88.1 Allergy status to other antibiotic agents
CPT/HCPCS: 36415; 80053; 81001; 83690; 83735; 84702; 85027; 86900; 86901; 99283; Q0162

== ENCOUNTER 2021-05-14 21:52 | Emergency (ER) | payer OTHER ==
[2021-05-14 23:24] VITALS: BP 152/79
[2021-05-15 00:20] LABS: Bacteria,Urine 1+ /HPF (Negative); Bilirubin,Urine NEG (Negative); Blood,Urine NEG (Negative); Color,Urine Yellow (Yellow); Mucus,Urine 3+ /HPF
[2021-05-15 00:32] LABS: Basophils % (Auto) 0.3 % (0.0-1.8); Eosinophils % (Auto) 0.4 % (0.0-4.3); Hemoglobin 12.1 gm/dl (10.1-14.3); Lymphocytes # (Auto) 4.5 K/mm3 (1.2-5.4); Lymphocytes % (Auto) 35.5 % (13.4-35.0); Mean Corpuscular HGB Conc 34 % (30-34); Mean Corpuscular Volume 90 fl (79-97); Monocytes # (Auto) 0.8 K/mm3 (0.0-0.8); Platelet Count 310 K/mm3 (140-440); Red Blood Count 4.01 M/mm3 (3.65-5.03); Red Cell Distribution Width 13.6 % (13.2-15.2)
[2021-05-15 00:34] LABS: Alanine Aminotransferase 15 units/L (7-56); Albumin 4.6 g/dL (3.9-5); BUN/Creatinine Ratio 8; Blood Urea Nitrogen 6 mg/dL (7-17); Calcium 9.4 mg/dL (8.4-10.2); Hemolysis Index 8
== END 2021-05-15 05:16 | disposition left against medical advice (07) ==
LOC: ED 21:52
DX: R10.9 Unspecified abdominal pain (principal); Z53.21 Procedure and treatment not carried out due to patient leaving prior to being seen by health care provider
CPT/HCPCS: 36415; 80053; 81001; 83690; 84703; 85025

== ENCOUNTER 2021-06-26 02:12 | Emergency (ER) | payer OTHER ==
[2021-06-26 03:14] LABS: Basophils % (Auto) 0.3 % (0.0-1.8); Eosinophils # (Auto) 0.1 K/mm3 (0.0-0.4); Eosinophils % (Auto) 0.5 % (0.0-4.3); Hematocrit 36.6 % (30.3-42.9); Hemoglobin 11.8 gm/dl (10.1-14.3); Lymphocytes % (Auto) 35.8 % (13.4-35.0); Mean Corpuscular HGB Conc 32 % (30-34); Mean Corpuscular Volume 90 fl (79-97); Monocytes # (Auto) 0.7 K/mm3 (0.0-0.8); Monocytes % (Auto) 6.4 % (0.0-7.3); Platelet Count 316 K/mm3 (140-440); Red Blood Count 4.07 M/mm3 (3.65-5.03); Red Cell Distribution Width 13.5 % (13.2-15.2)
[2021-06-26] MEDS ORDERED: oxyCODONE /ACETAMINOPHEN 5-325MG TAB PO ONE (04:00)
--- NOTE | 2021-06-26 05:04 | XRay Report ---
Mandible 5 views INDICATION: Mandibular pain following injury IMPRESSION: No displaced mandibular fracture identified. Signer Name: Raymundo Finley MD Signed: 06/26/2021 5:00 AM Workstation Name: [id number]
--- NOTE | 2021-06-26 05:56 | Emergency Department Report ---
ED Fall HPI - General Chief Complaint: Vaginal Bleeding Stated Complaint: POSS MISCARRIAGE Time Seen by Provider: 06/26/21 03:59 Source: patient Mode of arrival: Ambulatory - History of Present Illness Initial Comments: 20-year-old female vaginal department complaining of pain and swelling to her left jaw which is worse with palpation and range of motion/chewing. Pain to the left occurred after mechanical trip and fall incident which struck her face resulting in pain and swelling prior to arrival. She reports no loss of consciousness, no neck pain no neck pain, no ear pain no discharge no fever, chills, sweats. MD Complaint: fall Place Fall Occurred: home Loss of Consciousness: none Prolonged Down Time?: no Symptoms Prior to Fall: none Severity: mild Quality: dull Context: tripped/slipped Associated Symptoms: denies - Related Data Previous Rx's Medication Instructions Recorded Last Taken Type Pantoprazole [Protonix] 40 mg PO QDAY #30 tablet 07/16/19 Unknown Rx Albuterol Sulfate [Proventil Hfa] 2 puff IH Q4HR #1 hfa.aer.ad 09/19/20 Unknown Rx Famotidine [Pepcid] 40 mg PO QHS #30 tablet 11/06/20 Unknown Rx Amoxicillin/Potassium Clav 1 each PO BID #14 tablet 11/26/20 Unknown Rx [Augmentin 875-125 Tablet] Butalb/Acetamin/Caff 50-325-40 1 each PO Q4H PRN #12 tablet 11/26/20 Unknown Rx [Fioricet 50-325-40] Promethazine [Phenergan] 25 mg PO Q6HR PRN #12 tab 11/26/20 Unknown Rx Albuterol Mdi (or & Nicu Only) 2 puff IH QID PRN #8.5 gram 01/07/21 Unknown Rx [ProAir HFA Inhaler] Benzonatate [Tessalon Perles] 100 mg PO Q8HR #30 capsule 01/07/21 Unknown Rx hydrOXYzine PAMOATE [Vistaril] 25 mg PO Q6HR PRN #30 capsule 01/07/21 Unknown Rx methylPREDNISolone [Medrol 4MG 4 mg PO 21 #21 tab.ds.pk 01/07/21 Unknown Rx DOSEPAK (21 tabs)] Dicyclomine [Bentyl] 20 mg PO Q6H PRN #30 tablet 03/16/21 Unknown Rx Famotidine [Pepcid] 20 mg PO BID #60 tablet 03/16/21 Unknown Rx Ondansetron [Zofran Odt] 4 mg PO Q6HR PRN #20 tab.rapdis 03/16/21 Unknown Rx Allergies Allergy/AdvReac Type Severity Reaction Status Date / Time No Known Allergies Allergy Verified 05/14/21 22:52 ED Review of Systems ROS: Stated complaint: POSS MISCARRIAGE Other details as noted in HPI Comment: All other systems reviewed and negative Genitourinary: other (Bleeding present. Miscarriage in 5 days ago and followed by her [facility]ERTY CONSULT[facility]) ED Past Medical Hx - Past Medical History Previous Medical History?: Yes Hx Psychiatric Treatment: Yes (anxiety) Hx Asthma: Yes Additional medical history: sinus, Obesity/ALLERGICS/ ANXIETY, bronchitis - Surgical History Past Surgical History?: No - Social History Smoking Status: Never Smoker Substance Use Type: None - Medications Home Medications: Home Medications Medication Instructions Recorded Confirmed Last Taken Type Pantoprazole [Protonix] 40 mg PO QDAY #30 tablet 07/16/19 Unknown Rx Albuterol Sulfate [Proventil Hfa] 2 puff IH Q4HR #1 hfa.aer.ad 09/19/20 Unknown Rx Famotidine [Pepcid] 40 mg PO QHS #30 tablet 11/06/20 Unknown Rx Amoxicillin/Potassium Clav 1 each PO BID #14 tablet 11/26/20 Unknown Rx [Augmentin 875-125 Tablet] Butalb/Acetamin/Caff 50-325-40 1 each PO Q4H PRN #12 tablet 11/26/20 Unknown Rx [Fioricet 50-325-40] Promethazine [Phenergan] 25 mg PO Q6HR PRN #12 tab 11/26/20 Unknown Rx Albuterol Mdi (or & Nicu Only) 2 puff IH QID PRN #8.5 gram 01/07/21 Unknown Rx [ProAir HFA Inhaler] Benzonatate [Tessalon Perles] 100 mg PO Q8HR #30 capsule 01/07/21 Unknown Rx hydrOXYzine PAMOATE [Vistaril] 25 mg PO Q6HR PRN #30 capsule 01/07/21 Unknown Rx methylPREDNISolone [Medrol 4MG 4 mg PO 21 #21 tab.ds.pk 01/07/21 Unknown Rx DOSEPAK (21 tabs)] Dicyclomine [Bentyl] 20 mg PO Q6H PRN #30 tablet 03/16/21 Unknown Rx Famotidine [Pepcid] 20 mg PO BID #60 tablet 03/16/21 Unknown Rx Ondansetron [Zofran Odt] 4 mg PO Q6HR PRN #20 tab.rapdis 03/16/21 Unknown Rx ED Physical Exam - General Limitations: No Limitations General appearance: alert, in no apparent distress - Head Head exam: Present: atraumatic, normocephalic - Eye Eye exam: Present: normal appearance - ENT ENT exam: Present: mucous membranes moist - Neck Neck exam: Present: normal inspection - Respiratory Respiratory exam: Present: normal lung sounds bilaterally. Absent: respiratory distress - Cardiovascular Cardiovascular Exam: Present: regular rate, normal rhythm. Absent: systolic murmur, diastolic murmur, rubs, gallop - GI/Abdominal GI/Abdominal exam: Present: soft, normal bowel sounds - Extremities Exam Extremities exam: Present: normal inspection - Back Exam Back exam: Present: normal inspection - Neurological Exam Neurological exam: Present: alert, oriented X3 - Psychiatric Psychiatric exam: Present: normal affect, normal mood - Skin Skin exam: Present: warm, dry, intact, normal color. Absent: rash ED Medical Decision Making - Lab Data Result diagrams: 06/26/21 02:38 - Radiology Data [facility] [address] [place] [address] XRay Report Signed Patient: DUNIA WATT MR#: [id number] : 2000 Acct:[id number] Age/Sex: 20 / F ADM Date: 06/26/21 Loc: ED Attending Dr: Ordering Physician: KYLAH HANKINS Date of Service: 06/26/21 Procedure(s): XR mandible 4+V Accession Number(s): [id number] cc: KYLAH HANKINS Fluoro Time In Minutes: Mandible 5 views INDICATION: Mandibular pain following injury IMPRESSION: No displaced mandibular fracture identified. Signer Name: Raymundo Finley MD Signed: 06/26/2021 5:00 AM Workstation Name: [id number] Transcribed By: BC Dictated By: Raymundo Finley MD Electronically Authenticated By: Raymundo Finley MD Signed Date/Time: 06/26/21499 DD/ 0459 TD/TT: - Medical Decision Making 20-year-old female status post trip and fall striking her left jaw on the ground resulting in pain to the mandible suspicious for fracture the x-ray did not reveal such and she was found to have a contusion she was treated accordingly with analgesics and ice therapy and and advised her to do the same therapy for home. Problem 2 possible 20-year-old female reports starting a miscarriage about 5 5 5 days ago which she passively had mentioned stated she was not really worried because she had already been under the care of her PROPERTY CONSULTANT. Currently her quant is not supportive of being less than 2 she reports scant bleeding if any and no pain or cramping. She is hemodynamic dynamically stable with a benign abdominal examination. She states that the PROPERTY CONSULTANT advised her to leave their office and come over to the hospital so that we could confirm if she was having a miscarriage or not in the ER rather than in the office of the PROPERTY CONSULTANT. At this present time her examination history complaint does not want any further testing and I referred the patient back to her PROPERTY CONSULTANT for continuity of care and any treatments that they feel are necessary Critical care attestation.: If time is entered above; I have spent that time in minutes in the direct care of this critically ill patient, excluding procedure time. ED Disposition Clinical Impression: Contusion of mandibular joint area Disposition: 01 HOME / SELF CARE / HOMELESS Is pt being admited?: No Does the pt Need Aspirin: No Condition: Stable Instructions: Contusion, How to Use Cold Therapy, Jaw Contusion Additional Instructions: Blunt trauma to the left cheek after a trip and fall resulting in pain to the jaw no neck tenderness is noted. X-ray shows no fractures or deformities Referrals: [facility] [Provider Group] - 3-5 Days PRIMARY [facility], [Primary Care Provider] - 3-5 Days (To be sure to return to [facility] to follow-up for your your vaginal bleeding while /miscarriage that they inform you about 4 -5 days ago) Forms: Work/School Release Form(ED)
== END 2021-06-26 06:15 | disposition home or self-care (01) ==
LOC: ED 02:12
DX: S00.83XA Contusion of other part of head, initial encounter (principal); F41.9 Anxiety disorder, unspecified; J45.909 Unspecified asthma, uncomplicated; E66.9 Obesity, unspecified; Z87.59 Personal history of other complications of pregnancy, childbirth and the puerperium; W18.39XA Other fall on same level, initial encounter; Y93.89 Activity, other specified; Y92.008 Other place in unspecified non-institutional (private) residence as the place of occurrence of the external cause; Y99.8 Other external cause status
CPT/HCPCS: 36415; 70110; 84702; 85025; 86900; 86901; 99283

== ENCOUNTER 2021-07-03 20:20 | Emergency (ER) | payer OTHER ==
[2021-07-03 20:38] VITALS: BP 132/92
[2021-07-03] MEDS ORDERED: traMADol 50 MG TAB PO ONE (21:34)
--- NOTE | 2021-07-03 21:38 | Emergency Department Report ---
ED ENT HPI - General Chief complaint: Dental/Oral Stated complaint: TOOTH PAIN Time Seen by Provider: 07/03/21 20:57 Source: patient Mode of arrival: Ambulatory Limitations: No Limitations - History of Present Illness Initial comments: Patient 20-year-old female who presents with dental pain / x3 days. Patient has history of dental caries. He has follow-up dental appointment in 3 days. States out of pain medicine and antibiotics. Been no fevers, no chills no throat or ear pain. Patient is tolerating p.o. intake. MD complaint: tooth pain - Related Data Previous Rx's Medication Instructions Recorded Last Taken Type Pantoprazole [Protonix] 40 mg PO QDAY #30 tablet 07/16/19 Unknown Rx Albuterol Sulfate [Proventil Hfa] 2 puff IH Q4HR #1 hfa.aer.ad 09/19/20 Unknown Rx Famotidine [Pepcid] 40 mg PO QHS #30 tablet 11/06/20 Unknown Rx Amoxicillin/Potassium Clav 1 each PO BID #14 tablet 11/26/20 Unknown Rx [Augmentin 875-125 Tablet] Butalb/Acetamin/Caff 50-325-40 1 each PO Q4H PRN #12 tablet 11/26/20 Unknown Rx [Fioricet 50-325-40] Promethazine [Phenergan] 25 mg PO Q6HR PRN #12 tab 11/26/20 Unknown Rx Albuterol Mdi (or & Nicu Only) 2 puff IH QID PRN #8.5 gram 01/07/21 Unknown Rx [ProAir HFA Inhaler] Benzonatate [Tessalon Perles] 100 mg PO Q8HR #30 capsule 01/07/21 Unknown Rx hydrOXYzine PAMOATE [Vistaril] 25 mg PO Q6HR PRN #30 capsule 01/07/21 Unknown Rx methylPREDNISolone [Medrol 4MG 4 mg PO 21 #21 tab.ds.pk 01/07/21 Unknown Rx DOSEPAK (21 tabs)] Dicyclomine [Bentyl] 20 mg PO Q6H PRN #30 tablet 03/16/21 Unknown Rx Famotidine [Pepcid] 20 mg PO BID #60 tablet 03/16/21 Unknown Rx Ondansetron [Zofran Odt] 4 mg PO Q6HR PRN #20 tab.rapdis 03/16/21 Unknown Rx Amoxicillin/Potassium Clav 1 each PO BID 7 Days #14 tablet 07/03/21 Unknown Rx [Augmentin 875-125 Tablet] Chlorhexidine Mouthwash [Peridex] 15 ml MM BID #1 bottle 07/03/21 Unknown Rx traMADoL [Ultram] 50 mg PO Q6HR PRN #12 tablet 07/03/21 Unknown Rx Allergies Allergy/AdvReac Type Severity Reaction Status Date / Time No Known Allergies Allergy Verified 05/14/21 22:52 ED Dental HPI - General Chief complaint: Dental/Oral Stated complaint: TOOTH PAIN Time Seen by Provider: 07/03/21 20:57 Source: patient Mode of arrival: Ambulatory Limitations: No Limitations - Related Data Previous Rx's Medication Instructions Recorded Last Taken Type Pantoprazole [Protonix] 40 mg PO QDAY #30 tablet 07/16/19 Unknown Rx Albuterol Sulfate [Proventil Hfa] 2 puff IH Q4HR #1 hfa.aer.ad 09/19/20 Unknown Rx Famotidine [Pepcid] 40 mg PO QHS #30 tablet 11/06/20 Unknown Rx Amoxicillin/Potassium Clav 1 each PO BID #14 tablet 11/26/20 Unknown Rx [Augmentin 875-125 Tablet] Butalb/Acetamin/Caff 50-325-40 1 each PO Q4H PRN #12 tablet 11/26/20 Unknown Rx [Fioricet 50-325-40] Promethazine [Phenergan] 25 mg PO Q6HR PRN #12 tab 11/26/20 Unknown Rx Albuterol Mdi (or & Nicu Only) 2 puff IH QID PRN #8.5 gram 01/07/21 Unknown Rx [ProAir HFA Inhaler] Benzonatate [Tessalon Perles] 100 mg PO Q8HR #30 capsule 01/07/21 Unknown Rx hydrOXYzine PAMOATE [Vistaril] 25 mg PO Q6HR PRN #30 capsule 01/07/21 Unknown Rx methylPREDNISolone [Medrol 4MG 4 mg PO 21 #21 tab.ds.pk 01/07/21 Unknown Rx DOSEPAK (21 tabs)] Dicyclomine [Bentyl] 20 mg PO Q6H PRN #30 tablet 03/16/21 Unknown Rx Famotidine [Pepcid] 20 mg PO BID #60 tablet 03/16/21 Unknown Rx Ondansetron [Zofran Odt] 4 mg PO Q6HR PRN #20 tab.rapdis 03/16/21 Unknown Rx Amoxicillin/Potassium Clav 1 each PO BID 7 Days #14 tablet 07/03/21 Unknown Rx [Augmentin 875-125 Tablet] Chlorhexidine Mouthwash [Peridex] 15 ml MM BID #1 bottle 07/03/21 Unknown Rx traMADoL [Ultram] 50 mg PO Q6HR PRN #12 tablet 07/03/21 Unknown Rx Allergies Allergy/AdvReac Type Severity Reaction Status Date / Time No Known Allergies Allergy Verified 05/14/21 22:52 ED Review of Systems ROS: Stated complaint: TOOTH PAIN Other details as noted in HPI Constitutional: denies: chills, fever Eyes: denies: eye pain, eye discharge, vision change ENT: dental pain Respiratory: denies: cough, shortness of breath, wheezing Cardiovascular: denies: chest pain, palpitations Endocrine: no symptoms reported Gastrointestinal: denies: abdominal pain, nausea, vomiting, diarrhea Genitourinary: denies: urgency, dysuria, discharge Musculoskeletal: denies: back pain, joint swelling, arthralgia Skin: denies: rash, lesions Neurological: denies: headache, weakness, paresthesias Psychiatric: denies: anxiety, depression Hematological/Lymphatic: denies: easy bleeding, easy bruising ED Past Medical Hx - Past Medical History Previous Medical History?: Yes Hx Psychiatric Treatment: Yes (anxiety) Hx Asthma: Yes Additional medical history: sinus, Obesity/ALLERGICS/ ANXIETY, bronchitis - Surgical History Past Surgical History?: No - Social History Smoking Status: Never Smoker Substance Use Type: None - Medications Home Medications: Home Medications Medication Instructions Recorded Confirmed Last Taken Type Pantoprazole [Protonix] 40 mg PO QDAY #30 tablet 07/16/19 Unknown Rx Albuterol Sulfate [Proventil Hfa] 2 puff IH Q4HR #1 hfa.aer.ad 09/19/20 Unknown Rx Famotidine [Pepcid] 40 mg PO QHS #30 tablet 11/06/20 Unknown Rx Amoxicillin/Potassium Clav 1 each PO BID #14 tablet 11/26/20 Unknown Rx [Augmentin 875-125 Tablet] Butalb/Acetamin/Caff 50-325-40 1 each PO Q4H PRN #12 tablet 11/26/20 Unknown Rx [Fioricet 50-325-40] Promethazine [Phenergan] 25 mg PO Q6HR PRN #12 tab 11/26/20 Unknown Rx Albuterol Mdi (or & Nicu Only) 2 puff IH QID PRN #8.5 gram 01/07/21 Unknown Rx [ProAir HFA Inhaler] Benzonatate [Tessalon Perles] 100 mg PO Q8HR #30 capsule 01/07/21 Unknown Rx hydrOXYzine PAMOATE [Vistaril] 25 mg PO Q6HR PRN #30 capsule 01/07/21 Unknown Rx methylPREDNISolone [Medrol 4MG 4 mg PO 21 #21 tab.ds.pk 01/07/21 Unknown Rx DOSEPAK (21 tabs)] Dicyclomine [Bentyl] 20 mg PO Q6H PRN #30 tablet 03/16/21 Unknown Rx Famotidine [Pepcid] 20 mg PO BID #60 tablet 03/16/21 Unknown Rx Ondansetron [Zofran Odt] 4 mg PO Q6HR PRN #20 tab.rapdis 03/16/21 Unknown Rx Amoxicillin/Potassium Clav 1 each PO BID 7 Days #14 tablet 07/03/21 Unknown Rx [Augmentin 875-125 Tablet] Chlorhexidine Mouthwash [Peridex] 15 ml MM BID #1 bottle 07/03/21 Unknown Rx traMADoL [Ultram] 50 mg PO Q6HR PRN #12 tablet 07/03/21 Unknown Rx ED Physical Exam - General Limitations: No Limitations General appearance: alert, in no apparent distress - Head Head exam: Present: atraumatic, normocephalic - Eye Eye exam: Present: PERRL, EOMI Pupils: Present: normal accommodation - ENT ENT exam: Present: mucous membranes moist, TM's normal bilaterally, normal external ear exam - Expanded ENT Exam Expanded Teeth exam: Present: dental caries, dental tenderness # (4 no facial swelling no gum swelling no focal abscess) Throat exam: Positive: normal inspection, other (Uvula midline). Negative: tonsillar erythema, tonsillomegaly, tonsillar exudate - Neck Neck exam: Present: normal inspection, full ROM. Absent: tenderness, lymphadenopathy - Respiratory Respiratory exam: Present: normal lung sounds bilaterally. Absent: respiratory distress, wheezes, stridor, chest wall tenderness - Cardiovascular Cardiovascular Exam: Present: regular rate, normal rhythm, normal heart sounds. Absent: systolic murmur, diastolic murmur, rubs, gallop - GI/Abdominal GI/Abdominal exam: Present: soft, normal bowel sounds. Absent: distended, tenderness - Rectal Rectal exam: Present: deferred - Extremities Exam Extremities exam: Present: normal inspection - Back Exam Back exam: Present: normal inspection - Neurological Exam Neurological exam: Present: alert, oriented X3 - Psychiatric Psychiatric exam: Present: normal affect, normal mood - Skin Skin exam: Present: warm, dry, intact, normal color. Absent: rash ED Course Vital Signs 07/03/21 20:35 Temperature 97.9 F Pulse Rate 102 H Respiratory 16 Rate Blood Pressure 132/92 O2 Sat by Pulse 98 Oximetry ED Medical Decision Making - Medical Decision Making This is straightforward infected dental caries. Plan NSAIDs as needed pain, antibiotics, follow-up with dentist in 2 to 3 days as scheduled. There is no lower gum swelling no throat pain no ear pain patient is tolerating p.o. intake patient will be DC'd home in stable condition at this time. Critical care attestation.: If time is entered above; I have spent that time in minutes in the direct care of this critically ill patient, excluding procedure time. ED Disposition Clinical Impression: Dental caries Disposition: HOME / SELF CARE / HOMELESS Is pt being admited?: No Does the pt Need Aspirin: No Condition: Stable Instructions: Preventive Dental Care, Adult Additional Instructions: Follow-up with dentist in 2 to 3 days as scheduled. Return to emergency should symptoms worsen. Prescriptions: Amoxicillin/Potassium Clav [Augmentin 875-125 Tablet] 1 each PO BID 7 Days #14 tablet Chlorhexidine Mouthwash [Peridex] 15 ml MM BID #1 bottle traMADoL [Ultram] 50 mg PO Q6HR PRN #12 tablet PRN Reason: Pain Referrals: [facility] [Provider Group] - 3-5 Days Forms: Work/School Release Form(ED) Time of Disposition: 21:40
== END 2021-07-03 22:31 | disposition home or self-care (01) ==
LOC: ED 20:20
DX: K02.9 Dental caries, unspecified (principal); J45.909 Unspecified asthma, uncomplicated; F41.9 Anxiety disorder, unspecified; E66.9 Obesity, unspecified
CPT/HCPCS: 99282

== ENCOUNTER 2021-07-23 21:41 | Emergency (ER) | payer OTHER ==
[2021-07-23 21:52] VITALS: BP 139/74
[2021-07-23] MEDS ORDERED: HYDROcodone/ACETAMINOPHEN 5-325 MG TAB PO STA (22:20)
--- NOTE | 2021-07-23 22:30 | Emergency Department Report ---
ED ENT HPI - General Chief complaint: Dental/Oral Stated complaint: TOOTH PAIN Time Seen by Provider: 07/23/21 22:03 Source: patient Mode of arrival: Ambulatory Limitations: No Limitations - History of Present Illness MD complaint: tooth pain -: Gradual (Acute on chronic dental pain reports having dental issues for last few years this flareup from time to time. This particular fiberoptic been going on for the last few days as part of her hurt her dental filling has fallen out. Reports no hemoptysis no hematemesis hematochezia, no nausea no vomitin) Location: tooth # Severity: mild, moderate Quality: dull Consistency: constant Improves with: none Worsens with: eating - Related Data Previous Rx's Medication Instructions Recorded Last Taken Type Pantoprazole [Protonix] 40 mg PO QDAY #30 tablet 07/16/19 Unknown Rx Albuterol Sulfate [Proventil Hfa] 2 puff IH Q4HR #1 hfa.aer.ad 09/19/20 Unknown Rx Famotidine [Pepcid] 40 mg PO QHS #30 tablet 11/06/20 Unknown Rx Amoxicillin/Potassium Clav 1 each PO BID #14 tablet 11/26/20 Unknown Rx [Augmentin 875-125 Tablet] Butalb/Acetamin/Caff 50-325-40 1 each PO Q4H PRN #12 tablet 11/26/20 Unknown Rx [Fioricet 50-325-40] Promethazine [Phenergan] 25 mg PO Q6HR PRN #12 tab 11/26/20 Unknown Rx Albuterol Mdi (or & Nicu Only) 2 puff IH QID PRN #8.5 gram 01/07/21 Unknown Rx [ProAir HFA Inhaler] Benzonatate [Tessalon Perles] 100 mg PO Q8HR #30 capsule 01/07/21 Unknown Rx hydrOXYzine PAMOATE [Vistaril] 25 mg PO Q6HR PRN #30 capsule 01/07/21 Unknown Rx methylPREDNISolone [Medrol 4MG 4 mg PO 21 #21 tab.ds.pk 01/07/21 Unknown Rx DOSEPAK (21 tabs)] Dicyclomine [Bentyl] 20 mg PO Q6H PRN #30 tablet 03/16/21 Unknown Rx Famotidine [Pepcid] 20 mg PO BID #60 tablet 03/16/21 Unknown Rx Ondansetron [Zofran Odt] 4 mg PO Q6HR PRN #20 tab.rapdis 03/16/21 Unknown Rx Amoxicillin/Potassium Clav 1 each PO BID 7 Days #14 tablet 07/03/21 Unknown Rx [Augmentin 875-125 Tablet] Chlorhexidine Mouthwash [Peridex] 15 ml MM BID #1 bottle 07/23/21 Unknown Rx Lidocaine Viscous 2% 5 ml MM Q3H PRN #120 udc 07/23/21 Unknown Rx traMADoL [Ultram 50 MG tab] 50 mg PO Q6HR PRN #12 tablet 07/23/21 Unknown Rx Allergies Allergy/AdvReac Type Severity Reaction Status Date / Time No Known Allergies Allergy Verified 05/14/21 22:52 ED Dental HPI - General Chief complaint: Dental/Oral Stated complaint: TOOTH PAIN Time Seen by Provider: 07/23/21 22:03 Source: patient Mode of arrival: Ambulatory Limitations: No Limitations - Related Data Previous Rx's Medication Instructions Recorded Last Taken Type Pantoprazole [Protonix] 40 mg PO QDAY #30 tablet 07/16/19 Unknown Rx Albuterol Sulfate [Proventil Hfa] 2 puff IH Q4HR #1 hfa.aer.ad 09/19/20 Unknown Rx Famotidine [Pepcid] 40 mg PO QHS #30 tablet 11/06/20 Unknown Rx Amoxicillin/Potassium Clav 1 each PO BID #14 tablet 11/26/20 Unknown Rx [Augmentin 875-125 Tablet] Butalb/Acetamin/Caff 50-325-40 1 each PO Q4H PRN #12 tablet 11/26/20 Unknown Rx [Fioricet 50-325-40] Promethazine [Phenergan] 25 mg PO Q6HR PRN #12 tab 11/26/20 Unknown Rx Albuterol Mdi (or & Nicu Only) 2 puff IH QID PRN #8.5 gram 01/07/21 Unknown Rx [ProAir HFA Inhaler] Benzonatate [Tessalon Perles] 100 mg PO Q8HR #30 capsule 01/07/21 Unknown Rx hydrOXYzine PAMOATE [Vistaril] 25 mg PO Q6HR PRN #30 capsule 01/07/21 Unknown Rx methylPREDNISolone [Medrol 4MG 4 mg PO 21 #21 tab.ds.pk 01/07/21 Unknown Rx DOSEPAK (21 tabs)] Dicyclomine [Bentyl] 20 mg PO Q6H PRN #30 tablet 03/16/21 Unknown Rx Famotidine [Pepcid] 20 mg PO BID #60 tablet 03/16/21 Unknown Rx Ondansetron [Zofran Odt] 4 mg PO Q6HR PRN #20 tab.rapdis 03/16/21 Unknown Rx Amoxicillin/Potassium Clav 1 each PO BID 7 Days #14 tablet 07/03/21 Unknown Rx [Augmentin 875-125 Tablet] Chlorhexidine Mouthwash [Peridex] 15 ml MM BID #1 bottle 07/23/21 Unknown Rx Lidocaine Viscous 2% 5 ml MM Q3H PRN #120 udc 07/23/21 Unknown Rx traMADoL [Ultram 50 MG tab] 50 mg PO Q6HR PRN #12 tablet 07/23/21 Unknown Rx Allergies Allergy/AdvReac Type Severity Reaction Status Date / Time No Known Allergies Allergy Verified 05/14/21 22:52 ED Review of Systems ROS: Stated complaint: TOOTH PAIN Other details as noted in HPI Comment: All other systems reviewed and negative ED Past Medical Hx - Past Medical History Previous Medical History?: Yes Hx Psychiatric Treatment: Yes (anxiety) Hx Asthma: Yes Additional medical history: sinus, Obesity/ALLERGICS/ ANXIETY, bronchitis - Surgical History Past Surgical History?: No - Social History Smoking Status: Never Smoker Substance Use Type: None - Medications Home Medications: Home Medications Medication Instructions Recorded Confirmed Last Taken Type Pantoprazole [Protonix] 40 mg PO QDAY #30 tablet 07/16/19 Unknown Rx Albuterol Sulfate [Proventil Hfa] 2 puff IH Q4HR #1 hfa.aer.ad 09/19/20 Unknown Rx Famotidine [Pepcid] 40 mg PO QHS #30 tablet 11/06/20 Unknown Rx Amoxicillin/Potassium Clav 1 each PO BID #14 tablet 11/26/20 Unknown Rx [Augmentin 875-125 Tablet] Butalb/Acetamin/Caff 50-325-40 1 each PO Q4H PRN #12 tablet 11/26/20 Unknown Rx [Fioricet 50-325-40] Promethazine [Phenergan] 25 mg PO Q6HR PRN #12 tab 11/26/20 Unknown Rx Albuterol Mdi (or & Nicu Only) 2 puff IH QID PRN #8.5 gram 01/07/21 Unknown Rx [ProAir HFA Inhaler] Benzonatate [Tessalon Perles] 100 mg PO Q8HR #30 capsule 01/07/21 Unknown Rx hydrOXYzine PAMOATE [Vistaril] 25 mg PO Q6HR PRN #30 capsule 01/07/21 Unknown Rx methylPREDNISolone [Medrol 4MG 4 mg PO 21 #21 tab.ds.pk 01/07/21 Unknown Rx DOSEPAK (21 tabs)] Dicyclomine [Bentyl] 20 mg PO Q6H PRN #30 tablet 03/16/21 Unknown Rx Famotidine [Pepcid] 20 mg PO BID #60 tablet 03/16/21 Unknown Rx Ondansetron [Zofran Odt] 4 mg PO Q6HR PRN #20 tab.rapdis 03/16/21 Unknown Rx Amoxicillin/Potassium Clav 1 each PO BID 7 Days #14 tablet 07/03/21 Unknown Rx [Augmentin 875-125 Tablet] Chlorhexidine Mouthwash [Peridex] 15 ml MM BID #1 bottle 07/23/21 Unknown Rx Lidocaine Viscous 2% 5 ml MM Q3H PRN #120 udc 07/23/21 Unknown Rx traMADoL [Ultram 50 MG tab] 50 mg PO Q6HR PRN #12 tablet 07/23/21 Unknown Rx ED Physical Exam - General Limitations: No Limitations General appearance: alert, in no apparent distress - Head Head exam: Present: atraumatic, normocephalic - Eye Eye exam: Present: normal appearance, PERRL, EOMI - ENT ENT exam: Present: mucous membranes moist, other (Significant erosion to the right lower molar and left upper molar region. Airway patent tongue uvula midline) - Neck Neck exam: Present: normal inspection, full ROM - Respiratory Respiratory exam: Present: normal lung sounds bilaterally. Absent: respiratory distress, rales, rhonchi, accessory muscle use, decreased breath sounds, prolonged expiratory - Cardiovascular Cardiovascular Exam: Present: regular rate, normal rhythm. Absent: systolic murmur, diastolic murmur, rubs, gallop - GI/Abdominal GI/Abdominal exam: Present: soft, normal bowel sounds. Absent: tenderness, guarding, rebound, hypoactive bowel sounds, organomegaly, mass - Extremities Exam Extremities exam: Present: normal inspection, normal capillary refill - Back Exam Back exam: Present: normal inspection. Absent: CVA tenderness (R), CVA tenderness (L) - Neurological Exam Neurological exam: Present: alert, oriented X3, CN II-XII intact, normal gait - Psychiatric Psychiatric exam: Present: normal affect, normal mood. Absent: anxious, flat affect, manic - Skin Skin exam: Present: warm, dry, intact, normal color. Absent: rash, diaphoretic, erythema, urticaria, pallor, abrasion, ecchymosis ED Course Vital Signs 07/23/21 21:50 Temperature 97.7 F Pulse Rate 102 H Respiratory 18 Rate Blood Pressure 139/74 O2 Sat by Pulse 97 Oximetry Critical care attestation.: If time is entered above; I have spent that time in minutes in the direct care of this critically ill patient, excluding procedure time. ED Disposition Clinical Impression: Pain, dental Disposition: 01 HOME / SELF CARE / HOMELESS Is pt being admited?: No Does the pt Need Aspirin: No Condition: Stable Instructions: Diet and Dental Disease, Triamcinolone dental paste, Preventive Dental Care, Adult Prescriptions: Lidocaine Viscous 2% 5 ml MM Q3H PRN #120 udc PRN Reason: Pain, Moderate (4-6) Chlorhexidine Mouthwash [Peridex] 15 ml MM BID #1 bottle traMADoL [Ultram 50 MG tab] 50 mg PO Q6HR PRN #12 tablet PRN Reason: Pain Referrals: [facility] [Outside] - 3-5 Days
== END 2021-07-23 23:30 | disposition home or self-care (01) ==
LOC: ED 21:41
DX: K08.89 Other specified disorders of teeth and supporting structures (principal); F41.9 Anxiety disorder, unspecified; J45.909 Unspecified asthma, uncomplicated; Z79.899 Other long term (current) drug therapy
CPT/HCPCS: 99282

== ENCOUNTER 2021-07-25 23:11 | Emergency (ER) | payer OTHER ==
[2021-07-25 23:49] VITALS: BP 141/90
[2021-07-25] MEDS ORDERED: BUTALB/ACETAMINOPHEN/CAFFEINE TAB PO ONE (23:59)
[2021-07-25] MEDS ORDERED: METOCLOPRAMIDE 10 MG/2 ML INJ IV ONE (23:59)
[2021-07-25] MEDS ORDERED: diphenhydrAMINE 50 MG/ML VIAL IV ONE (23:59)
[2021-07-26 00:37] LABS: Bilirubin,Urine NEG (Negative); Blood,Urine NEG (Negative); Color,Urine Yellow (Yellow); Mucus,Urine FEW /HPF; Protein,Urine <15 mg/dL mg/dL (Negative); WBC,Urine < 1.0 /HPF (0.0-6.0)
[2021-07-26 00:41] LABS: HCG Qualitative,Urine Negative (Negative)
--- NOTE | 2021-07-26 02:01 | Cat Scan Report ---
CT HEAD WITHOUT CONTRAST INDICATION / CLINICAL INFORMATION: Severe headache. TECHNIQUE: All CT scans at this location are performed using CT dose reduction for ALARA by means of automated exposure control. COMPARISON: None available. FINDINGS: HEMORRHAGE: None. EXTRA-AXIAL SPACES: Normal in size and morphology for the patient's age. VENTRICULAR SYSTEM: Normal in size and morphology for the patient's age. CEREBRAL PARENCHYMA: No significant abnormality. No acute territorial infarct. MIDLINE SHIFT / HERNIATION: None. CEREBELLUM / BRAINSTEM: No significant abnormality. ORBITS: Normal as visualized. SOFT TISSUES: No significant abnormality. SKULL: No significant abnormality. PARANASAL SINUSES / MASTOID AIR CELLS: Normal as visualized. ADDITIONAL FINDINGS: None. IMPRESSION: 1. No acute intracranial abnormality. Signer Name: Kai Echavarria MD Signed: 07/26/2021 1:57 AM Workstation Name: [id number]
--- NOTE | 2021-07-26 02:11 | Emergency Department Report ---
ED Headache HPI - General Chief Complaint: Headache Stated Complaint: HEADACHE/BACK PAIN Source: patient Exam Limitations: no limitations - History of Present Illness Initial Comments: Patient is a nulliparous 20-year-old -O[place]i female with past medical history of anxiety, asthma and morbid obesity presents to the ED with complaint of acute onset persistent severe headache which she describes as sharp, constant and pressure-like radiating from the frontal to the temporal scalp bilaterally for the last 1 week. Patient also complains of low back pain for the last 2 weeks. Patient denies dysuria, urine frequency and urgency, dizziness, syncope, chest pain, sore throat, change in vision, neck pain, fever, chills, nasal and sinus congestion, lightheadedness, seizures, abdominal pain or diarrhea. Timing/Duration: 1 week Quality: severe, constant, sharp Head Injury Location: frontal, temporal Recent Head Trauma: no recent headache/trauma Modifying Factors: worse with: cold therapy, exposure to light, immobilization, medication Associated Symptoms: denies symptoms, facial pain, nausea/vomiting. denies: fatigue, fever/chills, flushing, loss of consciousness, nasal congestion, nasal drainage, numbness in legs/feet, seizures, sinus infection, stiff neck, vision changes, weakness Allergies/Adverse Reactions: Allergies No Known Allergies Allergy (Verified 05/14/21 22:52) Home Medications: Ambulatory Orders Pantoprazole [Protonix] 40 mg PO QDAY #30 tablet 07/16/19 Albuterol Sulfate [Proventil Hfa] 2 puff IH Q4HR #1 hfa.aer.ad 09/19/20 Famotidine [Pepcid] 40 mg PO QHS #30 tablet 11/06/20 Amoxicillin/Potassium Clav [Augmentin 875-125 Tablet] 1 each PO BID #14 tablet 11/26/20 Promethazine [Phenergan] 25 mg PO Q6HR PRN #12 tab 11/26/20 Albuterol Mdi (or & Nicu Only) [ProAir HFA Inhaler] 2 puff IH QID PRN #8.5 gram 01/07/21 Benzonatate [Tessalon Perles] 100 mg PO Q8HR #30 capsule 01/07/21 hydrOXYzine PAMOATE [Vistaril] 25 mg PO Q6HR PRN #30 capsule 01/07/21 methylPREDNISolone [Medrol 4MG DOSEPAK (21 tabs)] 4 mg PO 21 #21 tab.ds.pk 01/07/21 Dicyclomine [Bentyl] 20 mg PO Q6H PRN #30 tablet 03/16/21 Famotidine [Pepcid] 20 mg PO BID #60 tablet 03/16/21 Ondansetron [Zofran Odt] 4 mg PO Q6HR PRN #20 tab.rapdis 03/16/21 Amoxicillin/Potassium Clav [Augmentin 875-125 Tablet] 1 each PO BID 7 Days #14 tablet 07/03/21 Chlorhexidine Mouthwash [Peridex] 15 ml MM BID #1 bottle 07/23/21 Lidocaine Viscous 2% 5 ml MM Q3H PRN #120 udc 07/23/21 traMADoL [Ultram 50 MG tab] 50 mg PO Q6HR PRN #12 tablet 07/23/21 Butalb/Acetamin/Caff 50-325-40 [Fioricet 50-325-40] 1 each PO Q4H PRN #12 tablet 07/26/21 Cyclobenzaprine [Flexeril] 10 mg PO TID PRN #15 tablet 07/26/21 Ibuprofen [Motrin] 800 mg PO Q8HR PRN #30 tablet 07/26/21 ED Review of Systems ROS: Stated complaint: HEADACHE/BACK PAIN Other details as noted in HPI Constitutional: denies: chills, fever Eyes: denies: eye pain, eye discharge, vision change ENT: denies: ear pain, throat pain Respiratory: denies: cough, shortness of breath, wheezing Cardiovascular: denies: chest pain, palpitations Endocrine: no symptoms reported Gastrointestinal: denies: abdominal pain, nausea, diarrhea Genitourinary: denies: urgency, dysuria, discharge Musculoskeletal: back pain (Low back pain). denies: joint swelling, arthralgia Skin: denies: rash, lesions Neurological: headache (Severe headache). denies: weakness, paresthesias Psychiatric: denies: anxiety, depression Hematological/Lymphatic: denies: easy bleeding, easy bruising ED Past Medical Hx - Past Medical History Previous Medical History?: Yes Hx Psychiatric Treatment: Yes (anxiety) Hx Asthma: Yes Additional medical history: sinus, Obesity/ALLERGICS/ ANXIETY, bronchitis - Surgical History Past Surgical History?: No - Social History Smoking Status: Never Smoker Substance Use Type: None - Medications Home Medications: Home Medications Medication Instructions Recorded Confirmed Last Taken Type Pantoprazole [Protonix] 40 mg PO QDAY #30 tablet 07/16/19 Unknown Rx Albuterol Sulfate [Proventil Hfa] 2 puff IH Q4HR #1 hfa.aer.ad 09/19/20 Unknown Rx Famotidine [Pepcid] 40 mg PO QHS #30 tablet 11/06/20 Unknown Rx Amoxicillin/Potassium Clav 1 each PO BID #14 tablet 11/26/20 Unknown Rx [Augmentin 875-125 Tablet] Promethazine [Phenergan] 25 mg PO Q6HR PRN #12 tab 11/26/20 Unknown Rx Albuterol Mdi (or & Nicu Only) 2 puff IH QID PRN #8.5 gram 01/07/21 Unknown Rx [ProAir HFA Inhaler] Benzonatate [Tessalon Perles] 100 mg PO Q8HR #30 capsule 01/07/21 Unknown Rx hydrOXYzine PAMOATE [Vistaril] 25 mg PO Q6HR PRN #30 capsule 01/07/21 Unknown Rx methylPREDNISolone [Medrol 4MG 4 mg PO 21 #21 tab.ds.pk 01/07/21 Unknown Rx DOSEPAK (21 tabs)] Dicyclomine [Bentyl] 20 mg PO Q6H PRN #30 tablet 03/16/21 Unknown Rx Famotidine [Pepcid] 20 mg PO BID #60 tablet 03/16/21 Unknown Rx Ondansetron [Zofran Odt] 4 mg PO Q6HR PRN #20 tab.rapdis 03/16/21 Unknown Rx Amoxicillin/Potassium Clav 1 each PO BID 7 Days #14 tablet 07/03/21 Unknown Rx [Augmentin 875-125 Tablet] Chlorhexidine Mouthwash [Peridex] 15 ml MM BID #1 bottle 07/23/21 Unknown Rx Lidocaine Viscous 2% 5 ml MM Q3H PRN #120 udc 07/23/21 Unknown Rx traMADoL [Ultram 50 MG tab] 50 mg PO Q6HR PRN #12 tablet 07/23/21 Unknown Rx Butalb/Acetamin/Caff 50-325-40 1 each PO Q4H PRN #12 tablet 07/26/21 Unknown Rx [Fioricet 50-325-40] Cyclobenzaprine [Flexeril] 10 mg PO TID PRN #15 tablet 07/26/21 Unknown Rx Ibuprofen [Motrin] 800 mg PO Q8HR PRN #30 tablet 07/26/21 Unknown Rx ED Physical Exam - General Limitations: No Limitations General appearance: alert, in no apparent distress - Head Head exam: Present: atraumatic, normocephalic, normal inspection - Eye Eye exam: Present: normal appearance, PERRL, EOMI Pupils: Present: normal accommodation - ENT ENT exam: Present: normal exam, normal orophraynx, mucous membranes moist, TM's normal bilaterally, normal external ear exam, other (Palpable frontal sinus tenderness) - Neck Neck exam: Present: normal inspection, full ROM - Respiratory Respiratory exam: Present: normal lung sounds bilaterally. Absent: respiratory distress, wheezes, rales, stridor, chest wall tenderness, accessory muscle use, decreased breath sounds, prolonged expiratory - Cardiovascular Cardiovascular Exam: Present: regular rate, normal rhythm, normal heart sounds. Absent: systolic murmur, diastolic murmur, rubs, gallop - GI/Abdominal GI/Abdominal exam: Present: soft, normal bowel sounds. Absent: tenderness, guarding, rebound, hyperactive bowel sounds, hypoactive bowel sounds, organomegaly - Extremities Exam Extremities exam: Present: normal inspection, full ROM, normal capillary refill. Absent: tenderness - Back Exam Back exam: Present: normal inspection, full ROM, tenderness (Palpable lumbosacral paraspinal musculoskeletal tenderness), muscle spasm, paraspinal tenderness - Neurological Exam Neurological exam: Present: alert, oriented X3, CN II-XII intact, normal gait, reflexes normal - Psychiatric Psychiatric exam: Present: normal affect, normal mood, anxious - Skin Skin exam: Present: warm, dry, intact, normal color. Absent: rash ED Course Vital Signs 07/25/21 07/26/21 23:46 00:35 Temperature 98.0 F Pulse Rate 89 Respiratory 18 16 Rate Blood Pressure 141/90 O2 Sat by Pulse 96 Oximetry ED Medical Decision Making - Radiology Data Radiology results: report reviewed, image reviewed [facility] [address] [place] [address] Cat Scan Report Signed Patient: DUNIA WATT MR#: [id number] : 2000 Acct:[id number] Age/Sex: 20 / F ADM Date: 07/25/21 Loc: ED Attending Dr: Ordering Physician: KYLAH STEPHENS Date of Service: 07/25/21 Procedure(s): CT head/brain wo con Accession Number(s): [id number] cc: KYLAH STEPHENS CT HEAD WITHOUT CONTRAST INDICATION / CLINICAL INFORMATION: Severe headache. TECHNIQUE: All CT scans at this location are performed using CT dose reduction for ALARA by means of automated exposure control. COMPARISON: None available. FINDINGS: HEMORRHAGE: None. EXTRA-AXIAL SPACES: Normal in size and morphology for the patient's age. VENTRICULAR SYSTEM: Normal in size and morphology for the patient's age. CEREBRAL PARENCHYMA: No significant abnormality. No acute territorial infarct. MIDLINE SHIFT / HERNIATION: None. CEREBELLUM / BRAINSTEM: No significant abnormality. ORBITS: Normal as visualized. SOFT TISSUES: No significant abnormality. SKULL: No significant abnormality. PARANASAL SINUSES / MASTOID AIR CELLS: Normal as visualized. ADDITIONAL FINDINGS: None. IMPRESSION: 1. No acute intracranial abnormality. Signer Name: Kai Echavarria MD Signed: 07/26/2021 1:57 AM Workstation Name: [id number] Transcribed By: DT Dictated By: Nnamdi Echavarria MD Electronically Authenticated By: Nnamdi Echavarria MD Signed Date/Time: 07/26/21156 DD/ 5 TD/TT: - Medical Decision Making This is a nulliparous 20-year-old -[place]i female with past medical history of anxiety, asthma and morbid obesity presents to the ED with complaint of acute onset persistent severe headache which she describes as sharp, constant and pressure-like radiating from the frontal to the temporal scalp bilaterally for the last 1 week. Patient also complains of low back pain for the last 2 weeks. In the ED, patient is alert and oriented x3 and is not in any distress but anxious, crying in pain during the physical exam. Patient was treated for pain in the ED and the head CT scan without contrast showed no acute intracranial abnormalities or hemorrhage. Urinalysis unremarkable. On reevaluation, patient's pain is well controlled medications. Patient will discharge home on medications for pain and advised to follow-up with her primary care physician in 5 to 7 days for reevaluation. Patient was advised return to the ED immediately if symptoms get worse. - Differential Diagnosis Sinusitis; sinus headache; tension headache; migraine headaches; Critical care attestation.: If time is entered above; I have spent that time in minutes in the direct care of this critically ill patient, excluding procedure time. ED Disposition Clinical Impression: Sudden onset of severe headache, Spasm of muscle of lower back Disposition: HOME / SELF CARE / HOMELESS Is pt being admited?: No Does the pt Need Aspirin: No Condition: Stable Instructions: Muscle Cramps and Spasms, [id number], Tension Headache, Adult, [id number] Additional Instructions: All lab test results were reviewed and are all nonactionable. The head CT scan without contrast showed no acute intracranial abnormalities or hemorrhage. Therefore take medications with food, drink plenty of fluids and follow-up with your primary care physician in 5 to 7 days for reevaluation. Return to the ED immediately if symptoms get worse. Prescriptions: Butalb/Acetamin/Caff 50-325-40 [Fioricet 50-325-40] 1 each PO Q4H PRN #12 tablet PRN Reason: Headache Cyclobenzaprine [Flexeril] 10 mg PO TID PRN #15 tablet PRN Reason: Muscle Spasm Ibuprofen [Motrin] 800 mg PO Q8HR PRN #30 tablet PRN Reason: Pain , Severe (7-10) Referrals: [facility] [Provider Group] - 3-5 Days Time of Disposition: 02:11 Print Language: GREEK
== END 2021-07-26 02:54 | disposition home or self-care (01) ==
LOC: ED 23:11
DX: R51.9 Headache, unspecified (principal); M62.830 Muscle spasm of back; J45.909 Unspecified asthma, uncomplicated
CPT/HCPCS: 70450; 81001; 81025; 96374; 96375; 99284; J1200; J2765

== ENCOUNTER 2021-08-20 19:30 | Emergency (ER) | payer OTHER ==
[2021-08-20 20:03] VITALS: BP 158/101
--- NOTE | 2021-08-20 20:21 | Event Note ---
ED Screening Note Date of service: 08/20/21 Time: 20:21 ED Screening Note: Pleasant 20-year-old female presents emerged department complaint generalized weakness and headache over the past week. She states she went to go give plasma was told her potassium was a level 9. This initial assessment/diagnostic orders/clinical plan/treatment(s) is/are subject to change based on patients health status, clinical progression and re- assessment by fellow clinical providers in the ED. Further treatment and workup at subsequent clinical providers discretion. Patient/guardian urged not to elope from the ED as their condition may be serious if not clinically assessed and managed. Initial orders include: CBC, CMP, urinalysis, urine test, CT head, IV fluids, IV Reglan and Benadryl
[2021-08-20] MEDS ORDERED: diphenhydrAMINE 50 MG/ML VIAL IV ONE (20:22)
[2021-08-20] MEDS ORDERED: SODIUM CHLORIDE 0.9% 1000 ML 1,000 ML IV ONE (20:22)
[2021-08-20] MEDS ORDERED: METOCLOPRAMIDE 10 MG/2 ML INJ IV ONE (20:22)
[2021-08-20 20:52] LABS: Basophils # (Auto) 0.1 K/mm3 (0.0-0.1); Basophils % (Auto) 1.2 % (0.0-1.8); Eosinophils # (Auto) 0.2 K/mm3 (0.0-0.4); Eosinophils % (Auto) 1.4 % (0.0-4.3); Hematocrit 38.3 % (30.3-42.9); Hemoglobin 12.2 gm/dl (10.1-14.3); Lymphocytes # (Auto) 3.8 K/mm3 (1.2-5.4); Mean Corpuscular HGB Conc 32 % (30-34); Mean Corpuscular Volume 89 fl (79-97); Monocytes # (Auto) 0.7 K/mm3 (0.0-0.8); Platelet Count 331 K/mm3 (140-440); Red Blood Count 4.32 M/mm3 (3.65-5.03); Red Cell Distribution Width 13.1 % (13.2-15.2)
[2021-08-20 21:13] LABS: Alanine Aminotransferase 19 units/L (7-56); Albumin 4.8 g/dL (3.9-5); Blood Urea Nitrogen 8 mg/dL (7-17); Calcium 10.3 mg/dL (8.4-10.2); Hemolysis Index 9
[2021-08-20 21:20] LABS: BUN/Creatinine Ratio 11
--- NOTE | 2021-08-20 22:02 | Cat Scan Report ---
CT HEAD/BRAIN WO CON INDICATION / CLINICAL INFORMATION: 20 years Female; HEADACHE. TECHNIQUE: Routine CT head without contrast. All CT scans at this location are performed using CT dos e reduction for ALARA by means of automated exposure control. COMPARISON: 07/26/2021 FINDINGS: BRAIN / INTRACRANIAL CONTENTS: No acute hemorrhage, mass effect, midline shift, hydrocephalus, or acu te, large territorial infarct. No signs of significant atrophy or chronic infarct. No significant whi te matter abnormality seen. CRANIOCERVICAL JUNCTION: No significant abnormality. ORBITS: No significant abnormality of visualized orbits. SINUSES / MASTOIDS: Visualized paranasal sinuses and mastoid air cells are essentially clear. ADDITIONAL FINDINGS: None. IMPRESSION: 1. No focal mass, hemorrhage, hydrocephalus, or acute, large territorial infarct. Signer Name: New Nava MD, III Signed: 08/20/2021 9:57 PM Workstation Name: [id number]
[2021-08-20] MEDS ORDERED: BUTALB/ACETAMINOPHEN/CAFFEINE TAB PO ONE (22:34)
[2021-08-20] MEDS ORDERED: KETOROLAC 30 MG/1 ML INJ IV ONE (22:34)
--- NOTE | 2021-08-20 22:39 | Emergency Department Report ---
ED Headache HPI - General Chief Complaint: Headache Stated Complaint: HYPERTENSION,WEAK Source: patient Exam Limitations: no limitations - History of Present Illness Initial Comments: Patient is a nulliparous 20-year-old -[place] female with a history of asthma and anxiety who presents to the ED with complaint of acute onset persistent frontal headache that radiates to the temporal area bilaterally with nasal and sinus congestion with pressure with nausea for the last 1 week. Patient states that she has been taking [id number] medications with no relief. Patient denies dizziness, syncope, cough, sore throat, fever, chills, traumatic injury or fall, neck pain, chest pain or shortness of breath, vomiting, diarrhea, abdominal pain or change in vision. Timing/Duration: 1 week Quality: severe, pressure, sharp Head Injury Location: frontal, temporal Recent Head Trauma: frequent headaches Modifying Factors: improves with: other (None) Associated Symptoms: denies symptoms, facial pain, nausea/vomiting, nasal congestion, nasal drainage, sinus infection. denies: confusion, fatigue, fever/chills, flushing, loss of consciousness, numbness in legs/feet, rash, seizures, stiff neck, vision changes, weakness Allergies/Adverse Reactions: Allergies No Known Allergies Allergy (Verified 05/14/21 22:52) Home Medications: Ambulatory Orders Pantoprazole [Protonix] 40 mg PO QDAY #30 tablet 07/16/19 Albuterol Sulfate [Proventil Hfa] 2 puff IH Q4HR #1 hfa.aer.ad 09/19/20 Famotidine [Pepcid] 40 mg PO QHS #30 tablet 11/06/20 Amoxicillin/Potassium Clav [Augmentin 875-125 Tablet] 1 each PO BID #14 tablet 11/26/20 Promethazine [Phenergan] 25 mg PO Q6HR PRN #12 tab 11/26/20 Albuterol Mdi (or & Nicu Only) [ProAir HFA Inhaler] 2 puff IH QID PRN #8.5 gram 01/07/21 Benzonatate [Tessalon Perles] 100 mg PO Q8HR #30 capsule 01/07/21 hydrOXYzine PAMOATE [Vistaril] 25 mg PO Q6HR PRN #30 capsule 01/07/21 methylPREDNISolone [Medrol 4MG DOSEPAK (21 tabs)] 4 mg PO 21 #21 tab.ds.pk 04 /20/21 Dicyclomine [Bentyl] 20 mg PO Q6H PRN #30 tablet 03/16/21 Famotidine [Pepcid] 20 mg PO BID #60 tablet 03/16/21 Ondansetron [Zofran Odt] 4 mg PO Q6HR PRN #20 tab.rapdis 03/16/21 Amoxicillin/Potassium Clav [Augmentin 875-125 Tablet] 1 each PO BID 7 Days #14 tablet 07/03/21 Chlorhexidine Mouthwash [Peridex] 15 ml MM BID #1 bottle 07/23/21 Lidocaine Viscous 2% 5 ml MM Q3H PRN #120 udc 07/23/21 traMADoL [Ultram 50 MG tab] 50 mg PO Q6HR PRN #12 tablet 07/23/21 Cyclobenzaprine [Flexeril] 10 mg PO TID PRN #15 tablet 07/26/21 Ibuprofen [Motrin] 800 mg PO Q8HR PRN #30 tablet 07/26/21 Butalb/Acetamin/Caff 50-325-40 [Fioricet 50-325-40] 1 - 2 each PO Q4H PRN #15 tablet 08/20/21 Cetirizine HCl [Zyrtec 10mg tab] 10 mg PO DAILY #30 tablet 08/20/21 Doxycycline Hyclate [Lymepak] 100 mg PO Q12H #20 tablet 08/20/21 Ibuprofen [Motrin] 800 mg PO Q8HR PRN #30 tablet 08/20/21 ED Review of Systems ROS: Stated complaint: HYPERTENSION,WEAK Other details as noted in HPI Constitutional: malaise. denies: chills, weakness Eyes: denies: eye pain, eye discharge, vision change ENT: congestion. denies: ear pain, throat pain Respiratory: denies: cough, shortness of breath, SOB with exertion, SOB at rest, wheezing Cardiovascular: denies: chest pain, palpitations, dyspnea on exertion, orthopnea, edema, syncope, other Endocrine: no symptoms reported Gastrointestinal: nausea. denies: abdominal pain, vomiting, diarrhea Genitourinary: denies: urgency, dysuria, discharge Musculoskeletal: denies: back pain, joint swelling, arthralgia Skin: denies: rash, lesions Neurological: headache. denies: weakness, paresthesias Psychiatric: denies: anxiety, depression Hematological/Lymphatic: denies: easy bleeding, easy bruising ED Past Medical Hx - Past Medical History Previous Medical History?: Yes Hx Psychiatric Treatment: Yes (anxiety) Hx Asthma: Yes Additional medical history: sinus, Obesity/ALLERGICS/ ANXIETY, bronchitis - Surgical History Past Surgical History?: No - Social History Smoking Status: Never Smoker Substance Use Type: None - Medications Home Medications: Home Medications Medication Instructions Recorded Confirmed Last Taken Type Pantoprazole [Protonix] 40 mg PO QDAY #30 tablet 07/16/19 Unknown Rx Albuterol Sulfate [Proventil Hfa] 2 puff IH Q4HR #1 hfa.aer.ad 09/19/20 Unknown Rx Famotidine [Pepcid] 40 mg PO QHS #30 tablet 11/06/20 Unknown Rx Amoxicillin/Potassium Clav 1 each PO BID #14 tablet 11/26/20 Unknown Rx [Augmentin 875-125 Tablet] Promethazine [Phenergan] 25 mg PO Q6HR PRN #12 tab 11/26/20 Unknown Rx Albuterol Mdi (or & Nicu Only) 2 puff IH QID PRN #8.5 gram 01/07/21 Unknown Rx [ProAir HFA Inhaler] Benzonatate [Tessalon Perles] 100 mg PO Q8HR #30 capsule 01/07/21 Unknown Rx hydrOXYzine PAMOATE [Vistaril] 25 mg PO Q6HR PRN #30 capsule 01/07/21 Unknown Rx methylPREDNISolone [Medrol 4MG 4 mg PO 21 #21 tab.ds.pk 01/07/21 Unknown Rx DOSEPAK (21 tabs)] Dicyclomine [Bentyl] 20 mg PO Q6H PRN #30 tablet 03/16/21 Unknown Rx Famotidine [Pepcid] 20 mg PO BID #60 tablet 03/16/21 Unknown Rx Ondansetron [Zofran Odt] 4 mg PO Q6HR PRN #20 tab.rapdis 03/16/21 Unknown Rx Amoxicillin/Potassium Clav 1 each PO BID 7 Days #14 tablet 07/03/21 Unknown Rx [Augmentin 875-125 Tablet] Chlorhexidine Mouthwash [Peridex] 15 ml MM BID #1 bottle 07/23/21 Unknown Rx Lidocaine Viscous 2% 5 ml MM Q3H PRN #120 udc 11/03/21 Unknown Rx traMADoL [Ultram 50 MG tab] 50 mg PO Q6HR PRN #12 tablet 07/23/21 Unknown Rx Cyclobenzaprine [Flexeril] 10 mg PO TID PRN #15 tablet 07/26/21 Unknown Rx Ibuprofen [Motrin] 800 mg PO Q8HR PRN #30 tablet 07/26/21 Unknown Rx Butalb/Acetamin/Caff 50-325-40 1 - 2 each PO Q4H PRN #15 tablet 08/20/21 Unknown Rx [Fioricet 50-325-40] Cetirizine HCl [Zyrtec 10mg tab] 10 mg PO DAILY #30 tablet 08/20/21 Unknown Rx Doxycycline Hyclate [Lymepak] 100 mg PO Q12H #20 tablet 08/20/21 Unknown Rx Ibuprofen [Motrin] 800 mg PO Q8HR PRN #30 tablet 08/20/21 Unknown Rx ED Physical Exam - General Limitations: No Limitations General appearance: alert, in no apparent distress, anxious - Head Head exam: Present: atraumatic, normocephalic - Eye Eye exam: Present: normal appearance, PERRL, EOMI Pupils: Present: normal accommodation - ENT ENT exam: Present: normal orophraynx, mucous membranes moist, TM's normal bilaterally, normal external ear exam, other (Palpable frontal and maxillary sinus tenderness) - Neck Neck exam: Present: normal inspection, full ROM - Respiratory Respiratory exam: Present: normal lung sounds bilaterally. Absent: respiratory distress, wheezes, rales, rhonchi, stridor, chest wall tenderness, accessory muscle use, prolonged expiratory - Cardiovascular Cardiovascular Exam: Present: normal rhythm, tachycardia, normal heart sounds. Absent: systolic murmur, diastolic murmur, rubs, gallop - GI/Abdominal GI/Abdominal exam: Present: soft, normal bowel sounds. Absent: tenderness, guarding, rebound, hyperactive bowel sounds, hypoactive bowel sounds, organomegaly - Extremities Exam Extremities exam: Present: normal inspection, full ROM - Back Exam Back exam: Present: normal inspection, full ROM. Absent: tenderness, CVA tenderness (R), CVA tenderness (L), muscle spasm, paraspinal tenderness, vertebral tenderness - Neurological Exam Neurological exam: Present: alert, oriented X3, CN II-XII intact, normal gait, reflexes normal - Psychiatric Psychiatric exam: Present: normal affect, normal mood, anxious - Skin Skin exam: Present: warm, dry, intact, normal color. Absent: rash ED Course Vital Signs 08/20/21 20:00 Temperature 98.9 F Pulse Rate 109 H Respiratory 18 Rate Blood Pressure 158/101 [Left] O2 Sat by Pulse 98 Oximetry ED Medical Decision Making - Lab Data Result diagrams: 08/20/21 20:30 08/20/21 20:30 - Radiology Data Radiology results: report reviewed, image reviewed [facility] [address] [place] [address] Cat Scan Report Signed Patient: DUNIA WATT MR#: [id number] : 2000 Acct:[id number] Age/Sex: 20 / F ADM Date: 08/20/21 Loc: ED Attending Dr: Ordering Physician: KYLAH ALBERTO Date of Service: 08/20/21 Procedure(s): CT head/brain wo con Accession Number(s): [id number] cc: KYLAH ALBERTO CT HEAD/BRAIN WO CON INDICATION / CLINICAL INFORMATION: 20 years Female; HEADACHE. TECHNIQUE: Routine CT head without contrast. All CT scans at this location are performed using CT dose reduction for ALARA by means of automated exposure control. COMPARISON: 07/26/2021 FINDINGS: BRAIN / INTRACRANIAL CONTENTS: No acute hemorrhage, mass effect, midline shift, hydrocephalus, or acute, large territorial infarct. No signs of significant atrophy or chronic inf arct. No significant white matter abnormality seen. CRANIOCERVICAL JUNCTION: No significant abnormality. ORBITS: No significant abnormality of visualized orbits. SINUSES / MASTOIDS: Visualized paranasal sinuses and mastoid air cells are essentially clear. ADDITIONAL FINDINGS: None. IMPRESSION: 1. No focal mass, hemorrhage, hydrocephalus, or acute, large territorial infar ct. Signer Name: New Nava MD, III Signed: 08/20/2021 9:57 PM Workstation Name: [id number] Transcribed By: HR Dictated By: New Nava MD Electronically Authenticated By: New Nava MD Signed Date/Time: 08/20/212156 DD/ 55 TD/TT: Print - Medical Decision Making This is a nulliparous 20-year-old -[place] female with a history of asthma and anxiety who presents to the ED with complaint of acute onset persistent frontal headache that radiates to the temporal area bilaterally with nasal and sinus congestion with pressure with nausea for the last 1 week. Patient states that she has been taking [id number] medications with no relief. In the ED, patient is alert and oriented x3 and is not in any distress. Patient was treated in the ED for pain. The head CT scan without contrast showed no acute intracranial abnormalities or hemorrhage. Lab test results were reviewed and are all nonactionable. Patient was discharged home on medications and advised to follow-up with her primary care physician in 5 to 7 days for reevaluation. Patient was advised return to the ED immediately if symptoms get worse. - Differential Diagnosis Sinus headache; sinusitis; tension headache; anxiety Critical care attestation.: If time is entered above; I have spent that time in minutes in the direct care of this critically ill patient, excluding procedure time. ED Disposition Clinical Impression: Acute recurrent frontal sinusitis, Sinus headache, Anxiety as acute reaction to exceptional stress Disposition: 01 HOME / SELF CARE / HOMELESS Is pt being admited?: No Does the pt Need Aspirin: No Condition: Stable Instructions: Sinusitis, Adult, [id number], Generalized Anxiety Disorder, Adult Additional Instructions: The lab test results were reviewed and are all nonactionable. Head CT scan without contrast shows no acute intracranial abnormalities or hemorrhage. Therefore take medication with food, drink plenty of fluids and follow-up with your primary care physician in 5 to 7 days for reevaluation. Return to the ED immediately if symptoms get worse. Prescriptions: Butalb/Acetamin/Caff 50-325-40 [Fioricet 50-325-40] 1 - 2 each PO Q4H PRN #15 tablet PRN Reason: Headache Doxycycline Hyclate [Lymepak] 100 mg PO Q12H #20 tablet Ibuprofen [Motrin] 800 mg PO Q8HR PRN #30 tablet PRN Reason: Pain , Severe (7-10) Cetirizine HCl [Zyrtec 10mg tab] 10 mg PO DAILY #30 tablet Referrals: [facility] [Provider Group] - 3-5 Days Time of Disposition: 22:41 Print Language: NAMIBIAN
--- NOTE | 2021-08-22 12:06 | Electrocardiograph Report ---
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
== END 2021-08-20 23:08 | disposition home or self-care (01) ==
LOC: ED 19:30
DX: J01.11 Acute recurrent frontal sinusitis (principal); F41.1 Generalized anxiety disorder; F43.0 Acute stress reaction; J45.909 Unspecified asthma, uncomplicated; Z79.899 Other long term (current) drug therapy
CPT/HCPCS: 36415; 70450; 80053; 85025; 93005; 96361; 96374; 96375; 99284; J1200; J1885; J2765; J7030; Q0162

== ENCOUNTER 2021-09-16 15:45 | Emergency (ER) | payer SELFPAY ==
[2021-09-16 16:25] VITALS: BP 165/91
--- NOTE | 2021-09-16 16:42 | Emergency Department Report ---
ED Asthma HPI - General Chief Complaint: Adult Asthma Stated Complaint: SOB Time Seen by Provider: 09/16/21 16:31 Source: patient Mode of arrival: Ambulatory Limitations: No Limitations - History of Present Illness Initial Comments: Patient is a 20-year-old F [place] female with past medical history of asthma who is presenting with flulike/Covid-like symptoms. Patient states that for the past 4 days she has had some body aches fever cough. Patient now also states she has a headache with pressure in the mid face. Denies shortness of breath nausea vomiting diarrhea. States she does have a history of asthma and she has run out of her albuterol inhaler. States her symptoms were manageable until last night when she ran out of her albuterol and she felt as though she could not breathe last night. Patient did have a Covid test 3 days ago which was negative she took another one today but does not get the results was a few more days. - Related Data Previous Rx's Medication Instructions Recorded Last Taken Type Pantoprazole [Protonix] 40 mg PO QDAY #30 tablet 07/16/19 Unknown Rx Albuterol Sulfate [Proventil Hfa] 2 puff IH Q4HR #1 hfa.aer.ad 09/19/20 Unknown Rx Famotidine [Pepcid] 40 mg PO QHS #30 tablet 11/06/20 Unknown Rx Amoxicillin/Potassium Clav 1 each PO BID #14 tablet 11/26/20 Unknown Rx [Augmentin 875-125 Tablet] Promethazine [Phenergan] 25 mg PO Q6HR PRN #12 tab 11/26/20 Unknown Rx Albuterol Mdi (or & Nicu Only) 2 puff IH QID PRN #8.5 gram 01/07/21 Unknown Rx [ProAir HFA Inhaler] Benzonatate [Tessalon Perles] 100 mg PO Q8HR #30 capsule 01/07/21 Unknown Rx hydrOXYzine PAMOATE [Vistaril] 25 mg PO Q6HR PRN #30 capsule 01/07/21 Unknown Rx methylPREDNISolone [Medrol 4MG 4 mg PO 21 #21 tab.ds.pk 01/07/21 Unknown Rx DOSEPAK (21 tabs)] Dicyclomine [Bentyl] 20 mg PO Q6H PRN #30 tablet 03/16/21 Unknown Rx Famotidine [Pepcid] 20 mg PO BID #60 tablet 03/16/21 Unknown Rx Ondansetron [Zofran Odt] 4 mg PO Q6HR PRN #20 tab.rapdis 03/16/21 Unknown Rx Amoxicillin/Potassium Clav 1 each PO BID 7 Days #14 tablet 07/03/21 Unknown Rx [Augmentin 875-125 Tablet] Chlorhexidine Mouthwash [Peridex] 15 ml MM BID #1 bottle 07/23/21 Unknown Rx Lidocaine Viscous 2% 5 ml MM Q3H PRN #120 udc 07/23/21 Unknown Rx traMADoL [Ultram 50 MG tab] 50 mg PO Q6HR PRN #12 tablet 07/23/21 Unknown Rx Cyclobenzaprine [Flexeril] 10 mg PO TID PRN #15 tablet 07/26/21 Unknown Rx Ibuprofen [Motrin] 800 mg PO Q8HR PRN #30 tablet 07/26/21 Unknown Rx Butalb/Acetamin/Caff 50-325-40 1 - 2 each PO Q4H PRN #15 tablet 08/20/21 Unknown Rx [Fioricet 50-325-40] Cetirizine HCl [Zyrtec 10mg tab] 10 mg PO DAILY #30 tablet 08/20/21 Unknown Rx Doxycycline Hyclate [Lymepak] 100 mg PO Q12H #20 tablet 08/20/21 Unknown Rx Ibuprofen [Motrin] 800 mg PO Q8HR PRN #30 tablet 08/20/21 Unknown Rx Amoxicillin/Potassium Clav 1 each PO BID #14 tablet 09/16/21 Unknown Rx [Augmentin 875-125 Tablet] Benzonatate [Tessalon Perles] 100 mg PO Q8HR #10 capsule 09/16/21 Unknown Rx Dexamethasone [Decadron] 6 mg PO DAILY #7 tablet 09/16/21 Unknown Rx Fluticasone [Flonase] 1 spray NS QDAY #1 bottle 09/16/21 Unknown Rx Allergies Allergy/AdvReac Type Severity Reaction Status Date / Time No Known Allergies Allergy Verified 05/14/21 22:52 ED Review of Systems ROS: Stated complaint: SOB Other details as noted in HPI Comment: All other systems reviewed and negative ED Past Medical Hx - Past Medical History Hx Psychiatric Treatment: Yes (anxiety) Hx Asthma: Yes Additional medical history: sinus, Obesity/ALLERGICS/ ANXIETY, bronchitis - Social History Smoking Status: Never Smoker Substance Use Type: None - Medications Home Medications: Home Medications Medication Instructions Recorded Confirmed Last Taken Type Pantoprazole [Protonix] 40 mg PO QDAY #30 tablet 07/16/19 Unknown Rx Albuterol Sulfate [Proventil Hfa] 2 puff IH Q4HR #1 hfa.aer.ad 09/19/20 Unknown Rx Famotidine [Pepcid] 40 mg PO QHS #30 tablet 11/06/20 Unknown Rx Amoxicillin/Potassium Clav 1 each PO BID #14 tablet 11/26/20 Unknown Rx [Augmentin 875-125 Tablet] Promethazine [Phenergan] 25 mg PO Q6HR PRN #12 tab 11/26/20 Unknown Rx Albuterol Mdi (or & Nicu Only) 2 puff IH QID PRN #8.5 gram 01/07/21 Unknown Rx [ProAir HFA Inhaler] Benzonatate [Tessalon Perles] 100 mg PO Q8HR #30 capsule 01/07/21 Unknown Rx hydrOXYzine PAMOATE [Vistaril] 25 mg PO Q6HR PRN #30 capsule 01/07/21 Unknown Rx methylPREDNISolone [Medrol 4MG 4 mg PO 21 #21 tab.ds.pk 01/07/21 Unknown Rx DOSEPAK (21 tabs)] Dicyclomine [Bentyl] 20 mg PO Q6H PRN #30 tablet 03/16/21 Unknown Rx Famotidine [Pepcid] 20 mg PO BID #60 tablet 03/16/21 Unknown Rx Ondansetron [Zofran Odt] 4 mg PO Q6HR PRN #20 tab.rapdis 03/16/21 Unknown Rx Amoxicillin/Potassium Clav 1 each PO BID 7 Days #14 tablet 07/03/21 Unknown Rx [Augmentin 875-125 Tablet] Chlorhexidine Mouthwash [Peridex] 15 ml MM BID #1 bottle 07/23/21 Unknown Rx Lidocaine Viscous 2% 5 ml MM Q3H PRN #120 udc 07/23/21 Unknown Rx traMADoL [Ultram 50 MG tab] 50 mg PO Q6HR PRN #12 tablet 07/23/21 Unknown Rx Cyclobenzaprine [Flexeril] 10 mg PO TID PRN #15 tablet 07/26/21 Unknown Rx Ibuprofen [Motrin] 800 mg PO Q8HR PRN #30 tablet 07/26/21 Unknown Rx Butalb/Acetamin/Caff 50-325-40 1 - 2 each PO Q4H PRN #15 tablet 08/20/21 Unknown Rx [Fioricet 50-325-40] Cetirizine HCl [Zyrtec 10mg tab] 10 mg PO DAILY #30 tablet 08/20/21 Unknown Rx Doxycycline Hyclate [Lymepak] 100 mg PO Q12H #20 tablet 08/20/21 Unknown Rx Ibuprofen [Motrin] 800 mg PO Q8HR PRN #30 tablet 08/20/21 Unknown Rx Amoxicillin/Potassium Clav 1 each PO BID #14 tablet 09/16/21 Unknown Rx [Augmentin 875-125 Tablet] Benzonatate [Tessalon Perles] 100 mg PO Q8HR #10 capsule 09/16/21 Unknown Rx Dexamethasone [Decadron] 6 mg PO DAILY #7 tablet 09/16/21 Unknown Rx Fluticasone [Flonase] 1 spray NS QDAY #1 bottle 09/16/21 Unknown Rx ED Physical Exam - General Limitations: No Limitations General appearance: alert, in no apparent distress - Head Head exam: Present: atraumatic, normocephalic, other (Tenderness to the frontal and ethmoid sinus region) - Eye Eye exam: Present: normal appearance, PERRL, EOMI - ENT ENT exam: Present: mucous membranes moist - Neck Neck exam: Present: normal inspection - Respiratory Respiratory exam: Present: normal lung sounds bilaterally. Absent: respiratory distress - Cardiovascular Cardiovascular Exam: Present: regular rate, normal rhythm, normal heart sounds. Absent: systolic murmur, diastolic murmur, rubs, gallop - GI/Abdominal GI/Abdominal exam: Present: soft, normal bowel sounds. Absent: distended, tenderness, guarding, rebound - Extremities Exam Extremities exam: Present: normal inspection - Back Exam Back exam: Present: normal inspection - Neurological Exam Neurological exam: Present: alert, oriented X3 - Psychiatric Psychiatric exam: Present: normal affect, normal mood - Skin Skin exam: Present: warm, dry, intact, normal color. Absent: rash ED Course Vital Signs 09/16/21 16:24 Temperature 98.6 F Pulse Rate 87 Respiratory 18 Rate Blood Pressure 165/91 [Right] O2 Sat by Pulse 96 Oximetry ED Medical Decision Making - Medical Decision Making Patient will have refills of her albuterol given. Will also start the patient on Decadron. Because of patient's tenderness to the face also cover the patient for a sinus infection as well. Patient lungs are clear vital signs are stable and she is stable for discharge. Patient is not wheezing at this time. Critical care attestation.: If time is entered above; I have spent that time in minutes in the direct care of this critically ill patient, excluding procedure time. ED Disposition Clinical Impression: Asthma Qualifiers: Asthma severity: mild Asthma persistence: unspecified Asthma complication type: uncomplicated Qualified Code(s): J45.909 - Unspecified asthma, uncomplicated Acute sinusitis Qualifiers: Sinusitis location: frontal Recurrence: non-recurrent Qualified Code(s): J01.10 - Acute frontal sinusitis, unspecified Disposition: 01 HOME / SELF CARE / HOMELESS Is pt being admited?: No Does the pt Need Aspirin: No Condition: Stable Instructions: Asthma (ED), Asthma, Adult, Sinusitis, Adult Referrals: CORY JEFF MD [Referring] - 3-5 Days Time of Disposition: 16:42
== END 2021-09-16 17:00 | disposition home or self-care (01) ==
LOC: ED 15:45
DX: J45.909 Unspecified asthma, uncomplicated (principal); J01.10 Acute frontal sinusitis, unspecified
CPT/HCPCS: 99282

== ENCOUNTER 2022-01-12 17:37 | Emergency (ER) | payer MEDICAID, OTHER ==
[2022-01-12 19:48] VITALS: BP 148/95
[2022-01-12] MEDS ORDERED: SODIUM CHLORIDE 0.9% 1000 ML 1,000 ML IV ONE (21:55)
[2022-01-12] MEDS ORDERED: KETOROLAC 30 MG/1 ML INJ IV ONE (21:55)
[2022-01-12] MEDS ORDERED: diphenhydrAMINE 50 MG/ML VIAL IV ONE (21:55)
[2022-01-12] MEDS ORDERED: METOCLOPRAMIDE 10 MG/2 ML INJ IV STA (21:56)
--- NOTE | 2022-01-12 22:00 | Emergency Department Report ---
ED Headache HPI - General Chief Complaint: Headache Stated Complaint: HEADACHE X 3DAY Time Seen by Provider: 01/12/22 21:54 - History of Present Illness Initial Comments: 21-year-old obese -[place] female with a past medical history of migraine headaches presents emerged department complaining of acute on chronic migraine flareup. She was seen in an emergency department a long ago for similar symptoms and treated for migrainous symptoms completely resolved. A couple days ago the symptoms began to reemerge and now has a dull throbbing biparietal headache that is not responding to dark therapy and [id number] medications. She reports positive phonophobia and is unsure of scotomas. However reports no fever, chills, sweats. No neck pain, no nausea, no vomiting, no chest pain or palpitations``````````````` Allergies/Adverse Reactions: Allergies No Known Allergies Allergy (Verified 05/14/21 22:52) Home Medications: Ambulatory Orders Pantoprazole [Protonix] 40 mg PO QDAY #30 tablet 07/16/19 Albuterol Sulfate [Proventil Hfa] 2 puff IH Q4HR #1 hfa.aer.ad 09/19/20 Famotidine [Pepcid] 40 mg PO QHS #30 tablet 11/06/20 Amoxicillin/Potassium Clav [Augmentin 875-125 Tablet] 1 each PO BID #14 tablet 11/26/20 Promethazine [Phenergan] 25 mg PO Q6HR PRN #12 tab 11/26/20 Albuterol Mdi (or & Nicu Only) [ProAir HFA Inhaler] 2 puff IH QID PRN #8.5 gram 01/07/21 Benzonatate [Tessalon Perles] 100 mg PO Q8HR #30 capsule 01/07/21 hydrOXYzine PAMOATE [Vistaril] 25 mg PO Q6HR PRN #30 capsule 01/07/21 methylPREDNISolone [Medrol 4MG DOSEPAK (21 tabs)] 4 mg PO 21 #21 tab.ds.pk 01/07/21 Dicyclomine [Bentyl] 20 mg PO Q6H PRN #30 tablet 03/16/21 Famotidine [Pepcid] 20 mg PO BID #60 tablet 03/16/21 Ondansetron [Zofran Odt] 4 mg PO Q6HR PRN #20 tab.rapdis 03/16/21 Amoxicillin/Potassium Clav [Augmentin 875-125 Tablet] 1 each PO BID 7 Days #14 tablet 07/03/21 Chlorhexidine Mouthwash [Peridex] 15 ml MM BID #1 bottle 07/23/21 Lidocaine Viscous 2% 5 ml MM Q3H PRN #120 udc 07/23/21 traMADoL [Ultram 50 MG tab] 50 mg PO Q6HR PRN #12 tablet 07/23/21 Cyclobenzaprine [Flexeril] 10 mg PO TID PRN #15 tablet 07/26/21 Ibuprofen [Motrin] 800 mg PO Q8HR PRN #30 tablet 07/26/21 Butalb/Acetamin/Caff 50-325-40 [Fioricet 50-325-40] 1 - 2 each PO Q4H PRN #15 tablet 08/20/21 Cetirizine HCl [Zyrtec 10mg tab] 10 mg PO DAILY #30 tablet 08/20/21 Doxycycline Hyclate [Lymepak] 100 mg PO Q12H #20 tablet 08/20/21 Ibuprofen [Motrin] 800 mg PO Q8HR PRN #30 tablet 08/20/21 Amoxicillin/Potassium Clav [Augmentin 875-125 Tablet] 1 each PO BID #14 tablet 09/16/21 Benzonatate [Tessalon Perles] 100 mg PO Q8HR #10 capsule 09/16/21 Dexamethasone [Decadron] 6 mg PO DAILY #7 tablet 09/16/21 Fluticasone [Flonase] 1 spray NS QDAY #1 bottle 09/16/21 Butalbit/Acetamin/Caff/Codeine [Fioricet-Cod 11-859-63-30 Cap] 1 each PO Q6H PRN #20 capsule 01/12/22 ED Review of Systems ROS: Stated complaint: HEADACHE X 3DAY Other details as noted in HPI Comment: All other systems reviewed and negative ED Past Medical Hx - Past Medical History Hx Psychiatric Treatment: Yes (anxiety) Hx Asthma: Yes Additional medical history: sinus, Obesity/ALLERGICS/ ANXIETY, bronchitis - Social History Smoking Status: Never Smoker Substance Use Type: None - Medications Home Medications: Home Medications Medication Instructions Recorded Confirmed Last Taken Type Pantoprazole [Protonix] 40 mg PO QDAY #30 tablet 07/16/19 Unknown Rx Albuterol Sulfate [Proventil Hfa] 2 puff IH Q4HR #1 hfa.aer.ad 09/19/20 Unknown Rx Famotidine [Pepcid] 40 mg PO QHS #30 tablet 11/06/20 Unknown Rx Amoxicillin/Potassium Clav 1 each PO BID #14 tablet 11/26/20 Unknown Rx [Augmentin 875-125 Tablet] Promethazine [Phenergan] 25 mg PO Q6HR PRN #12 tab 11/26/20 Unknown Rx Albuterol Mdi (or & Nicu Only) 2 puff IH QID PRN #8.5 gram 01/07/21 Unknown Rx [ProAir HFA Inhaler] Benzonatate [Tessalon Perles] 100 mg PO Q8HR #30 capsule 01/07/21 Unknown Rx hydrOXYzine PAMOATE [Vistaril] 25 mg PO Q6HR PRN #30 capsule 01/07/21 Unknown Rx methylPREDNISolone [Medrol 4MG 4 mg PO 21 #21 tab.ds.pk 01/07/21 Unknown Rx DOSEPAK (21 tabs)] Dicyclomine [Bentyl] 20 mg PO Q6H PRN #30 tablet 03/16/21 Unknown Rx Famotidine [Pepcid] 20 mg PO BID #60 tablet 03/16/21 Unknown Rx Ondansetron [Zofran Odt] 4 mg PO Q6HR PRN #20 tab.rapdis 03/16/21 Unknown Rx Amoxicillin/Potassium Clav 1 each PO BID 7 Days #14 tablet 07/03/21 Unknown Rx [Augmentin 875-125 Tablet] Chlorhexidine Mouthwash [Peridex] 15 ml MM BID #1 bottle 07/23/21 Unknown Rx Lidocaine Viscous 2% 5 ml MM Q3H PRN #120 udc 07/23/21 Unknown Rx traMADoL [Ultram 50 MG tab] 50 mg PO Q6HR PRN #12 tablet 07/23/21 Unknown Rx Cyclobenzaprine [Flexeril] 10 mg PO TID PRN #15 tablet 07/26/21 Unknown Rx Ibuprofen [Motrin] 800 mg PO Q8HR PRN #30 tablet 07/26/21 Unknown Rx Butalb/Acetamin/Caff 50-325-40 1 - 2 each PO Q4H PRN #15 tablet 08/20/21 Unknown Rx [Fioricet 50-325-40] Cetirizine HCl [Zyrtec 10mg tab] 10 mg PO DAILY #30 tablet 08/20/21 Unknown Rx Doxycycline Hyclate [Lymepak] 100 mg PO Q12H #20 tablet 08/20/21 Unknown Rx Ibuprofen [Motrin] 800 mg PO Q8HR PRN #30 tablet 08/20/21 Unknown Rx Amoxicillin/Potassium Clav 1 each PO BID #14 tablet 09/16/21 Unknown Rx [Augmentin 875-125 Tablet] Benzonatate [Tessalon Perles] 100 mg PO Q8HR #10 capsule 09/16/21 Unknown Rx Dexamethasone [Decadron] 6 mg PO DAILY #7 tablet 09/16/21 Unknown Rx Fluticasone [Flonase] 1 spray NS QDAY #1 bottle 09/16/21 Unknown Rx Butalbit/Acetamin/Caff/Codeine 1 each PO Q6H PRN #20 capsule 01/12/22 Unknown Rx [Fioricet-Cod 55-011-52-30 Cap] ED Physical Exam - General Limitations: No Limitations General appearance: alert, in no apparent distress - Head Head exam: Present: atraumatic, normocephalic, normal inspection - Eye Eye exam: Present: normal appearance, PERRL, EOMI. Absent: nystagmus Pupils: Present: normal accommodation - ENT ENT exam: Present: normal exam, mucous membranes moist - Neck Neck exam: Present: normal inspection, full ROM. Absent: tenderness, meningismus, lymphadenopathy - Respiratory Respiratory exam: Present: normal lung sounds bilaterally. Absent: respiratory distress - Cardiovascular Cardiovascular Exam: Present: regular rate, normal rhythm. Absent: systolic murmur, diastolic murmur, rubs, gallop - GI/Abdominal GI/Abdominal exam: Present: soft, normal bowel sounds - Extremities Exam Extremities exam: Present: normal inspection - Back Exam Back exam: Present: normal inspection - Neurological Exam Neurological exam: Present: alert, oriented X3, CN II-XII intact, normal gait - Psychiatric Psychiatric exam: Present: normal affect, normal mood. Absent: depressed, agitated, flat affect, manic - Skin Skin exam: Present: warm, dry, intact, normal color. Absent: rash ED Course Vital Signs 01/12/22 19:20 Temperature 98.3 F Pulse Rate 90 Respiratory 18 Rate Blood Pressure 148/95 O2 Sat by Pulse 98 Oximetry ED Medical Decision Making - Radiology Data Radiology results: report reviewed [facility] [address] [id number] Cat Scan Report Signed Patient: DUNIA WATT MR#: [id number] : 2000 Acct:[id number] Age/Sex: 21 / F ADM Date: 01/12/22 Loc: ED Attending Dr: Ordering Physician: KYLAH HANKINS Date of Service: 01/12/22 Procedure(s): CT head/brain wo con Accession Number(s): [id number] cc: KYLAH HANKINS CT HEAD WITHOUT CONTRAST INDICATION / CLINICAL INFORMATION: headache. TECHNIQUE: All CT scans at this location are performed using CT dose reduction for ALARA by means of automated exposure control. COMPARISON: CT head without contrast from 08/20/2021. FINDINGS: BRAIN PARENCHYMA: No acute intracranial hemorrhage. No evidence of recent infarct. No mass effect or midline shift. VENTRICULAR SYSTEM/EXTRA-AXIAL SPACES: Ventricles are normal for age. No extra- axial fluid collection. ORBITS: Normal as visualized. SKELETAL SYSTEM/SOFT TISSUES: Normal bones and soft tissues. PARANASAL SINUSES/MASTOID AIR CELLS: No significant abnormality. ADDITIONAL FINDINGS: None. IMPRESSION: 1. No acute intracranial abnormality. Signer Name: Sean Akbar MD Signed: 01/12/2022 10:34 PM Workstation Name: [id number] Transcribed By: [place] Dictated By: Sean Akbar MD Electronically Authenticated By: Sean Akbar MD Signed Date/Time: 01/12/222233 DD/ 30 - Medical Decision Making This patient presents with a headache most consistent with migraine. Differential diagnosis includes migraine versus tension type headache. No headache red flags. Neurologic exam without evidence of meningismus, focal neurologic findings.Based on the patient's history and physical there is very low clinical suspicion for significant intracranial pathology. The headache was NOT sudden onset, NOT maximal at onset, there are NO neurologic findings, the patient does NOT have a fever, the patient does NOT have any jaw claudication, the patient does NOT endorse a clotting disorder, patient DENIES any trauma or eye pain and the headache is NOT associated with dizziness or ataxia. Presentation not consistent with acute intracranial bleed to include SAH (lack of risk factors, headache history). Presentation not consistent with acute [employer] infection to include meningitis or brain abscess, Temporal arteritis unlikely, as is acute angle closure glaucoma given history and physical findings. Presentation not consistent with other acute, emergent causes of headache at this time. Plan to treat symptomatically with pain medication. No indication for imaging/LP at this time. Plan: pain medication, CT brain which was normal serial reassessment Critical care attestation.: If time is entered above; I have spent that time in minutes in the direct care of this critically ill patient, excluding procedure time. ED Disposition Clinical Impression: Migraine Disposition: 01 HOME / SELF CARE / HOMELESS Is pt being admited?: No Does the pt Need Aspirin: No Condition: Stable Instructions: Recurrent Migraine Headache, Recurrent Migraine Headache, [id number], Migraine Headache Prescriptions: Butalbit/Acetamin/Caff/Codeine [Fioricet-Cod 59-631-55-30 Cap] 1 each PO Q6H PRN #20 capsule PRN Reason: Headache Referrals: PRIMARY CAREMD [Primary Care Provider] - 3-5 Days CHRISTINE ESQUIVEL MD [Staff Physician] - 3-5 Days
--- NOTE | 2022-01-12 22:38 | Cat Scan Report ---
CT HEAD WITHOUT CONTRAST INDICATION / CLINICAL INFORMATION: headache. TECHNIQUE: All CT scans at this location are performed using CT dose reduction for ALARA by means of automated exposure control. COMPARISON: CT head without contrast from 08/20/2021. FINDINGS: BRAIN PARENCHYMA: No acute intracranial hemorrhage. No evidence of recent infarct. No mass effect or midline shift. VENTRICULAR SYSTEM/EXTRA-AXIAL SPACES: Ventricles are normal for age. No extra-axial fluid collection . ORBITS: Normal as visualized. SKELETAL SYSTEM/SOFT TISSUES: Normal bones and soft tissues. PARANASAL SINUSES/MASTOID AIR CELLS: No significant abnormality. ADDITIONAL FINDINGS: None. IMPRESSION: 1. No acute intracranial abnormality. Signer Name: Sean Akbar MD Signed: 01/12/2022 10:34 PM Workstation Name: [id number]
[2022-01-13] MEDS ORDERED: METOCLOPRAMIDE 10 MG/2 ML INJ IV STA (00:51)
[2022-01-13] MEDS ORDERED: KETOROLAC 30 MG/1 ML INJ IV ONE (00:55)
[2022-01-13] MEDS ORDERED: diphenhydrAMINE 50 MG/ML VIAL IV ONE (00:55)
== END 2022-01-13 01:32 | disposition home or self-care (01) ==
LOC: ED 17:37
DX: G43.909 Migraine, unspecified, not intractable, without status migrainosus (principal); F41.9 Anxiety disorder, unspecified; J45.909 Unspecified asthma, uncomplicated
CPT/HCPCS: 70450; 96361; 96374; 96375; 99283; J1200; J1885; J2765; J7030

== ENCOUNTER 2022-03-15 21:44 | Emergency (ER) | payer OTHER ==
[2022-03-15] MEDS ORDERED: FAMOTIDINE 20 MG/2 ML INJ IV ONE (22:08)
[2022-03-15] MEDS ORDERED: methylPREDNISolone Sod Succinate 125 MG/2 ML INJ IV ONE (22:08)
[2022-03-15] MEDS ORDERED: diphenhydrAMINE 50 MG/ML VIAL IV ONE (22:08)
--- NOTE | 2022-03-15 22:10 | Emergency Department Report ---
HPI - General Chief Complaint: Allergic Reaction PUI?: No Time Seen by Provider: 03/15/22 22:08 - HPI HPI: This is a 21-year-old female who denies medical history came in today with concerns of tongue numbness after she had Imitrex for the first time of her life. According patient she took this medication about 20 minutes ago. Patient denies any other discomfort denies fever chill night sweat dizziness blurred vision lightheadedness headache tinnitus ear pain runny nose sore throat loss of taste loss of smell lip swelling tongue swelling chest pain palpitation short breath cough abdominal pain nausea vomiting diarrhea constipation joint pain muscle pain new rash heat or cold intolerance. ED Past Medical Hx - Past Medical History Previous Medical History?: Yes Hx Heart Attack/AMI: Yes Hx Psychiatric Treatment: Yes (anxiety) Hx Asthma: Yes Additional medical history: sinus, Obesity/ALLERGICS/ ANXIETY, bronchitis - Surgical History Past Surgical History?: No - Social History Smoking Status: Never Smoker Substance Use Type: None - Medications Home Medications: Home Medications Medication Instructions Recorded Confirmed Last Taken Type Pantoprazole [Protonix] 40 mg PO QDAY #30 tablet 07/16/19 Unknown Rx Albuterol Sulfate [Proventil Hfa] 2 puff IH Q4HR #1 hfa.aer.ad 09/19/20 Unknown Rx Famotidine [Pepcid] 40 mg PO QHS #30 tablet 11/06/20 Unknown Rx Amoxicillin/Potassium Clav 1 each PO BID #14 tablet 11/26/20 Unknown Rx [Augmentin 875-125 Tablet] Promethazine [Phenergan] 25 mg PO Q6HR PRN #12 tab 11/26/20 Unknown Rx Albuterol Mdi (or & Nicu Only) 2 puff IH QID PRN #8.5 gram 01/07/21 Unknown Rx [ProAir HFA Inhaler] Benzonatate [Tessalon Perles] 100 mg PO Q8HR #30 capsule 01/07/21 Unknown Rx hydrOXYzine PAMOATE [Vistaril] 25 mg PO Q6HR PRN #30 capsule 01/07/21 Unknown Rx methylPREDNISolone [Medrol 4MG 4 mg PO 21 #21 tab.ds.pk 01/07/21 Unknown Rx DOSEPAK (21 tabs)] Dicyclomine [Bentyl] 20 mg PO Q6H PRN #30 tablet 03/16/21 Unknown Rx Famotidine [Pepcid] 20 mg PO BID #60 tablet 03/16/21 Unknown Rx Ondansetron [Zofran Odt] 4 mg PO Q6HR PRN #20 tab.rapdis 03/16/21 Unknown Rx Amoxicillin/Potassium Clav 1 each PO BID 7 Days #14 tablet 07/03/21 Unknown Rx [Augmentin 875-125 Tablet] Chlorhexidine Mouthwash [Peridex] 15 ml MM BID #1 bottle 07/23/21 Unknown Rx Lidocaine Viscous 2% 5 ml MM Q3H PRN #120 udc 07/23/21 Unknown Rx traMADoL [Ultram 50 MG tab] 50 mg PO Q6HR PRN #12 tablet 07/23/21 Unknown Rx Cyclobenzaprine [Flexeril] 10 mg PO TID PRN #15 tablet 07/26/21 Unknown Rx Ibuprofen [Motrin] 800 mg PO Q8HR PRN #30 tablet 07/26/21 Unknown Rx Butalb/Acetamin/Caff 50-325-40 1 - 2 each PO Q4H PRN #15 tablet 08/20/21 Unknown Rx [Fioricet 50-325-40] Cetirizine HCl [Zyrtec 10mg tab] 10 mg PO DAILY #30 tablet 08/20/21 Unknown Rx Doxycycline Hyclate [Lymepak] 100 mg PO Q12H #20 tablet 08/20/21 Unknown Rx Ibuprofen [Motrin] 800 mg PO Q8HR PRN #30 tablet 08/20/21 Unknown Rx Amoxicillin/Potassium Clav 1 each PO BID #14 tablet 09/16/21 Unknown Rx [Augmentin 875-125 Tablet] Benzonatate [Tessalon Perles] 100 mg PO Q8HR #10 capsule 09/16/21 Unknown Rx Dexamethasone [Decadron] 6 mg PO DAILY #7 tablet 09/16/21 Unknown Rx Fluticasone [Flonase] 1 spray NS QDAY #1 bottle 09/16/21 Unknown Rx Butalbit/Acetamin/Caff/Codeine 1 each PO Q6H PRN #20 capsule 01/12/22 Unknown Rx [Fioricet-Cod 69-582-67-30 Cap] ED Review of Systems ROS: Stated complaint: ALLERGIC REACTION TO MEDS, ELEVATED BP Other details as noted in HPI Comment: All other systems reviewed and negative Constitutional: no symptoms reported Eyes: as per HPI ENT: as per HPI, other (tongue numbness) Respiratory: no symptoms reported Cardiovascular: as per HPI Endocrine: no symptoms reported, see HPI Gastrointestinal: as per HPI Genitourinary: as per HPI Musculoskeletal: as per HPI Skin: as per HPI Neurological: as per HPI Psychiatric: as per HPI Hematological/Lymphatic: as per HPI Physical Exam - Physical Exam Vital Signs: Vital Signs 03/15/22 21:48 Temperature 99.4 F Pulse Rate 90 Respiratory 18 Rate Blood Pressure 152/94 O2 Sat by Pulse 96 Oximetry General: NCAT, PERRLA, EOMI, NO TONGUE/LIP/UVLA SWELLING. +S1/2, -M/R/G, CTAB, - W/R/C, +BS, SNTNDNP, FULL ROM OF ALL EXTREMITIES AND NO RASH/LESION. CNII-XII GROSSLY INTACT; NO LATERALIZATION. NORMAL MOOD BUT APPEARS ANXIOUS. ED Course Vital Signs 03/15/22 21:48 Temperature 99.4 F Pulse Rate 90 Respiratory 18 Rate Blood Pressure 152/94 O2 Sat by Pulse 96 Oximetry ED Medical Decision Making - Lab Data Result diagrams: 03/15/22 22:32 03/15/22 22:32 - Medical Decision Making Significant improved. Patient endorsed headache I will give her some pain medication for the headache. Patient was referred to make a follow-up appoint with primary care provider to be seen within 3 days for further outpatient evaluation. Patient was referred to return to the ER if there are any new symptoms occur sudden worsening. Critical care attestation.: If time is entered above; I have spent that time in minutes in the direct care of this critically ill patient, excluding procedure time. ED Disposition Clinical Impression: Allergic reaction, Headache Disposition: 01 HOME / SELF CARE / HOMELESS Is pt being admited?: No Does the pt Need Aspirin: No Condition: Stable Time of Disposition: 01:43
[2022-03-15 23:11] LABS: Basophils % (Auto) 0.4 % (0.0-1.8); Eosinophils # (Auto) 0.1 K/mm3 (0.0-0.4); Eosinophils % (Auto) 0.8 % (0.0-4.3); Hematocrit 38.9 % (30.3-42.9); Hemoglobin 12.5 gm/dl (10.1-14.3); Lymphocytes # (Auto) 3.5 K/mm3 (1.2-5.4); Lymphocytes % (Auto) 38.3 % (13.4-35.0); Mean Corpuscular HGB Conc 32 % (30-34); Mean Corpuscular Volume 89 fl (79-97); Monocytes # (Auto) 0.4 K/mm3 (0.0-0.8); Monocytes % (Auto) 4.4 % (0.0-7.3); Platelet Count 312 K/mm3 (140-440); Red Blood Count 4.36 M/mm3 (3.65-5.03); Red Cell Distribution Width 13.2 % (13.2-15.2)
[2022-03-15 23:59] LABS: BUN/Creatinine Ratio 8; Blood Urea Nitrogen 7 mg/dL (7-17); Calcium 10.3 mg/dL (8.4-10.2); Hemolysis Index 4
[2022-03-16] MEDS ORDERED: KETOROLAC 30 MG/1 ML INJ IV ONE (01:38)
[2022-03-16 02:01] VITALS: BP 144/94
== END 2022-03-16 02:01 | disposition home or self-care (01) ==
LOC: ED 21:44
DX: T78.40XA Allergy, unspecified, initial encounter (principal); R51.9 Headache, unspecified; F41.9 Anxiety disorder, unspecified; J45.909 Unspecified asthma, uncomplicated; E66.9 Obesity, unspecified; X58.XXXA Exposure to other specified factors, initial encounter
CPT/HCPCS: 36415; 80048; 85025; 96374; 96375; 99283; J1200; J1885; J2930; J3490

== ENCOUNTER 2022-05-10 07:05 | Emergency (ER) | payer OTHER ==
[2022-05-10] MEDS ORDERED: diphenhydrAMINE 50 MG/ML VIAL IV ONE (07:43)
[2022-05-10] MEDS ORDERED: dexAMETHasone 20 MG/5 ML VIAL IV ONE (07:43)
[2022-05-10] MEDS ORDERED: FAMOTIDINE 20 MG/2 ML INJ IV ONE (07:43)
[2022-05-10] MEDS ORDERED: SODIUM CHLORIDE 0.9% 1000 ML 1,000 ML IV ONE (07:43)
--- NOTE | 2022-05-10 09:08 | Emergency Department Report ---
ED Allergic Reaction HPI - General Chief complaint: Allergic Reaction Stated complaint: ALLERGIC REACTION Time Seen by Provider: 05/10/22 07:41 Source: patient Mode of arrival: Ambulatory Limitations: No Limitations - History of Present Illness Initial Comments: This is a 21-year-old female nontoxic, well nourished in appearance, no acute signs of distress presents to the ED with c/o of diffuse itching that started last night and worsened this morning. Patient states she is currently being treated for sinusitis by her primary care doctor with amoxicillin and been prescribed a medication that is unknown for her sore throat which she believes caused her to have allergic reaction. Patient states it is itching. Patient denies any rash. Patient denies any drooling, hoarseness or facial swelling. Patient denies any trauma. She denies any fever, chills, nausea, vomiting, chest pain, shortness of breath, headache, stiff neck, numbness or tingling. Patient states allergies to sumatriptan. MD Complaint: allergic reaction -: days(s) Exposure: medication Symptoms: itching. denies: rash, facial swelling, lip swelling, difficulty swallowing, difficulty breathing, orolingual swelling, hoarseness, syncopy, dizziness, nausea, vomiting, abdominal pain Treatment Prior to Arrival: none Previous Allergy History: none - Related Data Previous Rx's Medication Instructions Recorded Last Taken Type Pantoprazole [Protonix] 40 mg PO QDAY #30 tablet 07/16/19 Unknown Rx Albuterol Sulfate [Proventil Hfa] 2 puff IH Q4HR #1 hfa.aer.ad 09/19/20 Unknown Rx Famotidine [Pepcid] 40 mg PO QHS #30 tablet 11/06/20 Unknown Rx Amoxicillin/Potassium Clav 1 each PO BID #14 tablet 11/26/20 Unknown Rx [Augmentin 875-125 Tablet] Promethazine [Phenergan] 25 mg PO Q6HR PRN #12 tab 11/26/20 Unknown Rx Albuterol Mdi (or & Nicu Only) 2 puff IH QID PRN #8.5 gram 01/07/21 Unknown Rx [ProAir HFA Inhaler] Benzonatate [Tessalon Perles] 100 mg PO Q8HR #30 capsule 01/07/21 Unknown Rx hydrOXYzine PAMOATE [Vistaril] 25 mg PO Q6HR PRN #30 capsule 01/07/21 Unknown Rx methylPREDNISolone [Medrol 4MG 4 mg PO 21 #21 tab.ds.pk 01/07/21 Unknown Rx DOSEPAK (21 tabs)] Dicyclomine [Bentyl] 20 mg PO Q6H PRN #30 tablet 03/16/21 Unknown Rx Famotidine [Pepcid] 20 mg PO BID #60 tablet 03/16/21 Unknown Rx Ondansetron [Zofran Odt] 4 mg PO Q6HR PRN #20 tab.rapdis 03/16/21 Unknown Rx Amoxicillin/Potassium Clav 1 each PO BID 7 Days #14 tablet 07/03/21 Unknown Rx [Augmentin 875-125 Tablet] Chlorhexidine Mouthwash [Peridex] 15 ml MM BID #1 bottle 07/23/21 Unknown Rx Lidocaine Viscous 2% 5 ml MM Q3H PRN #120 udc 07/23/21 Unknown Rx traMADoL [Ultram 50 MG tab] 50 mg PO Q6HR PRN #12 tablet 07/23/21 Unknown Rx Cyclobenzaprine [Flexeril] 10 mg PO TID PRN #15 tablet 07/26/21 Unknown Rx Ibuprofen [Motrin] 800 mg PO Q8HR PRN #30 tablet 07/26/21 Unknown Rx Butalb/Acetamin/Caff 50-325-40 1 - 2 each PO Q4H PRN #15 tablet 08/20/21 Unknown Rx [Fioricet 50-325-40] Cetirizine HCl [Zyrtec 10mg tab] 10 mg PO DAILY #30 tablet 08/20/21 Unknown Rx Doxycycline Hyclate [Lymepak] 100 mg PO Q12H #20 tablet 08/20/21 Unknown Rx Ibuprofen [Motrin] 800 mg PO Q8HR PRN #30 tablet 08/20/21 Unknown Rx Amoxicillin/Potassium Clav 1 each PO BID #14 tablet 09/16/21 Unknown Rx [Augmentin 875-125 Tablet] Benzonatate [Tessalon Perles] 100 mg PO Q8HR #10 capsule 09/16/21 Unknown Rx Dexamethasone [Decadron] 6 mg PO DAILY #7 tablet 09/16/21 Unknown Rx Fluticasone [Flonase] 1 spray NS QDAY #1 bottle 09/16/21 Unknown Rx Butalbit/Acetamin/Caff/Codeine 1 each PO Q6H PRN #20 capsule 01/12/22 Unknown Rx [Fioricet-Cod 95-843-19-30 Cap] Azithromycin [Zithromax Z-NELLI] 250 mg PO DAILY #6 tab 05/10/22 Unknown Rx Allergies Allergy/AdvReac Type Severity Reaction Status Date / Time Penicillins Allergy Hives Verified 05/10/22 07:32 sumatriptan [From Imitrex] Allergy Angioedema Verified 05/10/22 07:32 ED Review of Systems ROS: Stated complaint: ALLERGIC REACTION Other details as noted in HPI Comment: All other systems reviewed and negative Constitutional: denies: chills, fever Eyes: denies: eye pain, eye discharge, vision change ENT: denies: ear pain, throat pain Respiratory: denies: cough, shortness of breath, wheezing Cardiovascular: denies: chest pain, palpitations Endocrine: no symptoms reported Gastrointestinal: denies: abdominal pain, nausea, diarrhea Genitourinary: denies: urgency, dysuria, discharge Musculoskeletal: denies: back pain, joint swelling, arthralgia Skin: denies: rash, lesions Neurological: denies: headache, weakness, paresthesias Psychiatric: denies: anxiety, depression Hematological/Lymphatic: denies: easy bleeding, easy bruising ED Past Medical Hx - Past Medical History Previous Medical History?: Yes Hx Heart Attack/AMI: Yes Hx Psychiatric Treatment: Yes (anxiety) Hx Asthma: Yes Additional medical history: sinus, Obesity/ALLERGICS/ ANXIETY, bronchitis - Social History Smoking Status: Never Smoker Substance Use Type: None - Medications Home Medications: Home Medications Medication Instructions Recorded Confirmed Last Taken Type Pantoprazole [Protonix] 40 mg PO QDAY #30 tablet 07/16/19 Unknown Rx Albuterol Sulfate [Proventil Hfa] 2 puff IH Q4HR #1 hfa.aer.ad 09/19/20 Unknown Rx Famotidine [Pepcid] 40 mg PO QHS #30 tablet 11/06/20 Unknown Rx Amoxicillin/Potassium Clav 1 each PO BID #14 tablet 11/26/20 Unknown Rx [Augmentin 875-125 Tablet] Promethazine [Phenergan] 25 mg PO Q6HR PRN #12 tab 11/26/20 Unknown Rx Albuterol Mdi (or & Nicu Only) 2 puff IH QID PRN #8.5 gram 01/07/21 Unknown Rx [ProAir HFA Inhaler] Benzonatate [Tessalon Perles] 100 mg PO Q8HR #30 capsule 01/07/21 Unknown Rx hydrOXYzine PAMOATE [Vistaril] 25 mg PO Q6HR PRN #30 capsule 01/07/21 Unknown Rx methylPREDNISolone [Medrol 4MG 4 mg PO 21 #21 tab.ds.pk 01/07/21 Unknown Rx DOSEPAK (21 tabs)] Dicyclomine [Bentyl] 20 mg PO Q6H PRN #30 tablet 03/16/21 Unknown Rx Famotidine [Pepcid] 20 mg PO BID #60 tablet 03/16/21 Unknown Rx Ondansetron [Zofran Odt] 4 mg PO Q6HR PRN #20 tab.rapdis 03/16/21 Unknown Rx Amoxicillin/Potassium Clav 1 each PO BID 7 Days #14 tablet 07/03/21 Unknown Rx [Augmentin 875-125 Tablet] Chlorhexidine Mouthwash [Peridex] 15 ml MM BID #1 bottle 07/23/21 Unknown Rx Lidocaine Viscous 2% 5 ml MM Q3H PRN #120 udc 07/23/21 Unknown Rx traMADoL [Ultram 50 MG tab] 50 mg PO Q6HR PRN #12 tablet 07/23/21 Unknown Rx Cyclobenzaprine [Flexeril] 10 mg PO TID PRN #15 tablet 07/26/21 Unknown Rx Ibuprofen [Motrin] 800 mg PO Q8HR PRN #30 tablet 07/26/21 Unknown Rx Butalb/Acetamin/Caff 50-325-40 1 - 2 each PO Q4H PRN #15 tablet 08/20/21 Unknown Rx [Fioricet 50-325-40] Cetirizine HCl [Zyrtec 10mg tab] 10 mg PO DAILY #30 tablet 08/20/21 Unknown Rx Doxycycline Hyclate [Lymepak] 100 mg PO Q12H #20 tablet 08/20/21 Unknown Rx Ibuprofen [Motrin] 800 mg PO Q8HR PRN #30 tablet 08/20/21 Unknown Rx Amoxicillin/Potassium Clav 1 each PO BID #14 tablet 09/16/21 Unknown Rx [Augmentin 875-125 Tablet] Benzonatate [Tessalon Perles] 100 mg PO Q8HR #10 capsule 09/16/21 Unknown Rx Dexamethasone [Decadron] 6 mg PO DAILY #7 tablet 09/16/21 Unknown Rx Fluticasone [Flonase] 1 spray NS QDAY #1 bottle 09/16/21 Unknown Rx Butalbit/Acetamin/Caff/Codeine 1 each PO Q6H PRN #20 capsule 01/12/22 Unknown Rx [Fioricet-Cod 47-779-94-30 Cap] Azithromycin [Zithromax Z-NELLI] 250 mg PO DAILY #6 tab 05/10/22 Unknown Rx ED Physical Exam - General Limitations: No Limitations General appearance: alert, in no apparent distress - Head Head exam: Present: atraumatic, normocephalic - Eye Eye exam: Present: normal appearance - ENT ENT exam: Present: normal exam, normal orophraynx, other (uvula midline. no angioedema.) - Neck Neck exam: Present: normal inspection, full ROM. Absent: lymphadenopathy - Respiratory Respiratory exam: Present: normal lung sounds bilaterally. Absent: respiratory distress, wheezes, rales, rhonchi, stridor, chest wall tenderness, accessory muscle use, decreased breath sounds, prolonged expiratory - Cardiovascular Cardiovascular Exam: Present: regular rate, normal rhythm, normal heart sounds - Extremities Exam Extremities exam: Present: full ROM - Back Exam Back exam: Present: full ROM - Neurological Exam Neurological exam: Present: alert, oriented X3 - Psychiatric Psychiatric exam: Present: normal affect, normal mood - Skin Skin exam: Present: warm, dry, intact, normal color. Absent: rash ED Course Vital Signs 05/10/22 07:21 Temperature 98.6 F Pulse Rate 90 Respiratory 16 Rate Blood Pressure 147/103 [Right] O2 Sat by Pulse 98 Oximetry - Reevaluation(s) Reevaluation #1: 05/10/22 09:08 Patient is speaking in full sentences with no signs of distress noted. ED Medical Decision Making - Medical Decision Making This is a 21-year-old female that presents with allergic reaction. Patient is stable was examined by me. There is no facial swelling. No angioedema. There is no cellulitis. No hoarseness. Patient received 1 L normal saline, Benadryl, Decadron, and Pepcid in the ED IV. Patient was instructed not to operate any machinery after discharge due to possible drowsiness of Benadryl. Patient stated that a family member will drive patient home after discharge. I instructed patient that since she is allergic to penicillin it is documented on her records and a unknown medication that she was prescribed by her primary care doctor to stop taking these and I will prescribe patient with azithromycin as an alternative treatment for sinusitis. Patient was referred to Follow-up with a primary care doctor in 3-5 days or if symptoms worsen and continue return to emergency room as soon as possible. At time of discharge, the patient does not seem toxic or ill in appearance. No acute signs of distress noted. Patient agrees to discharge treatment plan of care. No further questions noted by the patient. Critical care attestation.: If time is entered above; I have spent that time in minutes in the direct care of this critically ill patient, excluding procedure time. ED Disposition Clinical Impression: Allergic reaction Qualifiers: Encounter type: initial encounter Qualified Code(s): T78.40XA - Allergy, unspecified, initial encounter Disposition: HOME / SELF CARE / HOMELESS Is pt being admited?: No Does the pt Need Aspirin: No Condition: Stable Additional Instructions: Follow-up with a primary care doctor in 3-5 days or if symptoms worsen and continue return to emergency room as soon as possible. As instructed and directed to you, stop taking the medication that was prescribed by your primary care doctor such as amoxicillin and the other medication that you are not sure of the name and replace this with azithromycin antibiotic for your sinusitis. Prescriptions: Azithromycin [Zithromax Z-NELLI] 250 mg PO DAILY #6 tab Referrals: ASH CHI MD [Referring] - 3-5 Days ALEXYS DURAN MD [Staff Physician] - 3-5 Days Time of Disposition: 09:10
[2022-05-10 11:05] VITALS: BP 136/76
== END 2022-05-12 17:18 | disposition home or self-care (01) ==
LOC: ED 07:05
DX: T78.40XA Allergy, unspecified, initial encounter (principal); F41.9 Anxiety disorder, unspecified; J45.909 Unspecified asthma, uncomplicated; Z88.0 Allergy status to penicillin; Z88.8 Allergy status to other drugs, medicaments and biological substances; Z79.899 Other long term (current) drug therapy; X58.XXXA Exposure to other specified factors, initial encounter
CPT/HCPCS: 96361; 96374; 96375; 99282; J1100; J1200; J3490; J7030

== ENCOUNTER 2022-05-27 09:24 | Emergency (ER) | payer OTHER ==
[2022-05-27 11:30] LABS: Blood Urea Nitrogen 6 mg/dL (7-17); Hemolysis Index 4
[2022-05-27 11:35] LABS: Basophils % (Auto) 0.3 % (0.0-1.8); Eosinophils # (Auto) 0.2 K/mm3 (0.0-0.4); Eosinophils % (Auto) 1.9 % (0.0-4.3); Hematocrit 37.1 % (30.3-42.9); Hemoglobin 12.3 gm/dl (10.1-14.3); Lymphocytes # (Auto) 3.5 K/mm3 (1.2-5.4); Lymphocytes % (Auto) 36.6 % (13.4-35.0); Mean Corpuscular HGB Conc 33 % (30-34); Mean Corpuscular Volume 90 fl (79-97); Monocytes # (Auto) 0.6 K/mm3 (0.0-0.8); Monocytes % (Auto) 6.3 % (0.0-7.3); Platelet Count 316 K/mm3 (140-440); Red Blood Count 4.13 M/mm3 (3.65-5.03); Red Cell Distribution Width 13.4 % (13.2-15.2)
[2022-05-27 11:48] LABS: BUN/Creatinine Ratio 9
[2022-05-27 12:41] LABS: Color,Urine Straw (Yellow)
[2022-05-27] MEDS ORDERED: DICYCLOMINE 20 MG/2 ML INJ IM ONE (13:53)
[2022-05-27] MEDS ORDERED: ONDANSETRON 4 MG ODT TAB PO ONE (13:53)
[2022-05-27 13:57] LABS: Mucus,Urine 1+ /HPF
[2022-05-27 15:03] LABS: HCG Qualitative,Urine Positive (Negative)
--- NOTE | 2022-05-27 15:35 | Emergency Department Report ---
ED N/V/D HPI - General Chief complaint: Abdominal Pain Stated complaint: STOMACH PAIN Time Seen by Provider: 05/27/22 13:38 Source: patient Mode of arrival: Ambulatory Limitations: No Limitations - History of Present Illness Initial comments: 21-year-old black female with past medical history of asthma and anxiety presents to the emergency department for evaluation of 1 week history of intermittent abdominal pain. She states that pain has been a crampy type pain that has been coming and going but for the last 2 days she has had persistent nausea vomiting along with fatigue. She denies fever, dysuria, vaginal discharge. She states that pain is worse is 10 out of 10. MD complaint: nausea, vomiting, abdominal pain -: Gradual, days(s), week(s) (1) Associated Abdominal Pain: Yes Location: diffuse Radiation: none Severity: moderate Pain Scale: 10 Quality: cramping, aching Consistency: intermittent Associated Symptoms: myalgias, malaise, nausea/vomiting, weakness. denies: chest pain, cough, diaphoresis, fever/chills, headaches, loss of appetite, rash, dysuria, shortness of breath, syncope - Related Data Previous Rx's Medication Instructions Recorded Last Taken Type Pantoprazole [Protonix] 40 mg PO QDAY #30 tablet 07/16/19 Unknown Rx Albuterol Sulfate [Proventil Hfa] 2 puff IH Q4HR #1 hfa.aer.ad 09/19/20 Unknown Rx Famotidine [Pepcid] 40 mg PO QHS #30 tablet 11/06/20 Unknown Rx Amoxicillin/Potassium Clav 1 each PO BID #14 tablet 11/26/20 Unknown Rx [Augmentin 875-125 Tablet] Promethazine [Phenergan] 25 mg PO Q6HR PRN #12 tab 11/26/20 Unknown Rx Albuterol Mdi (or & Nicu Only) 2 puff IH QID PRN #8.5 gram 01/07/21 Unknown Rx [ProAir HFA Inhaler] Benzonatate [Tessalon Perles] 100 mg PO Q8HR #30 capsule 01/07/21 Unknown Rx hydrOXYzine PAMOATE [Vistaril] 25 mg PO Q6HR PRN #30 capsule 01/07/21 Unknown Rx methylPREDNISolone [Medrol 4MG 4 mg PO 21 #21 tab.ds.pk 01/07/21 Unknown Rx DOSEPAK (21 tabs)] Dicyclomine [Bentyl] 20 mg PO Q6H PRN #30 tablet 03/16/21 Unknown Rx Famotidine [Pepcid] 20 mg PO BID #60 tablet 03/16/21 Unknown Rx Ondansetron [Zofran Odt] 4 mg PO Q6HR PRN #20 tab.rapdis 03/16/21 Unknown Rx Amoxicillin/Potassium Clav 1 each PO BID 7 Days #14 tablet 07/03/21 Unknown Rx [Augmentin 875-125 Tablet] Chlorhexidine Mouthwash [Peridex] 15 ml MM BID #1 bottle 07/23/21 Unknown Rx Lidocaine Viscous 2% 5 ml MM Q3H PRN #120 udc 07/23/21 Unknown Rx traMADoL [Ultram 50 MG tab] 50 mg PO Q6HR PRN #12 tablet 07/23/21 Unknown Rx Cyclobenzaprine [Flexeril] 10 mg PO TID PRN #15 tablet 07/26/21 Unknown Rx Ibuprofen [Motrin] 800 mg PO Q8HR PRN #30 tablet 07/26/21 Unknown Rx Butalb/Acetamin/Caff 50-325-40 1 - 2 each PO Q4H PRN #15 tablet 08/20/21 Unknown Rx [Fioricet 50-325-40] Cetirizine HCl [Zyrtec 10mg tab] 10 mg PO DAILY #30 tablet 08/20/21 Unknown Rx Doxycycline Hyclate [Lymepak] 100 mg PO Q12H #20 tablet 08/20/21 Unknown Rx Ibuprofen [Motrin] 800 mg PO Q8HR PRN #30 tablet 08/20/21 Unknown Rx Amoxicillin/Potassium Clav 1 each PO BID #14 tablet 09/16/21 Unknown Rx [Augmentin 875-125 Tablet] Benzonatate [Tessalon Perles] 100 mg PO Q8HR #10 capsule 09/16/21 Unknown Rx Dexamethasone [Decadron] 6 mg PO DAILY #7 tablet 09/16/21 Unknown Rx Fluticasone [Flonase] 1 spray NS QDAY #1 bottle 09/16/21 Unknown Rx Butalbit/Acetamin/Caff/Codeine 1 each PO Q6H PRN #20 capsule 01/12/22 Unknown Rx [Fioricet-Cod 81-786-30-30 Cap] Azithromycin [Zithromax Z-NELLI] 250 mg PO DAILY #6 tab 05/10/22 Unknown Rx Ondansetron [Zofran Odt] 4 mg PO Q8HR PRN #12 tab.rapdis 05/27/22 Unknown Rx Prenat Vit 17/Iron/Folic/Om3,6 1 each PO DAILY #30 cap 05/27/22 Unknown Rx [Elite-Ob 400 Capsule] Allergies Allergy/AdvReac Type Severity Reaction Status Date / Time Penicillins Allergy Hives Verified 05/27/22 10:11 sumatriptan [From Imitrex] Allergy Angioedema Verified 05/27/22 10:11 ED Review of Systems ROS: Stated complaint: STOMACH PAIN Other details as noted in HPI Comment: All other systems reviewed and negative Constitutional: malaise, weakness. denies: chills, fever ENT: denies: congestion Respiratory: denies: shortness of breath Cardiovascular: denies: chest pain, palpitations Gastrointestinal: abdominal pain, nausea, vomiting. denies: diarrhea, hematemesis, melena, hematochezia Genitourinary: denies: urgency, dysuria, frequency, hematuria, discharge, dyspareunia Musculoskeletal: denies: back pain Skin: denies: rash, lesions Neurological: denies: headache, weakness ED Past Medical Hx - Past Medical History Hx Heart Attack/AMI: Yes Hx Psychiatric Treatment: Yes (anxiety) Hx Asthma: Yes Additional medical history: sinus, Obesity/ALLERGICS/ ANXIETY, bronchitis - Social History Smoking Status: Never Smoker Substance Use Type: None - Medications Home Medications: Home Medications Medication Instructions Recorded Confirmed Last Taken Type Pantoprazole [Protonix] 40 mg PO QDAY #30 tablet 07/16/19 Unknown Rx Albuterol Sulfate [Proventil Hfa] 2 puff IH Q4HR #1 hfa.aer.ad 09/19/20 Unknown Rx Famotidine [Pepcid] 40 mg PO QHS #30 tablet 11/06/20 Unknown Rx Amoxicillin/Potassium Clav 1 each PO BID #14 tablet 11/26/20 Unknown Rx [Augmentin 875-125 Tablet] Promethazine [Phenergan] 25 mg PO Q6HR PRN #12 tab 11/26/20 Unknown Rx Albuterol Mdi (or & Nicu Only) 2 puff IH QID PRN #8.5 gram 01/07/21 Unknown Rx [ProAir HFA Inhaler] Benzonatate [Tessalon Perles] 100 mg PO Q8HR #30 capsule 01/07/21 Unknown Rx hydrOXYzine PAMOATE [Vistaril] 25 mg PO Q6HR PRN #30 capsule 01/07/21 Unknown Rx methylPREDNISolone [Medrol 4MG 4 mg PO 21 #21 tab.ds.pk 01/07/21 Unknown Rx DOSEPAK (21 tabs)] Dicyclomine [Bentyl] 20 mg PO Q6H PRN #30 tablet 03/16/21 Unknown Rx Famotidine [Pepcid] 20 mg PO BID #60 tablet 03/16/21 Unknown Rx Ondansetron [Zofran Odt] 4 mg PO Q6HR PRN #20 tab.rapdis 03/16/21 Unknown Rx Amoxicillin/Potassium Clav 1 each PO BID 7 Days #14 tablet 07/03/21 Unknown Rx [Augmentin 875-125 Tablet] Chlorhexidine Mouthwash [Peridex] 15 ml MM BID #1 bottle 07/23/21 Unknown Rx Lidocaine Viscous 2% 5 ml MM Q3H PRN #120 udc 07/23/21 Unknown Rx traMADoL [Ultram 50 MG tab] 50 mg PO Q6HR PRN #12 tablet 07/23/21 Unknown Rx Cyclobenzaprine [Flexeril] 10 mg PO TID PRN #15 tablet 07/26/21 Unknown Rx Ibuprofen [Motrin] 800 mg PO Q8HR PRN #30 tablet 07/26/21 Unknown Rx Butalb/Acetamin/Caff 50-325-40 1 - 2 each PO Q4H PRN #15 tablet 08/20/21 Unknown Rx [Fioricet 50-325-40] Cetirizine HCl [Zyrtec 10mg tab] 10 mg PO DAILY #30 tablet 08/20/21 Unknown Rx Doxycycline Hyclate [Lymepak] 100 mg PO Q12H #20 tablet 08/20/21 Unknown Rx Ibuprofen [Motrin] 800 mg PO Q8HR PRN #30 tablet 08/20/21 Unknown Rx Amoxicillin/Potassium Clav 1 each PO BID #14 tablet 09/16/21 Unknown Rx [Augmentin 875-125 Tablet] Benzonatate [Tessalon Perles] 100 mg PO Q8HR #10 capsule 09/16/21 Unknown Rx Dexamethasone [Decadron] 6 mg PO DAILY #7 tablet 09/16/21 Unknown Rx Fluticasone [Flonase] 1 spray NS QDAY #1 bottle 09/16/21 Unknown Rx Butalbit/Acetamin/Caff/Codeine 1 each PO Q6H PRN #20 capsule 01/12/22 Unknown Rx [Fioricet-Cod 75-384-09-30 Cap] Azithromycin [Zithromax Z-NELLI] 250 mg PO DAILY #6 tab 05/10/22 Unknown Rx Ondansetron [Zofran Odt] 4 mg PO Q8HR PRN #12 tab.rapdis 05/27/22 Unknown Rx Prenat Vit 17/Iron/Folic/Om3,6 1 each PO DAILY #30 cap 05/27/22 Unknown Rx [Elite-Ob 400 Capsule] ED Physical Exam - General Limitations: No Limitations General appearance: alert, in no apparent distress - Head Head exam: Present: atraumatic, normocephalic - Eye Eye exam: Present: normal appearance. Absent: conjunctival injection, periorbital swelling, periorbital tenderness - Neck Neck exam: Present: normal inspection, full ROM. Absent: tenderness, lymphadenopathy - Respiratory Respiratory exam: Present: normal lung sounds bilaterally. Absent: respiratory distress, wheezes, rales, rhonchi, stridor, chest wall tenderness - Cardiovascular Cardiovascular Exam: Present: regular rate, normal heart sounds - GI/Abdominal GI/Abdominal exam: Present: soft, normal bowel sounds. Absent: distended, tenderness, guarding, rebound, rigid - Extremities Exam Extremities exam: Present: normal inspection, full ROM, normal capillary refill. Absent: pedal edema, joint swelling, calf tenderness - Back Exam Back exam: Present: normal inspection. Absent: CVA tenderness (R), CVA tenderness (L), vertebral tenderness - Neurological Exam Neurological exam: Present: alert, oriented X3, normal gait - Psychiatric Psychiatric exam: Present: normal affect, normal mood - Skin Skin exam: Present: warm, dry, intact, normal color ED Course Vital Signs 05/27/22 05/27/22 10:09 16:27 Temperature 98 F Pulse Rate 88 Respiratory 16 16 Rate Blood Pressure 130/88 [Left] O2 Sat by Pulse 100 98 Oximetry - Reevaluation(s) Reevaluation #1: 05/27/22 15:31 Nausea vomiting and abdominal cramping resolved. Patient states that she had a good night while waiting and feels much better. ED Medical Decision Making - Lab Data Result diagrams: 05/27/22 10:29 05/27/22 10:29 - Medical Decision Making 21-year-old black female with past medical history of asthma and anxiety presents to the emergency department for evaluation of 1 week history of intermittent abdominal pain. She states that pain has been a crampy type pain that has been coming and going but for the last 2 days she has had persistent nausea vomiting along with fatigue. She denies fever, dysuria, vaginal discharge. She states that pain is worse is 10 out of 10. Nausea vomiting abdominal pain totally resolved. Urine positive for . Patient discharged home with Zofran and vitamins and advised to follow- up with [facility] in the next week. She is advised to return to the emergency department as needed. She verbalizes understanding of and agreement with plan of care. Critical care attestation.: If time is entered above; I have spent that time in minutes in the direct care of this critically ill patient, excluding procedure time. ED Disposition Clinical Impression: Nausea/vomiting in Disposition: 01 HOME / SELF CARE / HOMELESS Is pt being admited?: No Does the pt Need Aspirin: No Condition: Stable Instructions: Morning Sickness, [id number], Abdominal Pain (ED) Additional Instructions: Take medications as prescribed. Increase intake of noncaffeinated fluids. Use Tylenol only as needed for pain. Follow-up with [facility] for further evaluation and management of period. Prescriptions: Prenat Vit 17/Iron/Folic/Om3,6 [Elite-Ob 400 Capsule] 1 each PO DAILY #30 cap Ondansetron [Zofran Odt] 4 mg PO Q8HR PRN #12 tab.rapdis PRN Reason: Nausea And Vomiting Referrals: [facility] [Provider Group] - 3-5 Days [facility] [Provider Group] - 3-5 Days [facility] [Provider Group] - 3-5 Days Time of Disposition: 15:36
[2022-05-27 16:34] VITALS: BP 130/88
== END 2022-05-27 16:34 | disposition home or self-care (01) ==
LOC: ED 09:24
DX: O21.9 Vomiting of pregnancy, unspecified (principal); Z3A.00 Weeks of gestation of pregnancy not specified; J45.909 Unspecified asthma, uncomplicated; Z88.0 Allergy status to penicillin
CPT/HCPCS: 36415; 80048; 81001; 81025; 83690; 85025; 96372; 99283; J0500; J3490; Q0162

== ENCOUNTER 2022-05-28 10:31 | Emergency (ER) | payer OTHER ==
[2022-05-28 11:11] VITALS: BP 159/93
--- NOTE | 2022-05-28 13:00 | Emergency Department Report ---
ED Abdominal Pain HPI - General Chief Complaint: Abdominal Pain Stated Complaint: PAIN IN STOMACH Time Seen by Provider: 05/28/22 11:22 Source: patient Mode of arrival: Ambulatory Limitations: No Limitations - History of Present Illness Initial Comments: 21-year-old black female with no past medical history presents to the emergency department for evaluation of possible . Patient was seen here yesterday and had a positive urine test, but states that she took 2 home test and went to a free clinic and had a test all of which was negative. She states that she is here for verification to see if she is or not. She states that she was seen here yesterday for abdominal pain nausea vomiting which were relieved by the medications that she received yesterday but she is concerned as to whether or not she is really or not. She is without complaint of this time MD Complaint: other ( verification) Associated Symptoms: denies: nausea, vomiting, fever, chills, dysuria, hematemesis, hematochezia, melena, hematuria, anorexia, syncope - Related Data LMP (females 10-50): 2 months Previous Rx's Medication Instructions Recorded Last Taken Type Pantoprazole [Protonix] 40 mg PO QDAY #30 tablet 07/16/19 Unknown Rx Albuterol Sulfate [Proventil Hfa] 2 puff IH Q4HR #1 hfa.aer.ad 09/19/20 Unknown Rx Famotidine [Pepcid] 40 mg PO QHS #30 tablet 11/06/20 Unknown Rx Amoxicillin/Potassium Clav 1 each PO BID #14 tablet 11/26/20 Unknown Rx [Augmentin 875-125 Tablet] Promethazine [Phenergan] 25 mg PO Q6HR PRN #12 tab 11/26/20 Unknown Rx Albuterol Mdi (or & Nicu Only) 2 puff IH QID PRN #8.5 gram 01/07/21 Unknown Rx [ProAir HFA Inhaler] Benzonatate [Tessalon Perles] 100 mg PO Q8HR #30 capsule 01/07/21 Unknown Rx hydrOXYzine PAMOATE [Vistaril] 25 mg PO Q6HR PRN #30 capsule 01/07/21 Unknown Rx methylPREDNISolone [Medrol 4MG 4 mg PO 21 #21 tab.ds.pk 01/07/21 Unknown Rx DOSEPAK (21 tabs)] Dicyclomine [Bentyl] 20 mg PO Q6H PRN #30 tablet 03/16/21 Unknown Rx Famotidine [Pepcid] 20 mg PO BID #60 tablet 03/16/21 Unknown Rx Ondansetron [Zofran Odt] 4 mg PO Q6HR PRN #20 tab.rapdis 03/16/21 Unknown Rx Amoxicillin/Potassium Clav 1 each PO BID 7 Days #14 tablet 07/03/21 Unknown Rx [Augmentin 875-125 Tablet] Chlorhexidine Mouthwash [Peridex] 15 ml MM BID #1 bottle 07/23/21 Unknown Rx Lidocaine Viscous 2% 5 ml MM Q3H PRN #120 udc 07/23/21 Unknown Rx traMADoL [Ultram 50 MG tab] 50 mg PO Q6HR PRN #12 tablet 07/23/21 Unknown Rx Cyclobenzaprine [Flexeril] 10 mg PO TID PRN #15 tablet 07/26/21 Unknown Rx Ibuprofen [Motrin] 800 mg PO Q8HR PRN #30 tablet 07/26/21 Unknown Rx Butalb/Acetamin/Caff 50-325-40 1 - 2 each PO Q4H PRN #15 tablet 08/20/21 Unknown Rx [Fioricet 50-325-40] Cetirizine HCl [Zyrtec 10mg tab] 10 mg PO DAILY #30 tablet 08/20/21 Unknown Rx Doxycycline Hyclate [Lymepak] 100 mg PO Q12H #20 tablet 08/20/21 Unknown Rx Ibuprofen [Motrin] 800 mg PO Q8HR PRN #30 tablet 08/20/21 Unknown Rx Amoxicillin/Potassium Clav 1 each PO BID #14 tablet 09/16/21 Unknown Rx [Augmentin 875-125 Tablet] Benzonatate [Tessalon Perles] 100 mg PO Q8HR #10 capsule 09/16/21 Unknown Rx Dexamethasone [Decadron] 6 mg PO DAILY #7 tablet 09/16/21 Unknown Rx Fluticasone [Flonase] 1 spray NS QDAY #1 bottle 09/16/21 Unknown Rx Butalbit/Acetamin/Caff/Codeine 1 each PO Q6H PRN #20 capsule 01/12/22 Unknown Rx [Fioricet-Cod 46-183-91-30 Cap] Azithromycin [Zithromax Z-NELLI] 250 mg PO DAILY #6 tab 05/10/22 Unknown Rx Ondansetron [Zofran Odt] 4 mg PO Q8HR PRN #12 tab.rapdis 05/27/22 Unknown Rx Prenat Vit 17/Iron/Folic/Om3,6 1 each PO DAILY #30 cap 05/27/22 Unknown Rx [Elite-Ob 400 Capsule] Dicyclomine [Bentyl] 20 mg PO QID PRN #30 tablet 05/28/22 Unknown Rx Allergies Allergy/AdvReac Type Severity Reaction Status Date / Time Penicillins Allergy Hives Verified 05/28/22 11:11 sumatriptan [From Imitrex] Allergy Angioedema Verified 05/28/22 11:11 ED Review of Systems ROS: Stated complaint: PAIN IN STOMACH Other details as noted in HPI Comment: All other systems reviewed and negative Constitutional: denies: chills, fever Respiratory: denies: shortness of breath Cardiovascular: denies: chest pain, palpitations Gastrointestinal: denies: abdominal pain, nausea, vomiting Neurological: denies: weakness ED Past Medical Hx - Past Medical History Previous Medical History?: Yes Hx Heart Attack/AMI: Yes Hx Psychiatric Treatment: Yes (anxiety) Hx Asthma: Yes Additional medical history: sinus, Obesity/ALLERGICS/ ANXIETY, bronchitis - Social History Smoking Status: Never Smoker Substance Use Type: None - Medications Home Medications: Home Medications Medication Instructions Recorded Confirmed Last Taken Type Pantoprazole [Protonix] 40 mg PO QDAY #30 tablet 07/16/19 Unknown Rx Albuterol Sulfate [Proventil Hfa] 2 puff IH Q4HR #1 hfa.aer.ad 09/19/20 Unknown Rx Famotidine [Pepcid] 40 mg PO QHS #30 tablet 11/06/20 Unknown Rx Amoxicillin/Potassium Clav 1 each PO BID #14 tablet 11/26/20 Unknown Rx [Augmentin 875-125 Tablet] Promethazine [Phenergan] 25 mg PO Q6HR PRN #12 tab 11/26/20 Unknown Rx Albuterol Mdi (or & Nicu Only) 2 puff IH QID PRN #8.5 gram 01/07/21 Unknown Rx [ProAir HFA Inhaler] Benzonatate [Tessalon Perles] 100 mg PO Q8HR #30 capsule 01/07/21 Unknown Rx hydrOXYzine PAMOATE [Vistaril] 25 mg PO Q6HR PRN #30 capsule 01/07/21 Unknown Rx methylPREDNISolone [Medrol 4MG 4 mg PO 21 #21 tab.ds.pk 01/07/21 Unknown Rx DOSEPAK (21 tabs)] Dicyclomine [Bentyl] 20 mg PO Q6H PRN #30 tablet 03/16/21 Unknown Rx Famotidine [Pepcid] 20 mg PO BID #60 tablet 03/16/21 Unknown Rx Ondansetron [Zofran Odt] 4 mg PO Q6HR PRN #20 tab.rapdis 03/16/21 Unknown Rx Amoxicillin/Potassium Clav 1 each PO BID 7 Days #14 tablet 07/03/21 Unknown Rx [Augmentin 875-125 Tablet] Chlorhexidine Mouthwash [Peridex] 15 ml MM BID #1 bottle 07/23/21 Unknown Rx Lidocaine Viscous 2% 5 ml MM Q3H PRN #120 udc 07/23/21 Unknown Rx traMADoL [Ultram 50 MG tab] 50 mg PO Q6HR PRN #12 tablet 07/23/21 Unknown Rx Cyclobenzaprine [Flexeril] 10 mg PO TID PRN #15 tablet 07/26/21 Unknown Rx Ibuprofen [Motrin] 800 mg PO Q8HR PRN #30 tablet 07/26/21 Unknown Rx Butalb/Acetamin/Caff 50-325-40 1 - 2 each PO Q4H PRN #15 tablet 08/20/21 Unknown Rx [Fioricet 50-325-40] Cetirizine HCl [Zyrtec 10mg tab] 10 mg PO DAILY #30 tablet 08/20/21 Unknown Rx Doxycycline Hyclate [Lymepak] 100 mg PO Q12H #20 tablet 08/20/21 Unknown Rx Ibuprofen [Motrin] 800 mg PO Q8HR PRN #30 tablet 08/20/21 Unknown Rx Amoxicillin/Potassium Clav 1 each PO BID #14 tablet 09/16/21 Unknown Rx [Augmentin 875-125 Tablet] Benzonatate [Tessalon Perles] 100 mg PO Q8HR #10 capsule 09/16/21 Unknown Rx Dexamethasone [Decadron] 6 mg PO DAILY #7 tablet 09/16/21 Unknown Rx Fluticasone [Flonase] 1 spray NS QDAY #1 bottle 09/16/21 Unknown Rx Butalbit/Acetamin/Caff/Codeine 1 each PO Q6H PRN #20 capsule 01/12/22 Unknown Rx [Fioricet-Cod 20-277-10-30 Cap] Azithromycin [Zithromax Z-NELLI] 250 mg PO DAILY #6 tab 05/10/22 Unknown Rx Ondansetron [Zofran Odt] 4 mg PO Q8HR PRN #12 tab.rapdis 05/27/22 Unknown Rx Prenat Vit 17/Iron/Folic/Om3,6 1 each PO DAILY #30 cap 05/27/22 Unknown Rx [Elite-Ob 400 Capsule] Dicyclomine [Bentyl] 20 mg PO QID PRN #30 tablet 05/28/22 Unknown Rx ED Physical Exam - General Limitations: No Limitations General appearance: alert, in no apparent distress - Head Head exam: Present: atraumatic, normocephalic - Eye Eye exam: Present: normal appearance. Absent: conjunctival injection - ENT ENT exam: Present: normal exam, normal orophraynx - Neck Neck exam: Present: normal inspection, full ROM. Absent: tenderness, lymphadenopathy - Respiratory Respiratory exam: Present: normal lung sounds bilaterally. Absent: respiratory distress, wheezes, chest wall tenderness - Cardiovascular Cardiovascular Exam: Present: regular rate, normal heart sounds - GI/Abdominal GI/Abdominal exam: Present: soft, normal bowel sounds. Absent: distended, guarding, rigid - Extremities Exam Extremities exam: Present: normal inspection, normal capillary refill - Back Exam Back exam: Present: normal inspection. Absent: CVA tenderness (R), CVA tenderness (L) - Neurological Exam Neurological exam: Present: alert, oriented X3 - Psychiatric Psychiatric exam: Present: normal affect, normal mood - Skin Skin exam: Present: warm, dry, intact, normal color ED Course Vital Signs 05/28/22 11:09 Temperature 98.4 F Pulse Rate 93 H Respiratory 18 Rate Blood Pressure 159/93 [Left] O2 Sat by Pulse 99 Oximetry ED Medical Decision Making - Medical Decision Making 21-year-old black female with no past medical history presents to the emergency department for evaluation of possible . Patient was seen here yester day and had a positive urine test, but states that she took 2 home test and went to a free clinic and had a test all of which was negative. She states that she is here for verification to see if she is or not. She states that she was seen here yesterday for abdominal pain nausea vomiting which were relieved by the medications that she received yesterday but she is concerned as to whether or not she is really or not. She is without complaint of this time Serum hCG negative. Patient discharged home with prescription for Bentyl per her request stating that she wanted some just in case her abdominal pain returned. She is advised to follow-up with [facility] for further evaluation and management and return to the emergency department as needed. She verbalizes understanding of and agreement with plan of care. Laboratory Last Values HCG, Quant < 2.0 mIU/mL (0-4) 05/28/22 11:52 Critical care attestation.: If time is entered above; I have spent that time in minutes in the direct care of this critically ill patient, excluding procedure time. ED Disposition Clinical Impression: Abdominal pain Disposition: HOME / SELF CARE / HOMELESS Is pt being admited?: No Does the pt Need Aspirin: No Condition: Stable Instructions: Abdominal Pain, Adult, [id number], Abdominal Pain (ED) Additional Instructions: Take medications as prescribed. Follow-up with your primary care provider if no improvement or worsening symptoms. Return to the emergency department as needed. Prescriptions: Dicyclomine [Bentyl] 20 mg PO QID PRN #30 tablet PRN Reason: pain Referrals: ALEXYS DURAN MD [Staff Physician] - 3-5 Days Forms: Work/School Release Form(ED) Time of Disposition: 13:00
== END 2022-05-29 01:15 | disposition home or self-care (01) ==
LOC: ED 10:31
DX: R10.9 Unspecified abdominal pain (principal); Z88.0 Allergy status to penicillin; Z88.8 Allergy status to other drugs, medicaments and biological substances; J45.909 Unspecified asthma, uncomplicated; F41.9 Anxiety disorder, unspecified
CPT/HCPCS: 36415; 84702; 99283